=== PATIENT | female | born 1960 | race Caucasian/White ===

== ENCOUNTER → 2016-11-22 | Outpatient (CLI) | payer OTHER ==
[~2016-11-22] MED LIST: ATOR-22 PO; ATV1 PO; CHOL100027 PO; CLON0.5T3 PO; CYM/30 PO; GABA1CAP5 PO; GADAVIST IV PRN; LIOT1TAB10 PO; MAGN400T5 PO; OMEG10007 PO; SOLUMEDROL IV; VITAMIN B12 PO
--- NOTE | 2016-11-22 12:15 | DIAGNOSTIC IMAGING REPORT ---
CERVICAL SPINE COMBO HISTORY: 56 years-old Female bilateral arm and leg weakness with multiple sclerosis and radiculopathy. COMPARISON: MRI of the brain 11/29/2011 TECHNIQUE: Multiplanar multisequence MRI of the cervical spine was obtained both with and without the intravenous administration of 8.5 mL Gadavist FINDINGS: There is partial bony fusion at C2-C3 involving the posterior intervertebral disc space and the facet joints bilaterally. Again noted are cystic appearing foci measuring up to 1.9 cm in craniocaudal dimension involving the calvarium posterior inferior to the torcula, unchanged which may reflect prominent arachnoid granulations. Posterior fossa is otherwise unremarkable. There is no focal bone marrow edema, fracture or malalignment. Several T2 hyperintense lesions are present throughout the cervical spinal cord extending from C1-T2, located within both the central and peripheral cord. No associated abnormal enhancement within these lesions identified to suggest active demyelination. C2-C3: No central canal or foraminal narrowing. C3-C4: No central canal or foraminal narrowing. C4-C5: Minimal uncovertebral spurring and facet arthrosis without significant central canal or foraminal narrowing. C5-C6: 3 mm posterior listhesis of C5 on C6, likely on a degenerative basis is present with small circumferential annular disc bulge, small annular tear and uncovertebral spurring causing mild central canal stenosis. Bilateral foramen are patent. C6-C7: Small broad-based posterior disc osteophyte complex partially effaces the ventral thecal sac without significant central canal or foraminal narrowing. C7-T1: Uncovertebral spurring and mild facet arthrosis without central canal or foraminal narrowing. No central canal or foraminal stenosis identified involving the imaged upper thoracic levels. IMPRESSION: 1. Several T2 hyperintense lesions scattered throughout the cervical cord are noted, most compatible with patient's known diagnosis of multiple sclerosis. No associated enhancement identified to suggest active demyelination. 2. Mild discogenic degenerative changes of the cervical spine, most pronounced at C5-C6 and C6-C7. At C5-C6 there is resultant mild central canal stenosis. 3. 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 The above report was generated using voice recognition software. It may contain grammatical, syntax or spelling errors. Electronically signed by: Melvin Crooks M.D. 11/22/2016 12:14 PM Dictated Date/Time: 11/22/2016 9:56 AM
== END | disposition home or self-care (01) ==
LOC: C.MRI 08:55
PROVIDERS: ATTEND Psychiatry & Neurology Neurology
DX: G35 Multiple sclerosis (principal)

== ENCOUNTER 2023-03-15 10:54 | Inpatient (IN) ==
[2023-03-15] MEDS ORDERED: ONDANSETRON INJ 2 MG/ML 2 ML VIAL IV STA (11:21)
[2023-03-15] MEDS ORDERED: MoRPHine SULFATE 4 MG/ML 1 ML CARP\\VIAL IV STA (11:21)
[2023-03-15] MEDS ORDERED: SODIUM CHLORIDE 0.9% 1,000 ML IV ONE (12:50)
[2023-03-15 13:12] LABS: Basophils # (auto) 0.04 K/uL (0.00-0.20); Basophils % (auto) 0.5 %; Eosinophils # (auto) 0.05 K/uL (0.00-0.50); Eosinophils % (auto) 0.6 %; Hematocrit (blood only) 47.5 % (37.0-47.0); Hemoglobin 15.9 g/dl (12.0-16.0); Immature Granulocytes # (auto) 0.04 K/uL (0.01-0.20); Immature Granulocytes % (auto) 0.5 %; Lymphocytes # (auto) 2.41 K/uL (1.20-3.40); Mean Corpuscular Hemoglobin 28.6 pg (25.0-34.0); Mean Corpuscular Hgb Conc 33.5 g/dL (32.0-36.0); Mean Corpuscular Volume 85.6 fL (80.0-100.0); Mean Platelet Volume 9.1 fL (9.4-12.4); Monocytes # (auto) 0.49 K/uL (0.11-0.59); Monocytes % (auto) 6.1 %; Neutrophils % (auto) 62.3 %; Platelet Count 345 K/uL (130-400); RDW Coefficient of Variation 13.3 % (11.5-14.5); RDW Standard Deviation 41.9 fL (36.4-46.3); Red Blood Count 5.55 M/uL (4.20-5.40); White Blood Count 8.03 K/ul (4.8-10.8)
[2023-03-15 13:24] LABS: Albumin Globulin Ratio 1.6 (0.9-2); Albumin Level 4.4 gm/dl (3.4-5.0); BUN Creatinine Ratio 21.2 (10-20); Bilirubin,Total 1.2 mg/dl (0.2-1.0); Calcium 9.5 mg/dl (8.6-10.3); Creatinine Clr Calc Pharmacy 66.5 ml/min; Est GFR (African American) 85.1 ml/min; Est GFR (Non-African American) 73.4 ml/min; Globulin 2.7 gm/dl (2.5-4.0); Potassium 3.9 mmol/L (3.5-5.1); Total Protein 7.1 gm/dl (6.0-8.3)
--- NOTE | 2023-03-15 13:24 | XRay Report ---
XR wrist LT min 3V routine CLINICAL HISTORY: L wrist injury s/p fall from ladder TECHNIQUE: 4 views of the left wrist were obtained. Comparison: None available at the time of this dictation. FINDINGS: There is a fracture of the distal radial metadiaphysis with apex anterior angulation and mild posteri or displacement. Articular surface involvement is not definitely visualized. Joint spaces are well-pr eserved. Soft tissue swelling is seen about the wrist. IMPRESSION: Mildly displaced fracture of the distal radius with associated soft tissue swelling. ACT 112: Negative or not required by law. Electronically signed by: Delonte Valenzuela M.D. 03/15/2023 1:23 PM
--- NOTE | 2023-03-15 13:24 | XRay Report ---
XR ankle LT min 3V routine CLINICAL HISTORY: L ankle injury s/p fall from ladder COMPARISON: None FINDINGS: Note is made of an acute oblique minimally displaced fracture of the distal shaft of the l eft fibula. This extends from the level of the tibiotalar joint 3.8 cm proximally. No ankle mortise w idening is identified. No acute fracture the distal left tibia is identified. Posterior and plantar c alcaneal spurs are present. Moderate anterolateral ankle soft tissue swelling is noted. A 8 mm lucent lesion with thin sclerotic margin within the talar dome is present. This is benign and could be rela lillian to a degenerative process such as an osteochondral abnormality. IMPRESSION: 1. Acute oblique minimally displaced fracture of the distal shaft of the left fibula, as described ab milana. 2. No ankle mortise widening. 3. No acute distal left tibial fracture. 4. Anterolateral ankle soft tissue swelling. ACT 112: Negative or not required by law. Electronically signed by: Tano Brady M.D. 03/15/2023 1:23 PM
[2023-03-15 13:30] LABS: Troponin I High Sensitivity 2.7 pg/ml (0-14)
--- NOTE | 2023-03-15 13:32 | XRay Report ---
XR chest 1V portable CLINICAL HISTORY: Fall. Chest pain. COMPARISON STUDY: Chest radiograph August 13, 2015. FINDINGS: Lung volumes are normal. Lungs are clear. There is no pneumothorax or pleural effusion. Car diac size is normal. Mediastinal contours are normal. There is no evidence for pulmonary edema. IMPRESSION: No acute cardiopulmonary findings. ACT 112: Negative or not required by law. Electronically signed by: Tano Brady M.D. 03/15/2023 1:29 PM
--- NOTE | 2023-03-15 14:57 | Emergency Department Note ---
ED Provider Note History of Present Illness Chief Complaint: Fall Stated Complaint: FALL POSS FX LEFT ARM Time Seen by Provider: 03/15/23 11:07 63-year-old female who presents to the emergency department for evaluation of injuries after she fell off of a small stepstool while attempting to hang curtains in her home. The patient reports losing her balance and falling. She reports left wrist and left ankle pain. She denies head injury, neck pain, back pain, chest pain or abdominal pain. The patient rates her discomfort a 9 out of 10. The patient does have a history of multiple sclerosis. She does use a cane in her right hand for ambulatory assistance. Home Medications Medication Instructions Recorded Confirmed Type atorvastatin 40 mg tablet 40 mg PO DAILY 03/15/23 03/15/23 History cholecalciferol (vitamin D3) 25 1,000 unit PO DAILY 03/15/23 03/15/23 History mcg (1,000 unit) capsule (Vitamin D3) clonazepam 0.5 mg tablet 0.5 mg PO HS 03/15/23 03/15/23 History cyanocobalamin (vitamin B-12) 1,000 mcg PO QPM 03/15/23 03/15/23 History 1,000 mcg tablet (Vitamin B-12) docusate sodium 100 mg tablet 100 mg PO BID PRN Constipation 03/15/23 03/15/23 History duloxetine 30 mg capsule,delayed 30 mg PO DAILY 03/15/23 03/15/23 History release duloxetine 60 mg capsule,delayed 60 mg PO DAILY 03/15/23 03/15/23 History release gabapentin 400 mg capsule 400 mg PO QID 03/15/23 03/15/23 History liothyronine 5 mcg tablet 12.5 mcg PO DAILY 03/15/23 03/15/23 History magnesium oxide 400 mg PO QPM 03/15/23 03/15/23 History Allergies Allergy/AdvReac Type Severity Reaction Status Date / Time nickel Allergy Intermediate itchy ears Verified 03/15/23 15:00 with earrings WITH NICKEL -gets infected PER PT Past Med/Surg History Medical History Tobacco use Depression Hyperlipidemia Multiple sclerosis Surgical History Hx of tonsillectomy History of cholecystectomy Family History Other Breast cancer Cancer Diabetes Heart disease Social History Smoking Status: Current every day smoker Cigarettes Per Day: 0.5-1ppd; Hx Alcohol Use: No Hx Substance Use: No Preferred Language: Albanian marital status: Current Living Situation: Spouse Feels Safe at Home: Yes Physical Exam Vital Signs Vital Signs - 24 hr 03/15/23 11:01 03/15/23 12:44 03/15/23 12:46 Temperature 36.5 C Temperature Source Temporal Artery Scan Pulse Rate 69 41 L 49 L Pulse Rate from SpO2 Sensor 41 L Pulse Rhythm Regular Pulse Strength Normal Respiratory Rate 20 20 Respiratory Effort / Characteristics Non-Labored Spontaneous Respiratory Depth Normal Respiratory Pattern Regular Blood Pressure 116/63 60/34 L Blood Pressure Mean 80 42 Blood Pressure Position Sitting Pulse Oximetry 99 95 Oxygen Delivery Method Room Air Room Air Oxygen Flow Rate Sepsis Recent Fever Within 48 Hours No Sepsis New/Unexplained Change in Mental Status No Sepsis Action Taken by Nursing No Action Required 03/15/23 12:46 03/15/23 14:24 Temperature Temperature Source Pulse Rate 61 79 Pulse Rate from SpO2 Sensor 61 78 Pulse Rhythm Pulse Strength Respiratory Rate 19 19 Respiratory Effort / Characteristics Respiratory Depth Respiratory Pattern Blood Pressure 105/67 124/89 Blood Pressure Mean 79 100 Blood Pressure Position Pulse Oximetry 94 99 Oxygen Delivery Method Nasal Cannula Room Air Oxygen Flow Rate 4 Sepsis Recent Fever Within 48 Hours Sepsis New/Unexplained Change in Mental Status Sepsis Action Taken by Nursing CONSTITUTIONAL: Healthy and well nourished. Patient appears in moderate severe discomfort. HEENT: Normocephalic, atraumatic. Pupils equal, round and reactive. No facial abrasions, epistaxis, raccoon's eyes or Enamorado sign NECK: Full active range of motion without discomfort. RESPIRATORY: Clear to auscultation bilaterally with no wheezing, crackles, rhonchi or stridor. CARDIOVASCULAR: Regular rate and rhythm with no murmurs, rubs or gallops. GASTROINTESTINAL: Bowel sounds present in all quadrants. Soft and nontender to palpation MUSCULOSKELETAL: Examination shows a closed deformity of the left wrist. She has mild tenderness through the distal forearm region as well. No additional focal tenderness to palpation through the hand. Examination of the left ankle shows mild lateral edema without open wounds. She is tender over the lateral malleolus. No focal tenderness over the deltoid ligament, Achilles tendon or dorsal midfoot. Pedal pulses are intact. INTEGUMENTARY: No rash or other significant dermatologic conditions noted. HEMATOLOGIC: No ecchymosis or petechiae. PSYCHIATRIC: Positive affect. NEUROLOGIC: Left upper and lower extremities are sensory intact. Course Course Patient history and physical exam were performed. Nurses notes were reviewed. Vital signs were reviewed. IV access was established, and labs were drawn. The patient was administered IM morphine and Zofran for pain control. X-rays of the left wrist and ankle were performed, showing a comminuted intra-articular and displaced distal radius fracture, as well as an ulnar styloid fracture. X-rays of the left ankle shows a distal fibular fracture. When I went back into assess the patient's pain response, the nurse indicated that the patient's blood pressure was dropping into the 60s over 30s. Upon quick reassessment, the patient had a good O2 saturation. The patient was administered a normal saline 1 L bolus. She was placed in reverse Trendelenburg position. The patient was also complaining of central chest discomfort. An ECG was performed and was normal. Additional labs were ordered, with a normal troponin. The patient did report improvement of her pain, but still had persistent chest discomfort. It is noted that her hypotension quickly resolved. Findings were discussed with the patient. The case was also discussed with Dr. Hoover, ED attending physician. I reached out to Dr. Valera, [facility] surgeon on-call. I explained the patient's history, and with her current fractures, would have difficulty ambulating. Also explained that with the patient's chest discomfort, she would likely need further observation for cardiac monitoring. At this point, he recommended application of Ortho-Glass splints, and they can be consulted for further initial nonoperative management. A posterior Ortho-Glass splint was applied to the left ankle, and volar splint to the left wrist. The case was discussed with our Landscape And Yardwork Laborer, as well as the [facility] hospitalist group, who came to the emergency department for further evaluation. Please see the hospitalist and orthopedic dictations for further treatment and final disposition. Administered Medications Discontinued Medications Sodium Chloride (Nss) 1,000 mls @ 999 mls/hr IV .Q1H1M ONE Stop: 03/15/23 13:50 Last Infusion: 03/15/23 15:08 Dose: Infused Documented By: Admin: 03/15/23 13:24 Dose: 999 mls/hr Documented By: MATILDE Famotidine 20 mg/ Syringe 5 mls @ 2.5 mls/min IV ONE ONE Stop: 03/15/23 15:19 Last Admin: 03/15/23 16:14 Dose: 2.5 mls/min Documented By: IESHA Ketorolac Tromethamine (Ketorolac Tromethamine 15 Mg/Ml Vial) 15 mg IV NOW STA Stop: 03/15/23 15:10 Last Admin: 03/15/23 15:25 Dose: 15 mg Documented By: IESHA Morphine Sulfate (Morphine Sulfate 4 Mg/Ml 1 Ml Carp\Vial) 4 mg IV NOW STA Stop: 03/15/23 11:22 Last Admin: 03/15/23 11:35 Dose: 4 mg Documented By: SHANEL Ondansetron HCl (Ondansetron Inj 2 Mg/Ml 2 Ml Vial) 4 mg IV NOW STA Stop: 03/15/23 11:22 Last Admin: 03/15/23 11:35 Dose: 4 mg Documented By: SHANEL Medical Decision Making Medical Records Attestation: I reviewed the patient's medical records. Home Medications was personally reviewed by me Laboratory Data Attestation: I reviewed the patient's lab results. 03/15/23 11:25 03/15/23 11:25 Lab Results 03/15/23 03/15/23 Range/Units 11:25 14:29 WBC 8.03 (4.8-10.8) K/ul RBC 5.55 H (4.20-5.40) M/uL Hgb 15.9 (12.0-16.0) g/dl Hct 47.5 H (37.0-47.0) % MCV 85.6 (80.0-100.0) fL MCH 28.6 (25.0-34.0) pg MCHC 33.5 (32.0-36.0) g/dL RDW Std Deviation 41.9 (36.4-46.3) fL RDW Coeff of Todd 13.3 (11.5-14.5) % Plt Count 345 (130-400) K/uL MPV 9.1 L (9.4-12.4) fL Immature Gran % (Auto) 0.5 % Neut % (Auto) 62.3 % Lymph % (Auto) 30.0 % [place] % (Auto) 6.1 % Eos % (Auto) 0.6 % Baso % (Auto) 0.5 % Neut # (Auto) 5.00 (1.40-6.50) K/uL Lymph # (Auto) 2.41 (1.20-3.40) K/uL [place] # (Auto) 0.49 (0.11-0.59) K/uL Eos # (Auto) 0.05 (0.00-0.50) K/uL Baso # (Auto) 0.04 (0.00-0.20) K/uL Immature Gran # (Auto) 0.04 (0.01-0.20) K/uL Sodium 139 (136-145) mmol/L Potassium 3.9 (3.5-5.1) mmol/L Chloride 107 (98-107) mmol/L Carbon Dioxide 26 (21-32) mmol/L Anion Gap 6 (3-11) BUN 18 (6-23) mg/dl Creatinine 0.85 (0.6-1.2) mg/dl Est Cr Clr Drug Dosing 66.5 ml/min Est GFR ( Amer) 85.1 ml/min Est GFR (Non-Af Amer) 73.4 ml/min BUN/Creatinine Ratio 21.2 H (10-20) Glucose 105 H (70-99(Fasting)) mg/dl Calcium 9.5 (8.6-10.3) mg/dl Total Bilirubin 1.2 H (0.2-1.0) mg/dl AST 13 (13-39) U/L ALT 13 (7-52) U/L Alkaline Phosphatase 74 (34-104) U/L Troponin I High Sens 2.7 2.9 (0-14) pg/ml Total Protein 7.1 (6.0-8.3) gm/dl Albumin 4.4 (3.4-5.0) gm/dl Globulin 2.7 (2.5-4.0) gm/dl Albumin/Globulin Ratio 1.6 (0.9-2) Imaging Data Attestation: I personally reviewed and interpreted this imaging study as follows: My Impression: My interpretation of left ankle x-rays shows an oblique distal fibular fracture without ankle mortise asymmetry or dislocation. My interpretation of left wrist x-ray shows a comminuted intra-articular and distal radius fracture with mild apex anterior angulation, and dorsal displacement. My interpretation of the portable chest x-ray does not show evidence for pneumothorax, consolidations or cardiomegaly. Radiologist reports were also reviewed with concurrence. Radiologist's Impression: Ankle X-Ray 03/15/23 11:21 XR ankle LT min 3V routine CLINICAL HISTORY: L ankle injury s/p fall from ladder COMPARISON: None FINDINGS: Note is made of an acute oblique minimally displaced fracture of the distal shaft of the left fibula. This extends from the level of the tibiotalar joint 3.8 cm proximally. No ankle mortise widening is identified. No acute fracture the distal left tibia is identified. Posterior and plantar calcaneal spurs are present. Moderate anterolateral ankle soft tissue swelling is noted. A 8 mm lucent lesion with thin sclerotic margin within the talar dome is present. This is benign and could be related to a degenerative process such as an osteochondral abnormality. IMPRESSION: 1. Acute oblique minimally displaced fracture of the distal shaft of the left fibula, as described above. 2. No ankle mortise widening. 3. No acute distal left tibial fracture. 4. Anterolateral ankle soft tissue swelling. ACT 112: Negative or not required by law. Electronically signed by: Tano Brady M.D. 03/15/2023 1:23 PM Wrist X-Ray 03/15/23 11:21 XR wrist LT min 3V routine CLINICAL HISTORY: L wrist injury s/p fall from ladder TECHNIQUE: 4 views of the left wrist were obtained. Comparison: None available at the time of this dictation. FINDINGS: There is a fracture of the distal radial metadiaphysis with apex anterior angulation and mild posterior displacement. Articular surface involvement is not definitely visualized. Joint spaces are well-preserved. Soft tissue swelling is seen about the wrist. IMPRESSION: Mildly displaced fracture of the distal radius with associated soft tissue swelling. ACT 112: Negative or not required by law. Electronically signed by: Delonte Valenzuela M.D. 03/15/2023 1:23 PM Chest X-Ray 03/15/23 12:49 XR chest 1V portable CLINICAL HISTORY: Fall. Chest pain. COMPARISON STUDY: Chest radiograph August 13, 2015. FINDINGS: Lung volumes are normal. Lungs are clear. There is no pneumothorax or pleural effusion. Cardiac size is normal. Mediastinal contours are normal. There is no evidence for pulmonary edema. IMPRESSION: No acute cardiopulmonary findings. ACT 112: Negative or not required by law. Electronically signed by: Tano Brady M.D. 03/15/2023 1:29 PM MDM Narrative Definitive Fracture Care: Left distal fibula and left distal radius fractures, closed, mild to moderate displacement. Plan: immobilization, appropriate parenteral analgesics, further inpatient orthopedic management. Splint Care: After the Orthoglass splint was applied by the ED photovoltaic technician, I examined the splint and confirmed proper application/placement/position. Neurovascular status was intact both proximal and distal to the splinted area. See ED Course section for further details of today's visit. The patient presents for evaluation of injuries after she fell off of a stepstool, causing a fracture of her left distal radius and left distal fibula. While in the emergency department, the patient was administered IV morphine for pain control. She subsequently developed anterior chest pain with normal initial ECG and troponin studies. With persistent chest pain, additional serial ECGs and enzymes will need to be repeated. The case was also discussed with orthopedics, who will plan on nonoperative management for now, with further decisions on fracture care and ambulatory capabilities given the patient's history of multiple sclerosis, and typical use of a cane. At this point, I do not suspect any other significant trauma, therefore further advanced imaging was deferred. Impression Closed fracture of left distal radius, Closed fracture of distal end of left fibula, Atypical chest pain, History of multiple sclerosis Discharge Plan Visit Data Chief Complaint: Fall Stated Complaint: FALL POSS FX LEFT ARM ED Provider: Jordy Hoover ED Midlevel Provider: Zaid Rocha Discharge Problem: Closed fracture of left distal radius, Closed fracture of distal end of left fibula, Atypical chest pain, History of multiple sclerosis Patient Disposition: Admitted As Inpatient Discharge Instructions Interventions: ED Discharge Assessment Last Done: 03/15/23 16:19 Discharge Problem: Closed fracture of left distal radius Qualifiers: Encounter type: initial encounter Fracture morphology: other intra-articular Q ualified Code(s): S52.572A - Other intraarticular fracture of lower end of left radius, initial encounter for closed fracture Closed fracture of distal end of left fibula Qualifiers: Encounter type: initial encounter Fracture morphology: other fracture Qualified Code(s): S82.832A - Other fracture of upper and lower end of left fibula, initial encounter for closed fracture
[2023-03-15] MEDS ORDERED: KETOROLAC TROMETHAMINE 15 MG/ML VIAL IV STA (15:09)
--- NOTE | 2023-03-15 15:13 | History & Physical Report ---
Date of Service March 15, 2023 Assessment & Plan (1) Closed fracture of distal end of left fibula: (2) Closed fracture of left distal radius: Plan: Patient is 63 y/o female with PMH MS, depression, anxiety, HLD, tobacco use presented to ER with complaint of fall off step stool and left wrist and left ankle pain Left wrist xray: Mildly displaced fracture of the distal radius with associated soft tissue swelling. Left ankle xray: Acute oblique minimally displaced fracture of the distal shaft of the left fibula In ER splints applied to left wrist and left ankle Scheduled Tylenol. Toradol, oxycodone prn pain. Will monitor pain control response and consider adding additional agent if needed. Patient unfortunately had hypotensive episode after morphine 4mg in ER. NPO midnight Will make non-weight bearing LLE PT/OT eval when appropriate Ortho consult (3) Chest pain: Plan: In ER initial vitals were stable and initial HS troponin: 2.7. Was morphine 4 mg IV and after had BP of 60/34, pulse in the 40s with near syncopal episode. Patient was placed in Trendelenburg position and given 1L NSS with pulse in 60s- 70s and BP up to 124/89. After this hypotensive episode patient developed epigastric discomfort described as "burning" sensation that radiated across lower chest. Patient states symptoms improved during ER course and then had recurrent episode of discomfort At time of my evaluation CP symptoms resolved and vitals stable. EKG: sinus bradycardia, rate 59, no ST elevation per my interpretation CXR: no acute cardiopulmonary findings Repeat HS troponin 2.9 Episode likely secondary to hypotensive episode. R/O ACS. R Repeat EKG in am Will trend troponin If troponins uptrending or recurrent CP consider echo and cardiology consult (4) Multiple sclerosis: Plan: Continue gabapentin, Cymbalta for her neuropathic pain Follows with [facility], Dr Roa (5) Hyperlipidemia: Plan: Continue atorvastatin (6) Depression: Plan: Depression, Anxiety Continue Cymbalta, clonazepam, Cytomel Follows with psychiatry DVT Prophylaxis SCDs Full Code as per discussion with pt Follows with Dr Love for routine care Pt was seen and care coordinated with Dr Rico. See addendum History of Present Illness Chief Complaint: Fall Primary Care Provider: Key Love MD Patient is 63 y/o female with PMH MS, depression, anxiety, HLD, tobacco use presented to ER with complaint of fall. History obtained from patient, patient's spouse as well as outpatient chart review. Patient states at baseline intermittently will use a cane using her right hand however typically ambulates without assistive devices. States today she was on a 2 foot high stepstool hanging curtains when she struggled with curtain leighton causing her to lose balance and fall onto floor. Patient states she knows she had her left hand/wrist on a wooden chest. She does not think she hit her head. Denies LOC. Patient states was eventually able to get get her self up and into a chair. Complains of pain to left wrist as well as left lower leg and ankle. Denies fever/chills, diaphoresis, N/V/D/C, GROVER, dizziness, syncope, vision changes, neck pain, CP, SOB, orthopnea, palpitations, cough, sore throat, choking, otalgia, rhinorrhea, abdominal pain, paresthesias, weakness, extremity weakness, extremity edema, rashes, urinary symptoms. In ER initial vitals were stable and initial HS troponin was negative. She was found to have distal fibular fracture and distal radius fracture. She was given morphine 4 mg IV and after had BP of 60/34, pulse in the 40s with near syncopal episode. Patient was placed in Trendelenburg position and given 1L NSS with pulse in 60s-70s and BP up to 124/89. After this hypotensive episode patient developed epigastric discomfort described as "burning" sensation that radiated across lower chest. Patient states symptoms improved during ER course and then had recurrent episode of discomfort to epigastric and lower chest that she describes as a "hurt" but not severe pain. At time of my evaluation CP symptoms resolved and vitals stable. Allergies Allergy/AdvReac Type Severity Reaction Status Date / Time nickel Allergy Intermediate itchy ears Verified 03/15/23 15:00 with earrings WITH NICKEL -gets infected PER PT Home Medications Medication Instructions Recorded Confirmed Type atorvastatin 40 mg tablet 40 mg PO DAILY 03/15/23 03/15/23 History cholecalciferol (vitamin D3) 25 1,000 unit PO DAILY 03/15/23 03/15/23 History mcg (1,000 unit) capsule (Vitamin D3) clonazepam 0.5 mg tablet 0.5 mg PO HS 03/15/23 03/15/23 History cyanocobalamin (vitamin B-12) 1,000 mcg PO QPM 03/15/23 03/15/23 History 1,000 mcg tablet (Vitamin B-12) docusate sodium 100 mg tablet 100 mg PO BID PRN Constipation 03/15/23 03/15/23 History duloxetine 30 mg capsule,delayed 30 mg PO DAILY 03/15/23 03/15/23 History release duloxetine 60 mg capsule,delayed 60 mg PO DAILY 03/15/23 03/15/23 History release gabapentin 400 mg capsule 400 mg PO QID 03/15/23 03/15/23 History liothyronine 5 mcg tablet 12.5 mcg PO DAILY 03/15/23 03/15/23 History magnesium oxide 400 mg PO QPM 03/15/23 03/15/23 History Past Med/Surg History Medical History Tobacco use Depression Hyperlipidemia Multiple sclerosis Surgical History Hx of tonsillectomy History of cholecystectomy Family History Other Breast cancer Cancer Diabetes Heart disease Social History Smoking Status: Current every day smoker Tobacco Type: Cigarettes Cigarettes Per Day: 0.5-1ppd; Second Hand Exposure: Yes; Do You Dip or Chew Tobacco: No; Tobacco Cessation Education Requested by Patient: No Hx Alcohol Use: Yes Alcohol type: beer, wine and hard liquor Hx Substance Use: No Preferred Language: Nepali Communication Ability: Effective Manager Of Training And Development Required: No Beliefs That Will Affect Care: None marital status: Current Living Situation: Spouse Other Information That Helps Us Care for You: No Feels Safe at Home: Yes Safety Concerns: Feels Safe At This Time Assistive Devices: Cane Review of Systems Review of Systems: All systems reviewed & are unremarkable except as noted in HPI & below Physical Exam Physical Exam: General: no acute distress, WDWN Head: normocephalic, atraumatic Eyes: PERRL, EOM's intact, conjunctiva non-injected, anicteric ENT: normal inspection external ears, nose, mucous membranes moist Neck: supple, trachea midline, non-tender, ROM intact Lungs: clear, no respiratory distress, no wheezing/rhonchi/rales CV: RRR, no murmur, no pretibial edema Abd: normal BS, soft, non-tender Ext: no cyanosis, no calf tenderness; LUE: shoulder and elbow normal appearance and non-tender, left wrist with +edema worse over distal radial aspect with tenderness to palpation, sensation to light touch intact, distal pulses intact. LLE: hip, thigh, knee and foot with no tenderness to palpation. +edema left a nkle with tenderness to palpation lateral aspect, distal pulses intact, sensation to light touch intact. RUE normal appearance, non-tender and ROM intact. RLE: normal appearance, non- tender and ROM intact. Neuro: A&O x 3, no focal deficits noted, normal affect Skin: warm, dry Results & Data Results & Data Vital Signs (Past 12 Hours) Vital Signs Temp Pulse Resp BP Pulse Ox O2 Del Method O2 Flow Rate 03/15/23 14:24 79 19 124/89 99 Room Air 03/15/23 12:46 61 19 105/67 94 Nasal Cannula 4 03/15/23 12:46 49 L 03/15/23 12:44 41 L 20 60/34 L 95 Room Air 03/15/23 11:01 36.5 C 69 20 116/63 99 Room Air Laboratory Results Short CBC 03/15/23 Range/Units 11:25 WBC 8.03 (4.8-10.8) K/ul Hgb 15.9 (12.0-16.0) g/dl Hct 47.5 H (37.0-47.0) % Plt Count 345 (130-400) K/uL BMP 03/15/23 11:25 Sodium 139 Potassium 3.9 Chloride 107 Carbon Dioxide 26 BUN 18 Creatinine 0.85 Glucose 105 H Calcium 9.5 Liver Function 03/15/23 Range/Units 11:25 Total Bilirubin 1.2 H (0.2-1.0) mg/dl AST 13 (13-39) U/L ALT 13 (7-52) U/L Alkaline Phosphatase 74 (34-104) U/L Albumin 4.4 (3.4-5.0) gm/dl Diagnostic Findings Ankle X-Ray 03/15/23 11:21 XR ankle LT min 3V routine CLINICAL HISTORY: L ankle injury s/p fall from ladder COMPARISON: None FINDINGS: Note is made of an acute oblique minimally displaced fracture of the distal shaft of the left fibula. This extends from the level of the tibiotalar joint 3.8 cm proximally. No ankle mortise widening is identified. No acute fracture the distal left tibia is identified. Posterior and plantar calcaneal spurs are present. Moderate anterolateral ankle soft tissue swelling is noted. A 8 mm lucent lesion with thin sclerotic margin within the talar dome is present. This is benign and could be related to a degenerative process such as an osteochondral abnormality. IMPRESSION: 1. Acute oblique minimally displaced fracture of the distal shaft of the left fibula, as described above. 2. No ankle mortise widening. 3. No acute distal left tibial fracture. 4. Anterolateral ankle soft tissue swelling. ACT 112: Negative or not required by law. Electronically signed by: Tano Brady M.D. 03/15/2023 1:23 PM Wrist X-Ray 03/15/23 11:21 XR wrist LT min 3V routine CLINICAL HISTORY: L wrist injury s/p fall from ladder TECHNIQUE: 4 views of the left wrist were obtained. Comparison: None available at the time of this dictation. FINDINGS: There is a fracture of the distal radial metadiaphysis with apex anterior angulation and mild posterior displacement. Articular surface involvement is not definitely visualized. Joint spaces are well-preserved. Soft tissue swelling is seen about the wrist. IMPRESSION: Mildly displaced fracture of the distal radius with associated soft tissue swelling. ACT 112: Negative or not required by law. Electronically signed by: Delonte Valenzuela M.D. 03/15/2023 1:23 PM Chest X-Ray 03/15/23 12:49 XR chest 1V portable CLINICAL HISTORY: Fall. Chest pain. COMPARISON STUDY: Chest radiograph August 13, 2015. FINDINGS: Lung volumes are normal. Lungs are clear. There is no pneumothorax or pleural effusion. Cardiac size is normal. Mediastinal contours are normal. There is no evidence for pulmonary edema. IMPRESSION: No acute cardiopulmonary findings. ACT 112: Negative or not required by law. Electronically signed by: Tano Brady M.D. 03/15/2023 1:29 PM Supervising Physician Co-Signing Physician Notes I have seen and discussed the case with the collaborating PAKeyla. I agree with the above H&P. I have reviewed and confirmed the patients medical history, the findings on physical examination, and the patients diagnosis and treatment plan with Dave VILLANUEVA and agree with the information documented. In short, Ms. Wade is a 63 year old woman with MS who sustained a fall while balancing on step stool. Imaging revealed left radial fracture and left fibular fracture. Patient initially set to discharge home, but sustained profound hypotensive response to morphine administered in ED with subsequent chest pain. Exam revealed a fairly anxious woman eager for discharge, denying any pain on exam. MSK exam revealed soft tissue swelling of left wrist and left ankle, but otherwise unremarkable exam. Plan for Ortho consult, pain management. GIven acute chest pain episode, will monitor on tele and trend trop, however,likely secondary to hypotensive episode from morphine. CTM. Rest of plan as above. (1) Closed fracture of distal end of left fibula Encounter type: initial encounter Fracture morphology: other fracture Qualified Code(s): S82.832A - Other fracture of upper and lower end of left fibula, initial encounter for closed fracture (2) Closed fracture of left distal radius Encounter type: initial encounter Fracture morphology: other intra-articular Qualified Code(s): S52.572A - Other intraarticular fracture of lower end of left radius, initial encounter for closed fracture
[2023-03-15] MEDS ORDERED: FAMOTIDINE 20 MG in SYRINGE 3 ML IV ONE (15:18)
--- OUTSIDE RECORDS SUMMARY | 2023-03-15 16:23 | External Medical Summary | Summary of Care ---
Author Name Unknown Organization [facility] Address [address] [facility] [facility] [address] Phone [phone] Care Team Providers Care Fiscal Specialist Name Role Phone Key Love MD Primary Care Provider [phone] Reason for Visit * Reason Comments Knee Pain left Joint Pain Right hip Encounter Details Date Type Department Care Team (Latest Contact Info) Description 02/27/2023 11:15 AM EST Office Visit Orthopaedics [facility] [address] [facility] [address] Michael Melgoza, DO [address] [facility] [address] Primary osteoarthritis of left knee*; Greater trochanteric pain syndrome of both lower extremities Allergies No known active allergiesdocumented as of this encounter (statuses as of 02/27/2023) Medications Medication Sig Dispensed Refills Start Date End Date Status VITAMIN D 1000 UNIT PO CAPSIndications:Mul tiple sclerosis (HCC) one po daily 30 6 09/10/2007 Active CYMBALTA 60 MG PO CPEP Take by mouth daily. 0 Active CYMBALTA 30 MG PO CPEP Take by mouth daily. 0 Active Cyanocobalamin 1000 MCG Oral Tablet Take 1 Tablet by mouth every afternoon. 30 Tab 0 06/16/2016 Active liothyronine (CYTOMEL) 5 MCG TabletIndications:O ther depression 2.5 tabs daily per 30 Tab 5 04/20/2017 Active clonazePAM 0.5 MG Oral Tablet Take 1 Tablet by mouth every night at bedtime. 0 Active Vitamin E 100 UNIT Oral Tablet Take 1 Tablet by mouth in the morning. 0 Active Fish Oil 1000 MG Oral Capsule Take 1 Capsule by mouth in the morning. 0 Active Gabapentin 400 MG Oral Capsule (Neurontin) TAKE 1 CAPSULE BY MOUTH FOUR TIMES DAILY 360 Capsule 3 12/01/2022 Active Benefiber Oral PowderIndications:C hronic idiopathic constipation Take 1 Tbsf in a glass of water daily 0 01/03/2023 Active Docusate Sodium 100 MG Oral Capsule (Colace)Indications :Chronic idiopathic constipation Take 1 Capsule by mouth 2 times a day as needed for Constipation. 60 Capsule 11 01/03/2023 Active Atorvastatin Calcium 40 MG Oral Tablet (Lipitor)Indication s:Hyperlipidemia with target LDL less than 100 Take 1 Tablet by mouth in the morning. 90 Tablet 3 01/12/2023 Active methylPREDNISolone 4 MG Oral Tablet Therapy Pack (Medrol Dosepack) follow package directions 21 Tablet 0 02/06/2023 Active Hospital, Clinic, or Other Facility Administered Medication Ordered Dose Route Frequency Start Date End Date Status lidocaine 1% 1 mL - triamcinolone acetonide 40 mg/mL 1 mL inj 2 mLIndications:Greater trochanteric pain syndrome of both lower extremities 2 mL IJ ONCE 02/27/2023 02/27/2023 Ended lidocaine 1% 1 mL - triamcinolone acetonide 40 mg/mL 1 mL inj 2 mLIndications:Greater trochanteric pain syndrome of both lower extremities 2 mL IJ ONCE 02/27/2023 02/27/2023 Ended lidocaine 1% 1 mL - triamcinolone acetonide 40 mg/mL 1 mL inj 2 mLIndications:Primary osteoarthritis of left knee 2 mL IJ ONCE 02/27/2023 02/28/20 Ended documented as of this encounter (statuses as of 02/27/2023) Active Problems Problem Noted Date Diagnosed Date BMI 28.0-28.9,adult 06/29/2022 Constipation 01/15/2020 Tobacco abuse 01/15/2020 Hyperlipidemia with target LDL less than 100 12/2018 Multiple sclerosis 08/03/2007 Current moderate episode of major depressive disorder without prior episode 01/17/2007 documented as of this encounter (statuses as of 02/27/2023) Resolved Problems Problem Noted Date Diagnosed Date Resolved Date Obesity, Class I, BMI 30.0-3 4.9 (see actual BMI) 04/05/2018 06/29/2022 Corticosteroid dependence 06/16/2016 Family history of osteoporosis in mother 04/13/2015 06/16/2017 FH: breast cancer in first degree relative 04/13/2015 06/16/2017 Overview: Sister Obesity, Class II, BMI 35-39 .9, isolated (see actual BMI) 09/07/2009 04/05/2018 Overview: Per Obesity Protocol, #19 ADVANCE DIRECTIVE INFORMATION 10/17/2005 04/05/2018 Overview: Pt accepted brochure. documented as of this encounter (statuses as of 02/27/2023) Immunizations Name Administration Dates Next Due COVID-19 mRNA, LNP-s, No Pre serve, 2-Dose Series (Moderna) 06/29/2020,06/01/2020 Hepatitis B, 20+ yrs 05/28/2002,12/25/2001,11/23 Pneumococcal Polysaccharide PPV23 (Pneumovax) 06/16/2017 SEASONAL INFLUENZA, PF, 6 M & Above, IM , (FLULAVAL or FLUZONE) 01/15/2020 Season Influenza, Cell Culte r, 18+ Yrs, With Preserv (Flucelvax) 04/08/2013 Seasonal Influenza, Quadriva lent, No Preserve, IM 04/13/2015 Seasonal Influenza, Split, I IV3, With Preserve, Inj 01/08/2014 TD - Tetanus/Diptheria (ADULT) 11/23/2001 TDAP (age 10 and older)(Boostrix) 04/08/2013 documented as of this encounter Social History Tobacco Use Types Packs/Day Years Used Date Smoking Tobacco: Every Day Cigarettes 0.5 Smokeless Tobacco: Never Comments:10 cigarettes Alcohol Use Standard Drinks/Week Comments Yes 0 (1 standard drink = 0.6 oz pur e alcohol) 2/month AUDIT-C Answer Date Recorded Frequency of Alcohol Consumption Monthly or less 04/05/2018 Average Number of Drinks 1 or 2 019 Frequency of Binge Drinking Not on file 03/27 PHQ-2 Answer Date Recorded PHQ Adult Total Score 0 06/28/2022 Hunger Vital Sign Answer Date Recorded Within the past 12 months, y ou worried that your food would run out before you got the money to buy more. Never true 06/29/19 23 Within the past 12 months, t he food you bought just didn't last and you didn't have money to get more. Never true 06/28/2022 Sex and Gender Information Value Date Recorded Sex Assigned at Female 07/15/2020 9:05 AM EDT Gender Identity Female 04/20/2020 12:27 PM EST Sexual Orientation Straight 04/20/2020 12 :27 PM EST Job Start Date Occupation Industry Not on file Not on file Not on file documented as of this encounter Progress Notes * Michael Melgoza, DO - 02/27/2023 11:15 AM EST Christa Wade [id number] Christa Wade is a 61 year old female who presents for f/u for right and left troch and left kneeto [facility] Christa Wade is here unaccompanied History: knee last injected 02/07/22 and troch 03/01/22 TODAY:Feels all 3 need injected. This would be the 1st time for the left. Review of Systems: no fevers or chills, no unexplained weight loss, no rashes or all other pertinent systems negative. Patient Active Problem List Diagnosis Code Current moderate episode of major depressive disorder without prior episode (HCC) F32.1 Multiple sclerosis (HCC) G35 Hyperlipidemia with target LDL less than 100 E78.5 Constipation K59.00 Tobacco abuse Z72.0 BMI 28.0-28.9,adult Z68.28 Current Outpatient Medications Medication Sig Dispense Refill VITAMIN D 1000 UNIT PO CAPS one po daily 30 6 CYMBALTA 60 MG PO CPEP Take by mouth daily. CYMBALTA 30 MG PO CPEP Take by mouth daily. Cyanocobalamin 1000 MCG Oral Tablet Take 1 Tablet by mouth every afternoon. 30 Tab 0 liothyronine (CYTOMEL) 5 MCG Tablet 2.5 tabs daily per 30 Tab 5 clonazePAM 0.5 MG Oral Tablet Take 1 Tablet by mouth every night at bedtime. Vitamin E 100 UNIT Oral Tablet Take 1 Tablet by mouth in the morning. Fish Oil 1000 MG Oral Capsule Take 1 Capsule by mouth in the morning. Gabapentin 400 MG Oral Capsule (Neurontin) TAKE 1 CAPSULE BY MOUTH FOUR TIMES DAILY 360 Capsule 3 Benefiber Oral Powder Take 1 Tbsf in a glass of water daily Docusate Sodium 100 MG Oral Capsule (Colace) Take 1 Capsule by mouth 2 times a day as needed for Constipation. 60 Capsule 11 Atorvastatin Calcium 40 MG Oral Tablet (Lipitor) Take 1 Tablet by mouth in the morning. 90 Tablet 3 methylPREDNISolone 4 MG Oral Tablet Therapy Pack (Medrol Dosepack) follow package directions 21 Tablet 0 No current facility-administered medications for this visit. Physical Exam General: in no acute distress Mood and Affect: normal Gait and Station: mildly antalgic ROM: normal and symmetric in actively flexion, extension, internal and external rotation in Bilateral Palpation: Significiant tenderness to palpation over greater trochanter on the bilateral Strength: Abduction: R - 5/5 L - 5/5 Internal Rotation: R - 5/5 L - 5/5 Quads: R - 5/5 L - 5/5 Hams: R - 5/5 L - 5/5 Adduction: R - 5/5 L - 5/5 Hip/pelvis tests: Modified farhana negative Right Passive internal and external rotation of femoral head negative Bilateral Radiology: not indicated Left knee has full range of motion 0-120. No effusion. Assessment and Plan: See procedure note follow up 3 months. Primary osteoarthritis of left knee (Primary) - lidocaine 1% 1 mL - triamcinolone acetonide 40 mg/mL 1 mL inj 2 mL - INJECT MAJOR JX/BURSA W/O US GUIDE Greater trochanteric pain syndrome of both lower extremities - lidocaine 1% 1 mL - triamcinolone acetonide 40 mg/mL 1 mL inj 2 mL - lidocaine 1% 1 mL - triamcinolone acetonide 40 mg/mL 1 mL inj 2 mL - POINT OF CARE US MAJOR JOINT INJECTION, ORTHO Follow-up: Return in about 3 months (around 05/29/2023). | Check-out note: 30 min f/u b/l troch and left knee Michael Melgoza, DO Primary Care Sports Medicine Orthopaedics [address] [place] [address] Procedure note (trochanteric bursa), B/l Time out: Prior to injection, a time out was called to confirm the administration of appropriate medicine, patient name, procedure and confirm to the best of our ability and knowledge the presence of any necessary risks and benefits. Patient verbalizes understanding. Ultrasound utilized to guide injection Ultrasound required due to patient size (obese), high risk for complications without ultrasound guideance (risk for neurovascular damage) and location of joint being too deep to accurately inject without ultrasound guidance. Sterile techinique applied. Skin sterilized with alcohol swab. Lateral aproach to inject trochanteric bursa using 3.5 inch, 22 gauge needle. Injected with lidocaine 1% 1 mL - triamcinolone acetonide 40 mg/mL 1 mL inj 2 mL . Patient tolerated procedure with no significant bleeding or adverse reaction. Patient instructed to call or return to clinic for fever or warmth and redness at injection site for potential infection. Patient also advised as to potential for steroid flare reaction including increased pain and redness at injection site which should be treated with ice and resolve within 24 hours. Michael Melgoza DO Procedure note (knee injection), left : Time out: Prior to injection, a time out was called to confirm the administration of appropriate medicine, patient name, procedure and confirm to the best of our ability and knowledge the presence of any necessary risks and benefits. Patient verbalizes understanding. Ultrasound utilized to guide injection Ultrasound required due to: patient size (obese) and location of joint being too deep to accuratelyinject without ultrasound guidance Sterile techinique applied. Skin sterilized with alcohol swab. Knee injected using 1.5 inch, 22 gauge needle. Injected with- lidocaine 1% 1 mL - triamcinolone acetonide 40 mg/mL 1 mL inj 2 mL . Patient tolerated procedure with no significant bleeding or adverse reaction. Patient instructed to call or return to clinic for fever or warmth and redness at injection site for potential infection. Patient also advised as to potential for steroid flare reaction including increased pain and redness at injection site which should be treated with ice and resolve within 24 hours. Michael Melgoza DO documented in this encounter Nursing Notes * Rena Caputo LPN - 02/27/2023 11:10 AM EST Left knee and right hip documented in this encounter Plan of Treatment Upcoming Encounters Date Type Department Care Team (Latest Contact Info) Description 03/24/2023 11:15 AM EST Imaging Radiology [address], [place] [address] [place] [address] 03/24/2023 12:30 PM EST Imaging Radiology [address], [place] [address] [place] [address] 03/24/2023 1:15 PM EST Imaging Radiology [address], [place] [address] [place] [address] 05/04/2023 1:00 PM EST Hospital Encounter ENDO OSSC, Endoscopy Room [facility] [address] [place] [id number] Tory He, DO [address] [place] [address] 05/04/2023 1:00 PM EST - 05/04/2023 1:30 PM EST Surgery ENDO OSSC, Endoscopy Room [facility] [address] [place] [id number] Tory He, DO [address] [place] [address] COLONOSCOPY FLEXIBLE PROXIMAL DIAGNOSTIC 06/05/2023 10:15 AM EDT Office Visit Orthopaedics [facility] [address] [place] [address] Michael Melgoza, DO [address] [place] [address] 07/11/2023 2:00 PM EDT Office Visit General Internal Medicine [facility] [place] [address] [place] [address] Key Love MD [address] [facility] [place] [address] 02/05/2024 10:00 AM EST Office Visit Neurology [address] [place] [address] [place] [address] Gayathri Roa MD [address] [facility] [place] [address] Scheduled Orders Name Type Priority Associated Diagnoses Orde r Schedule POINT OF CARE US MAJOR JOINT INJECTION, ORTHO Medical Imaging Routine Greater trochanteric pain syndrome of both lower extremities Ordered: 02/27/2023 INJECT MAJOR JX/BURSA W/O US GUIDE Procedures Routine Primary osteoarthritis of left knee Ordered: 02/27/2023 Scheduled Procedures Name Priority Associated Diagnoses Date/Ti me COLONOSCOPY FLEXIBLE PROXIMAL DIAGNOSTIC Recall Adenomatous polyp of colon, unspecified part of colon 05/04/2023 1:00 PM EST COLONOSCOPY FLEXIBLE PROXIMAL DIAGNOSTIC Recall History of colon polyps Health Maintenance Due Date Last Done Comments HIV Screening 1976 HPV/Co-Test 1991 Zoster Vaccines (1 of 2) 2011 Pneumococcal Vaccine: Pediatrics (0 to 5 Years) and At-Risk Patients (6 to 64 Years) (2 - PCV) 06/16/2018 06/16/2017 COVID-19 Vaccine (3 - 2022- season) 2022 06/29/2020, 06/01/2020 Influenza Vaccine (FLU shot) (#1) 2022 01/15/2020, 04/13/2015, 01/08/2014, Additional history exists COLONOSCOPY-EVERY 3 YRS AGES 18-100 01/06/2023 01/07/2020, 01/07/2020, 06/25/2014, Additional history exists Cervical Cancer Screening 01/14/2023 Pap Smear 01/14/2023 01/15/2020, 07/27, 08/23/2016, Additional history exists DTaP,Tdap,and Td Vaccines (2 - Td or Tdap) 04/08/2023 04/08/2013, 11/23/2001 Depression Screening 06/29/2023 06/28/2022 Mammogram 01/25/2024 01/24/2023, 07/25, 08/10/2021, Additional history exists Diabetes Screening 01/03/2026 01/03/2023, 0 06/28/2022, 12/24/2021, Additional history exists Lipid Panel 01/04/2028 01/03/2023, 06/2022, 12/24/2021, Additional history exists Hepatitis B Completed 05/28/2002, 03/2001, 11/23/2001 COLONOSCOPY-EVERY 5 YRS AGES 18-100 Discontinued 01/07/2020, 01/07/2020, 06/25/2014, Additional history exists GARDASIL-HPV IMMUNIZATION SERIES Aged Out No longer eligible based on patient's age to complete this topic MENINGOCOCCAL (MENACTRA/MENVEO) Aged Out No longer eligible based on patient's age to complete this topic documented as of this encounter Medical Devices Not on filedocumented as of this encounter Visit Diagnoses Diagnosis Primary osteoarthritis of left knee- Primary Primary localized osteoarthrosis, lower leg Greater trochanteric pain syndrome of both lower extremities Adenomatous polyp of colon, unspecified part of colon documented in this encounter Administered Medications Inactive Administered Medications - up to 3 most recent administrations Medication Order MAR Action Action Date Dose Rate Site lidocaine 1% 1 mL - triamcinolone acetonide 40 mg/mL 1 mL inj 2 mL 2 mL, Injection, ONCE, On Mon02/27/23 at 1215, For 1 dose, Lidocaine 1% 1mL Triamcinolone Acetonide 40 mg/mL 1 mL (Final concentration = 20 mg/mL) REFRIGERATE and SHAKE WELL Given 02/27/2023 11:41 AM EST 2 mL Hip Right lidocaine 1% 1 mL - triamcinolone acetonide 40 mg/mL 1 mL inj 2 mL 2 mL, Injection, ONCE, On Mon02/27/23 at 1215, For 1 dose, Lidocaine 1% 1mL Triamcinolone Acetonide 40 mg/mL 1 mL (Final concentration = 20 mg/mL) REFRIGERATE and SHAKE WELL Given 02/27/2023 11:41 AM EST 2 mL Hip Left lidocaine 1% 1 mL - triamcinolone acetonide 40 mg/mL 1 mL inj 2 mL 2 mL, Injection, ONCE, On 02/27/23 at 1215, For 1 dose, Lidocaine 1% 1mL Triamcinolone Acetonide 40 mg/mL 1 mL (Final concentration = 20 mg/mL) REFRIGERATE and SHAKE WELL Given 02/27/2023 11:40 AM EST 2 mL Knee Left documented in this encounter Advance Directives Latest Code Status on File Code Status Date Activated Date Inactivated Comments Full Code 06/30/2020 9:06 AM 06/30/2020 2:17 PM This or gabi reflects the patients wishes and were consensually agreed upon. Care Teams Fiscal Specialist Relationship Specialty Start Date End Date Key Love MD [address] [facility] [place] [address] PCP - General Internal Medicine 11/19/19 documented as of this encounter"
--- OUTSIDE RECORDS SUMMARY | 2023-03-15 16:23 | External Medical Summary | Summary of Care ---
Author Name Unknown Organization [facility] Address [address] [facility] [address] Phone [phone] Care Team Providers Care Probation Officer Name Role Phone Key Love MD Primary Care Provider [phone] Reason for Visit * Reason Comments Knee Pain left Joint Pain Right hip Encounter Details Date Type Department Care Team (Latest Contact Info) Description 02/27/2023 11:15 AM EST Office Visit Orthopaedics [facility] [address] [facility] [address] Michael Melgoza, DO [address] [facility] [address] Primary osteoarthritis of left knee*; Greater trochanteric [...] - 02/27/2023 11:15 AM EST Christa Wade [id number] Christa Wade is a 61 year old female who presents for f/u for right and left troch and left kneeto [facility] Medicine Christa Wade is here unaccompanied [...] Melgoza, DO Primary Care Sports Medicine Orthopaedics [address] [place] [address] Procedure note (trochanteric bursa), B/l Time out: [...] Care Team (Latest Contact Info) Description 02/27/2023 11:45 AM EST Imaging Radiology [place] [address] [facility] [place] [address] Arrived 03/24/2023 11:15 AM EST Imaging Radiology [facility] [address] [facility] [place] [address] [place] [address] 03/24/2023 12:30 PM EST Imaging Radiology [address], [place] [address] [place] [address] 03/24/2023 1:15 PM EST Imaging Radiology [address], [place] [address] [place] [address] 05/04/2023 1:00 PM EST Hospital Encounter ENDO OSSC, Endoscopy Room [facility] [address] [place] [phone] Tory He, DO [address] [place] [address] 05/04/2023 1:00 PM EST - 05/04/2023 1:30 PM EST Surgery ENDO OSSC, Endoscopy Room [facility] [address] [place] [address] Tory He, DO [address] [place] [address] COLONOSCOPY FLEXIBLE PROXIMAL DIAGNOSTIC 06/05/2023 10:15 AM EDT Office Visit Orthopaedics [facility] [address] [place] [address] Michael Melgoza, DO [address] [place] [address] 07/11/2023 2:00 PM EDT Office [facility] [address] [place] [address] Key Love MD [address] [place] [address] 02/05/2024 10:00 AM EST Office Visit Neurology [facility] [place] [address] [facility] [place] [address] Gayathri Roa MD [address] [place] [address] Scheduled Orders Name Type Priority Associated Diagnoses [...] and were consensually agreed upon. Care Teams Probation Officer Relationship Specialty Start Date End Date Key Love MD [address] [facility] [place] [address] PCP - General Internal Medicine 11/19/19 documented as of this encounter"
--- OUTSIDE RECORDS SUMMARY | 2023-03-15 16:23 | External Medical Summary | Summary of Care ---
Author Name Unknown Organization [facility] Address [address] [place] [address] Phone [phone] Care Team Providers Care Electronic Equipment Repairer Name Role Phone Key Love MD Primary Care Provider [phone] Reason for Referral * Precert (Within 10 days (routine)) - Authorized Specialty Diagnoses / Procedures Referred By Contac t Referred To Contact Radiology Diagnoses MS (multiple sclerosis) (HCC) Procedures MRI T SPINE W WO CONTRAST Gayathri Roa MD [address] [place] [address] Referral ID Status Reason Start Date Expiration Date V isits Requested Visits Authorized [id number] Authorized 02/20/2023 999 999 * Precert (Within 10 days (routine)) - Authorized Specialty Diagnoses / Procedures Referred By Contac t Referred To Contact Radiology Diagnoses MS (multiple sclerosis) (HCC) Procedures MRI C SPINE W WO CONTRAST Gayathri Roa MD [address] [place] [address] Referral ID Status Reason Start Date Expiration Date V isits Requested Visits Authorized [id number] Authorized 02/20/2023 999 999 * Precert (Within 10 days (routine)) - Authorized Specialty Diagnoses / Procedures Referred By Contac t Referred To Contact Radiology Diagnoses MS (multiple sclerosis) (HCC) Procedures MRI BRAIN W WO CONTRAST Gayathri Roa MD [address] [place] [address] Referral ID Status Reason Start Date Expiration Date V isits Requested Visits Authorized [id number] Authorized 02/20/2023 999 999 Reason for Visit * Reason Onset Date Comments Advice 02/20/2023 Encounter Details Date Type Department Care Team ([facility] Contact Info) Description 02/20/2023 Telephone Neurology, [place] [address] [place] [address] Specified, Zz No Resource [address] [place] [address] Advice Allergies No known active allergiesdocumented as of this encounter (statuses as of 02/20/2023) Medications Medication Sig Dispensed Refills Start Date [...] package directions 21 Tablet 0 02/06/2023 Active documented as of this encounter (statuses as of 02/20/2023) Active Problems Problem Noted Date Diagnosed Date BMI 28.0-28.9,adult 06/29/2022 Constipation 01/15/2020 Tobacco abuse 01/15/2020 Hyperlipidemia with target LDL less than 100 12/2018 Multiple sclerosis 08/03/2007 Current moderate episode of major depressive disorder without prior episode 01/17/2007 documented as of this encounter (statuses as of 02/20/2023) Resolved Problems Problem Noted Date Diagnosed Date [...] as of this encounter (statuses as of 02/20/2023) Immunizations Name Administration Dates Next Due COVID-19 [...] on file documented as of this encounter Miscellaneous Notes * Telephone Encounter - Gayathri Winston LPN - 02/20/2023 2:24 PM EST Spoke with Dr. Roa via TT. MRI Brain, C spine and T spine ordered. Will wait for results to determine tx. Phone call to Ysabel, patients daughter. Patient is currently visiting her daughter in [place] for a few more days. Ysabel did state that patient has had a cold for a few weeks now. Advised that could be the cause of her symptoms but we wouldn't know for sure until we had the MRI results. Advised to not stop the medrol dose jenifer as it is not advised to stop suddenly. Expressed understanding and will get patient her MRI's when she returns to [place]. * Addendum Note - Gayathri Roa MD - 02/20/2023 2:21 PM ESTAddended by: GAYATHRI ROA on: 02/20/2023 02:21 PM Modules accepted: Orders * Telephone Encounter - More Elizabeth OSA - 02/20/2023 2:14 PM EST Patient verified identity by spelling of last name and date. Christa and her daughter Ysabel called in stating that Christa is having an MS flair up. she is experiencing numbness in hands and feet, she can't think straight, she can't keep her balance or walk well. Christa stated that the prednisone pack is completed. Daughter Ysabel stated that her mother is in p retty bad shape right now and would like to know if there is something she can do. I messaged Gayathri Wniston and she was on the phone at the time but said she would call patient back vic few minutes. I relayed the message to Christa and Ysabel. They understood and thanked me. Please call patient back at [phone] documented in this encounter Plan of Treatment Upcoming Encounters Date Type Department Care Team (Latest Contact Info) Description 02/27/2023 11:15 AM EST Office Visit Orthopaedics [facility] [address] [place] [address] Michael Melgoza DO [address] [place] [address] 05/04/2023 1:00 PM EST Hospital Encounter ENDO [facility], Endoscopy Room [facility] [address] [place] [address] Tory He, DO [address] [place] [address] 05/04/2023 1:00 PM EST - 05/04/2023 1:30 PM EST Surgery ENDO [facility], Endoscopy Room [facility] [address] [place] [address] Tory He, DO [address] [place] [address] COLONOSCOPY FLEXIBLE PROXIMAL DIAGNOSTIC 07/11/2023 2:00 PM EDT Office Visit General Internal Medicine [facility] [place] [address] [place] [address] Key Love MD [address] [facility] [place] [address] 02/05/2024 10:00 AM EST Office Visit Neurology [facility] [address] [place] [address] Gayathri Roa MD [address] [place] [address] Scheduled Orders Name Type Priority Associated Diagnoses Orde r Schedule MRI BRAIN W WO CONTRAST Medical Imaging Routine MS (multiple sclerosis) (HCC) Expected: 02/20/2023, Expires: 03/22/2024 MRI C SPINE W WO CONTRAST Medical Imaging Routine MS (multiple sclerosis) (HCC) Expected: 02/20/2023, Expires: 03/22/2024 MRI T SPINE W WO CONTRAST Medical Imaging Routine MS (multiple sclerosis) (HCC) Ordered: 02/20/2023 Scheduled Procedures Name Priority Associated Diagnoses Date/Ti [...] PCV) 06/16/2018 06/16/2017 COVID-19 Vaccine (3 - season) 2022 06/29/2020, 06/01/2020 Influenza Vaccine (FLU [...] as of this encounter Visit Diagnoses Diagnosis MS (multiple sclerosis) (HCC)- Primary Multiple sclerosis Adenomatous polyp of colon, unspecified part of colon documented in this encounter Advance Directives Latest Code Status on File Code Status Date Activated Date Inactivated Comments Full Code 06/30/2020 9:06 AM 06/30/2020 2:17 PM This or gabi reflects the patients wishes and were consensually agreed upon. Care Teams Electronic Equipment Repairer Relationship Specialty Start Date End Date Key Love MD [address] [place] [address] PCP - General Internal Medicine 11/19/19 documented as of this encounter
--- OUTSIDE RECORDS SUMMARY | 2023-03-15 16:24 | External Medical Summary | Summary of Care ---
Author Name Unknown Organization [facility] Address [address] [place] [address] Phone [phone] Care Team Providers Care Director Treasurer Name Role Phone Key Love MD Primary Care Provider [phone] Reason for Referral * Precert (Within 10 days (routine)) - Authorized Specialty Diagnoses / Procedures Referred By Contac t Referred To Contact Radiology Diagnoses MS (multiple sclerosis) (HCC) Procedures MRI T SPINE W WO CONTRAST Gayathri Roa MD [address] [place] [address] Referral ID Status Reason Start Date Expiration Date V isits Requested Visits Authorized [id number] Authorized 02/20/2023 999 999 * Precert (Within 10 days (routine)) - Authorized Specialty Diagnoses / Procedures Referred By Contac t Referred To Contact Radiology Diagnoses MS (multiple sclerosis) (HCC) Procedures MRI C SPINE W WO CONTRAST Gayathri Roa MD [address] [place] [address] Referral ID Status Reason Start Date Expiration Date V isits Requested Visits Authorized [id number] Authorized 02/20/2023 999 999 * Precert (Within 10 days (routine)) - Authorized Specialty Diagnoses / Procedures Referred By Contac t Referred To Contact Radiology Diagnoses MS (multiple sclerosis) (HCC) Procedures MRI BRAIN W WO CONTRAST Gayathri Roa MD [address] [place] [address] Referral ID Status Reason Start Date Expiration Date V isits Requested Visits Authorized [id number] Authorized 02/20/2023 999 999 Reason for Visit * Reason Onset Date Comments Advice 02/20/2023 Encounter Details Date Type Department Care Team ([facility] Contact Info) Description 02/20/2023 Telephone Neurology, [place] [address] [place] [address] Specified, Zz No Resource [address] [place] [address] Advice Allergies No known active [...] as of this encounter Miscellaneous Notes * Addendum Note - Gayathri Roa MD [...] something she can do. I messaged Gayathri Winston and she was on the phone at the time but said she would call patient back vic few minutes. I relayed the message to Christa and Ysabel. They understood and thanked me. Please call patient back at [phone] documented in this encounter Plan of Treatment Upcoming Encounters Date Type Department Care Team (Latest Contact Info) Description 02/27/2023 11:15 AM EST Office Visit Orthopaedics [facility] [address] [place] [address] Michael Melgoza, DO [address] [place] [address] 05/04/2023 1:00 PM EST Hospital Encounter ENDO [facility], Endoscopy Room [facility] [address] [place] [phone] Tory He, [address] [place] [address] 05/04/2023 1:00 PM EST - 05/04/2023 1:30 PM EST Surgery ENDO [facility], Endoscopy Room [facility] [address] [place] [phone] Tory He, [address] [place] [address] COLONOSCOPY FLEXIBLE PROXIMAL DIAGNOSTIC 07/11/2023 2:00 PM EDT Office Visit General Internal Medicine [address] [place] [address] [place] [address] Key Love MD [address] [place] [address] 02/05/2024 10:00 AM EST Office Visit Neurology [facility] [place] [address] [facility] [place] [address] Gayathri Roa MD [address] [place] [address] Scheduled Orders Name Type Priority Associated Diagnoses [...] - PCV) 06/16/2018 06/16/2017 COVID-19 Vaccine (3 season) 2022 06/29/2020, 06/01/2020 Influenza Vaccine (FLU [...] Additional history exists Lipid Panel 01/04/2028 01/03/2023, 040 06/2022, 12/24/2021, Additional history exists Hepatitis B [...] and were consensually agreed upon. Care Teams Director Treasurer Relationship Specialty Start Date End Date Key Love MD [address] [facility] [place] [place] [address] PCP - General Internal Medicine 11/19/19 documented as of this encounter
--- OUTSIDE RECORDS SUMMARY | 2023-03-15 16:24 | External Medical Summary | Summary of Care ---
Author Name Unknown Organization [facility] Address [address] [place] [address] Phone [phone] Care Team Providers Care Pillow Cleaner Name Role Phone Key Love MD Primary Care Provider [phone] Reason for Visit * Reason Onset Date Comments Appointment 01/04/2023 colonoscopy Encounter Details Date Type Department Care Team Description 01/04/2023 Telephone General Internal Medicine [facility] [address] [place] [address] Key Love MD [address] [place] [address] Appointment (colonoscopy) Allergies No known active allergiesdocumented as of this encounter (statuses as of 01/06/2023) Medications Medication Sig Dispensed Refills Start Date [...] by mouth in the morning. 0 Active Atorvastatin Calcium 20 MG Oral Tablet (Lipitor)Indication s:Dyslipidemia, goal LDL below 130 TAKE ONE TABLET BY MOUTH IN THE EVENING for cholesterol 90 Tablet 3 03/24/2022 Active Gabapentin 400 MG Oral Capsule (Neurontin) [...] for Constipation. 60 Capsule 11 01/03/2023 Active documented as of this encounter (statuses as of 01/06/2023) Active Problems Problem Noted Date BMI 28.0-28.9,adult 06/29/2022 Constipation 01/15/2020 Tobacco abuse 01/15/2020 Hyperlipidemia with target LDL less than 100 04/05/2018 Multiple sclerosis 08/03/2007 Current moderate episode of major depressive disorder without prior episode 01/17/2007 documented as of this encounter (statuses as of 01/06/2023) Resolved Problems Problem Noted Date Resolved Date Obesity, Class I, BMI 30.0-34.9 (see actual BMI) 04/05/2018 06/29/2022 Corticosteroid dependence 06/16/20162018 Family history of osteoporosis in mother 016 06/16/2017 FH: breast cancer in first degree relative 04/1306/16/2017 Overview: Sister Obesity, Class II, BMI 35-39.9, isolated (see ac tual BMI) 09/07/2009 04/05/2018 Overview: Per Obesity Protocol, #19 ADVANCE DIRECTIVE INFORMATION 10/17/2005 Overview: Pt accepted brochure. documented as of this encounter (statuses as of 01/06/2023) Immunizations Name Administration Dates Next Due COVID-19 [...] = 0.6 oz pur e alcohol) 2/month Alcohol Habits Answer Date Recorded How often do you have a drink containing alcohol ? Monthly or less 04/05/2018 How many drinks containing a lcohol do you have on a typical day when you are drinking? 1 or 2 04/05/2018 How often do you have six or more drinks on one occasion? Not asked Food Insecurity Answer Date Recorded Within the past 12 months, y ou worried that your food would run out before you got money to buy more. Never true 06/28/2022 Within the past 12 months, t he food you bought just didn't last and you didn't have money to get more. Never true 06/28/2022 Sex Assigned at Date Recorded Female 07/15/2020 9:05 AM E DT Job Start Date Occupation Industry Not on file Not on file Not on file documented as of this encounter Miscellaneous Notes * Telephone Encounter - LOLA Hayes - 01/06/2023 9:48 AM EDT Pt has colonoscopy scheduled on 05/04 01/06 JAT * Telephone Encounter - LOLA Hayes - 01/04/2023 4:08 PM EDT LMOM re: colo ref 01/04 JAT * Telephone Encounter - LOLA Vail - 01/04/2023 9:54 AM EDT Order placed 01/03, please advise on scheduling. * Telephone Encounter - LOLA Vail - 01/04/2023 9:54 AM EDT OUTPATIENT REFERRAL REQUEST COLONOSCOPY, GI REFERRAL OP Name: Christa Wade Birthdate: 1960 Patient's Address: [address] [place] [phone] Home: Work: Patient Preference: Referral ID: [id number] Referred To: COLONOSCOPY, GI REFERRAL OP Dietary Aide Teacher: Provider Specialty: Gastroenterology Priority: Within 30 days (routine) Visit Coverage: MEDICARE A AND B Primary Payor: MEDICARE Appointment Info: Date: Time: Referral Type: Ancillary Services [] Expiration Date: Number of Visits Requested: 999 Associated Diagnosis: Adenomatous polyp of colon, unspecified part of colon (D12.6) Problem/Desired Service from Dietary Aide Teacher: ALERT: Do not order for pediatric patients (18 years or younger). Cancel off screen and order PEDS GASTROENTEROLOGY CONSULT (Type: 1 visit only-Evaluate and Treat) The following Pt. Instructions are available: - Gastro Colonoscopy Prep Instructions [85061] - Gastro Colonoscopy Prep Instructions (Bangladeshi Version) [[id number]] Go to the Pt. Instructions section within the Visit Navigator to access. Colonoscopy ASGE Guidelines: Postadenoma resection: 3-10 adenomas or adenoma with villous features, greater than or equal 1 cm, or with high-grade dysplasia (3 yr intervals) ADDITIONAL INFORMATION 1. Is the patient on Coumadin? No 2. Is the patient on Pradaxa? No Order Specific Questions: Referral Priority: Within 30 days (routine) Where should this appointment be scheduled? [facility] documented in this encounter Plan of Treatment Upcoming Encounters Date Type Specialty Care Team Description 01/24/2023 Imaging Radiology 02/06/2023 Office Visit Neurology Esc, Gayathri Marshall MD [address] [place] [address] 05/04/2023 Hospital Encounter Endoscopy Tory He, DO [address] [place] [address] 05/04/2023 Surgery Endoscopy Tory He, DO [address] [place] [address] COLONOSCOPY FLEXIBLE PROXIMAL DIAGNOSTIC 07/11/2023 Office Visit Internal Medicine Key Love MD [address] [place] [address] Scheduled Procedures Name Priority Associated Diagnoses Date/Ti me COLONOSCOPY FLEXIBLE PROXIMAL DIAGNOSTIC Recall Adenomatous polyp of colon, unspecified part of colon 05/04/2023 12:45 PM EST COLONOSCOPY FLEXIBLE PROXIMAL DIAGNOSTIC Recall History of colon polyps Health Maintenance Due Date Last Done Comments HIV Screening 1976 HPV/Co-Test 1991 Zoster Vaccines (1 of 2) 2011 Pneumococcal Vaccine: Pediatrics (0 to 5 Years) and At-Risk Patients (6 to 64 Years) (2 - PCV) 06/16/2018 06/16/2017 Mammogram 08/10/2022 08/10/2021, 03/0 10/2020, 07/03/2018, Additional history exists COVID-19 Vaccine (3 - 2022- season) 2022 06/29/2020, 06/01/2020 Influenza Vaccine (FLU shot) (#1) 2022 01/15/2020, 04/13/2015, 01/08/2014, Additional history exists COLONOSCOPY-EVERY 3 YRS AGES 18-100 01/06/2023 01/07/2020, 01/07/2020, 06/25/2014, Additional history exists Cervical Cancer Screening 01/14/2023 Pap Smear 01/14/2023 01/15/2020, 07/27, 08/23/2016, Additional history exists DTaP,Tdap,and Td Vaccines (2 - Td or Tdap) 04/08/2023 04/08/2013, 11/23/2001 Depression Screening 06/29/2023 06/28/2022 Diabetes Screening 01/03/2026 01/03/2023, 0 06/28/2022, 12/24/2021, Additional history exists Lipid Panel 01/04/2028 01/03/2023, 04/0 06/2022, 12/24/2021, Additional history exists Hepatitis B [...] Not on filedocumented as of this encounter Advance Directives Latest Code Status on File Code Status Date Activated Date Inactivated Comments Full Code 06/30/2020 9:06 AM 06/30/2020 2:17 PM This or gabi reflects the patients wishes and were consensually agreed upon. Care Teams Pillow Cleaner Relationship Specialty Start Date End Date Key Love MD [address] [facility] [place] [address] PCP - General Internal Medicine 11/19/19 documented as of this encounter
--- OUTSIDE RECORDS SUMMARY | 2023-03-15 16:24 | External Medical Summary | Summary of Care ---
Author Name Unknown Organization [facility] Address [address] [place] [address] Phone [phone] Care Team Providers Care Nuclear Equipment Test Engineer Name Role Phone Key Love MD Primary Care Provider [phone] Reason for Referral * Precert (Within 10 days (routine)) - Authorized Specialty Diagnoses / Procedures Referred By Contac t Referred To Contact Radiology Diagnoses MS (multiple sclerosis) (HCC) Procedures MRI T SPINE W WO CONTRAST Gayathri Roa MD [address] [place] [address] Referral ID Status Reason Start Date Expiration Date V isits Requested Visits Authorized [id number] Authorized 02/20/2023 999 999 * Precert (Within 10 days (routine)) - Authorized Specialty Diagnoses / Procedures Referred By Contac t Referred To Contact Radiology Diagnoses MS (multiple sclerosis) (HCC) Procedures MRI C SPINE W WO CONTRAST Gayathri Roa MD [address] [place] [address] Referral ID Status Reason Start Date Expiration Date V isits Requested Visits Authorized [id number] Authorized 02/20/2023 999 999 * Precert (Within 10 days (routine)) - Authorized Specialty Diagnoses / Procedures Referred By Contac t Referred To Contact Radiology Diagnoses MS (multiple sclerosis) (HCC) Procedures MRI BRAIN W WO CONTRAST Gayathri Roa MD [address] [place] [address] Referral ID Status Reason Start Date Expiration Date V isits Requested Visits Authorized [id number] Authorized 02/20/2023 999 999 Reason for Visit * Reason Onset Date Comments Advice 02/20/2023 Encounter Details Date Type Department Care Team ([facility] Contact Info) Description 02/20/2023 Telephone Neurology, [place] [address] [place] [address] Specified, Zz No Resource [address] [place] [address] Advice Allergies No known active [...] Patient is currently visiting her daughter in [place] for a few more days. Ysabel did [...] patient her MRI's when she returns to [place]. * Addendum Note - Gayathri Roa MD [...] thanked me. Please call patient back at [phone] documented in this encounter Plan of Treatment Upcoming Encounters Date Type Department Care Team (Latest Contact Info) Description 02/27/2023 11:15 AM EST Office Visit Orthopaedics [facility] [address] [place] [address] Michael Melgoza DO [address] [place] [address] 05/04/2023 1:00 PM EST Hospital Encounter ENDO [facility]SS[facility], Endoscopy Room OSS [address] [place] [phone] Tory He, DO [address] [place] [address] 05/04/2023 1:00 PM EST - 05/04/2023 1:30 PM EST Surgery ENDO [facility], Endoscopy Room [facility] [address] [place] [address] Tory He, DO [address] [place] [address] COLONOSCOPY FLEXIBLE PROXIMAL DIAGNOSTIC 07/11/2023 2:00 PM EDT Office Visit General Internal Medicine [facility] [place] [address] [place] [address] Key Love MD [address] [facility] [place] [address] 02/05/2024 10:00 AM EST Office Visit Neurology [facility] [address] [place] [address] Gayathri Roa MD [address] [place] [address] Scheduled Orders Name Type Priority [...] and were consensually agreed upon. Care Teams Nuclear Equipment Test Engineer Relationship Specialty Start Date End Date Key Love MD [address] [place] [address] PCP - General Internal Medicine 11/19/19 documented as of this encounter
--- OUTSIDE RECORDS SUMMARY | 2023-03-15 16:24 | External Medical Summary | Summary of Care ---
Author Name Unknown Organization [facility] Address [address] [place] [address] Phone [phone] Care Team Providers Care Cardboard Cutter Name Role Phone Key Love MD Primary Care Provider [phone] Encounter Details Date Type Department Care Team ([facility] st Contact Info) Description 02/14/2023 Patient Reported Data Patient Survey Ortho OBERD Allergies No known active allergiesdocumented as of this encounter (statuses as of 02/14/2023) Medications Medication Sig Dispensed Refills Start Date [...] as of this encounter (statuses as of 02/14/2023) Active Problems Problem Noted Date Diagnosed Date BMI 28.0-28.9,adult 06/29/2022 Constipation 01/15/2020 Tobacco abuse 01/15/2020 Hyperlipidemia with target LDL less than 100 12/2018 Multiple sclerosis 08/03/2007 Current moderate episode of major depressive disorder without prior episode 01/17/2007 documented as of this encounter (statuses as of 02/14/2023) Resolved Problems Problem Noted Date Diagnosed Date [...] as of this encounter (statuses as of 02/14/2023) Immunizations Name Administration Dates Next Due COVID-19 mRNA, LNP-s, No Pre serve, 2-Dose Series (Moderna) 06/29/2020,06/01/2020 Pneumococcal Polysaccharide PPV23 (Pneumovax) SEASONAL INFLUENZA, PF, 6 M & Above, IM , (FLULAVAL or FLUZONE) 01/15/2020 Season Influenza, Cell Culte r, 18+ Yrs, With Preserv (Flucelvax) 04/08/2013 Seasonal Influenza, Quadrivalent, No Preserve, I M 04/13/2015 Seasonal Influenza, Split, IIV3, With Preserve, Inj 01/08/2014 TDAP (age 10 and older)(Boostrix) 04/08/2013 documented [...] on file documented as of this encounter Plan of Treatment Upcoming Encounters Date Type Department Care Team (Latest Contact Info) Description 02/27/2023 11:15 AM EST Office Visit Orthopaedics [facility] [address] [place] [address] Michael Melgoza, DO [address] [place] [address] 05/04/2023 1:00 PM EST Hospital Encounter ENDO [facility], Endoscopy Room [facility] [address] [place] [phone] Tory He, DO [address] [place] [address] 05/04/2023 1:00 PM EST - 05/04/2023 1:30 PM EST Surgery ENDO [facility], Endoscopy Room [facility] [address] [place] [address] Tory He DO [address] [place] [address] COLONOSCOPY FLEXIBLE PROXIMAL DIAGNOSTIC 07/11/2023 2:00 PM EDT Office Visit General Internal Medicine [facility] [address] [facility] [place] [address] Key Love MD [address] [place] [address] 02/05/2024 10:00 AM EST Office Visit Neurology [facility] [place] [address] [facility] [place] [address] Gayathri Roa MD [address] [place] [address] Scheduled Procedures Name Priority Associated Diagnoses Date/Ti [...] PCV) 06/16/2018 06/16/2017 COVID-19 Vaccine (3 - 2022-24 season) 2022 06/29/2020, 06/01/2020 Influenza Vaccine (FLU [...] Additional history exists Lipid Panel 01/04/2028 01/03/2023, 0406/2022, 12/24/2021, Additional history exists Hepatitis B Completed [...] and were consensually agreed upon. Care Teams Cardboard Cutter Relationship Specialty Start Date End Date Key Love MD [address] [facility] [place] [address] PCP - General Internal Medicine 11/19/19 documented as of this encounter
--- OUTSIDE RECORDS SUMMARY | 2023-03-15 16:24 | External Medical Summary | Summary of Care ---
Author Name Unknown Organization [facility] Address [address] [place] [address] Phone [phone] Care Team Providers Care District Sales Representative Name Role Phone Key Love MD Primary Care Provider [phone] Reason for Visit * Reason Comments Outpatient Testing Encounter Details Date Type Department Care Team Description 01/03/[address] [facility] [address] [place] [id number] [facility] [address] [place] [address] Encounter for long-term (current) use of other medications*; Major depressive disorder, recurrent episode, in full remission (HCC); Hyperlipidemia with target LDL less than 100; Current moderate episode of major depressive disorder without prior episode (HCC) Allergies No known active allergiesdocumented as of this encounter (statuses as of 01/03/2023) Medications Medication Sig Dispensed Refills Start Date [...] as of this encounter (statuses as of 01/03/2023) Active Problems Problem Noted Date BMI 28.0-28.9,adult 06/29/2022 Constipation 01/15/2020 Tobacco abuse 01/15/2020 Hyperlipidemia with target LDL less than 100 04/05/2018 Multiple sclerosis 08/03/2007 Current moderate episode of major depressive disorder without prior episode 01/17/2007 documented as of this encounter (statuses as of 01/03/2023) Resolved Problems Problem Noted Date Resolved Date [...] as of this encounter (statuses as of 01/03/2023) Immunizations Name Administration Dates Next Due COVID-19 [...] 01/24/2023 Imaging Radiology 02/06[facility]23 [facility] [address] [facility] [address] 07/11/2023 Office Visit Internal Medicine Key Love MD [address] [place] [address] Pending Results Name Type Priority Associated Diagnoses Date /Time T4, TOTAL Lab Routine Major depressive disorder, recurrent episode, in full remission (HCC) 01/03/2023 3:02 PM EDT T3 UPTAKE Lab Routine Major depressive disorder, recurrent episode, in full remission (HCC) 01/03/2023 3:02 PM EDT COMPREHENSIVE METABOLIC PANEL Lab Routine Hyperlipidemia with target LDL less than 100 01/03/2023 3:02 PM EDT LIPID PANEL WITH DIRECT LDL IF TG IS HIGH Lab Routine Hyperlipidemia with target LDL less than 100 01/03/2023 3:02 PM EDT TSH Lab Routine Current moderate episode of major depressive disorder without prior episode (HCC) 01/03/2023 3:02 PM EDT T3, FREE Lab Routine Current moderate episode of major depressive disorder without prior episode (HCC) 01/03/2023 3:02 PM EDT Scheduled Orders Name Type Priority Associated Diagnoses Orde r Schedule T4, TOTAL Lab Routine Major depressive disorder, recurrent episode, in full remission (HCC) Expected: 01/03/2023, Expires: 01/04/2024 T3 UPTAKE Lab Routine Major depressive disorder, recurrent episode, in full remission (HCC) Expected: 01/03/2023, Expires: 01/04/2024 Scheduled Procedures Name Priority Associated Diagnoses Date/Ti me COLONOSCOPY FLEXIBLE PROXIMAL DIAGNOSTIC Recall History of colon polyps Health Maintenance Due Date Last Done Comments HIV Screening 1976 Zoster Vaccines (1 of 2) 1980 HPV/Co-Test 1991 Pneumococcal Vaccine: Pediatrics (0 to 5 Years) and At-Risk Patients (6 to 64 Years) (2 - PCV) 06/16/2018 06/16/2017 COVID-19 Vaccine (3 - Moderna risk series) 07/27/2020 06/29/2020, 06/01/2020 Mammogram 08/10/2022 08/10/2021, 03/0 10/2020, 07/03/2018, Additional history exists Influenza Vaccine (FLU shot) (#1) 2022 01/15/2020, 04/13/2015, 01/08/2014, Additional history exists COLONOSCOPY-EVERY 3 YRS AGES 18-100 01/06/2023 01/07/2020, 01/07/2020, 06/25/2014, Additional history exists Cervical Cancer Screening 01/14/2023 Pap Smear 01/14/2023 01/15/2020, 07/27, 08/23/2016, Additional history exists DTaP,Tdap,and Td Vaccines (2 - Td or Tdap) 04/08/2023 04/08/2013, 11/23/2001 Depression Screening 06/29/2023 06/28/2022 Diabetes Screening 06/28/2025 06/28/2022, 0 12/24/2021, 10/14/2020, Additional history exists Lipid Panel 06/29/2027 06/28/2022, 11/27, 10/14/2020, Additional history exists Hepatitis B Completed 05/28/2002, [...] as of this encounter Visit Diagnoses Diagnosis Encounter for long-term (current) use of other medications- Primary Major depressive disorder, recurrent episode, in full remission (HCC) Major depressive disorder, recurrent episode, in full remission Hyperlipidemia with target LDL less than 100 Other and unspecified hyperlipidemia Current moderate episode of major depressive disorder without prior episode (HCC) documented in this encounter Advance Directives Latest Code Status on File Code Status Date Activated Date Inactivated Comments Full Code 06/30/2020 9:06 AM 06/30/2020 2:17 PM This or gabi reflects the patients wishes and were consensually agreed upon. Care Teams District Sales Representative Relationship Specialty Start Date End Date Key Love MD [address] [facility] [facility] [address] [facility] [place] [address] PCP - General Internal Medicine 11/19/19 documented as of this encounter
--- OUTSIDE RECORDS SUMMARY | 2023-03-15 16:24 | External Medical Summary | Summary of Care ---
Author Name Unknown Organization [facility] Address [address] [place] [address] Phone [phone] Care Team Providers Care Residential Director Name Role Phone Key Love MD Primary Care Provider [phone] Encounter Details Date Type Department Care Team ([facility] st Contact Info) Description 02/14/2023 Patient [...] 02/27/2023 11:15 AM EST Office Visit Orthopaedics [facility] [address] [place] [address] Michael Melgoza, DO [address] [place] [address] 05/04/2023 1:00 PM EST Hospital Encounter ENDO [facility], Endoscopy Room [facility] [address] [place] [id number] Tory He, DO [address] [place] [address] 05/04/2023 1:00 PM EST - 05/04/2023 1:30 PM EST Surgery ENDO [facility], Endoscopy Room [facility] [address] [place] [address] Tory He DO [address] [place] [address] COLONOSCOPY FLEXIBLE PROXIMAL DIAGNOSTIC 07/11/2023 2:00 PM EDT Office Visit General Internal Medicine [facility] [address] [facility] [place] [address] Key Love MD [address] [place] [address] 02/05/2024 10:00 AM EST Office Visit Neurology [facility] [place] [address] [facility] [place] [address] Gayathri Roa MD [address] [place] [address] Scheduled Procedures Name Priority Associated [...] and were consensually agreed upon. Care Teams Residential Director Relationship Specialty Start Date End Date Key Love MD [address] [place] [address] PCP - General Internal Medicine 11/19/19 documented as of this encounter
--- OUTSIDE RECORDS SUMMARY | 2023-03-15 16:24 | External Medical Summary | Summary of Care ---
Author Name Unknown Organization [facility] Address [address] [place] [address] Phone [phone] Care Team Providers Care Scada Engineer Name Role Phone Key Love MD Primary Care Provider [phone] Reason for Visit * Reason Onset Date Comments Appointment 01/04/2023 colonoscopy Encounter Details Date Type Department Care Team Description 01/04/2023 Telephone General Internal Medicine [facility] [address] [place] [address] Key Love MD [address] [place] [address] Appointment (colonoscopy) Allergies No known active allergiesdocumented as of this encounter (statuses as of 01/04/2023) Medications Medication Sig Dispensed Refills Start Date [...] as of this encounter (statuses as of 01/04/2023) Active Problems Problem Noted Date BMI 28.0-28.9,adult 06/29/2022 Constipation 01/15/2020 Tobacco abuse 01/15/2020 Hyperlipidemia with target LDL less than 100 04/05/2018 Multiple sclerosis 08/03/2007 Current moderate episode of major depressive disorder without prior episode 01/17/2007 documented as of this encounter (statuses as of 01/04/2023) Resolved Problems Problem Noted Date Resolved Date [...] as of this encounter (statuses as of 01/04/2023) Immunizations Name Administration Dates Next Due COVID-19 [...] Name: Christa Wade Birthdate: 1960 Patient's Address: [address] [place] [id number] Home: Work: Patient Preference: Referral ID: [id number] Referred To: COLONOSCOPY, GI REFERRAL OP Janitorial Cleaner: Provider Specialty: Gastroenterology Priority: Within 30 days (routine) Visit Coverage: MEDICARE A AND B Primary Payor: MEDICARE Appointment Info: Date: Time: Referral Type: Ancillary Services [] Expiration Date: Number of Visits Requested: 999 Associated Diagnosis: Adenomatous polyp of colon, unspecified part of colon (D12.6) Problem/Desired Service from Janitorial Cleaner: ALERT: Do not order for pediatric patients (18 years or younger). Cancel off screen and order PEDS GASTROENTEROLOGY CONSULT (Type: 1 visit only-Evaluate and Treat) The following Pt. Instructions are available: - Gastro Colonoscopy Prep Instructions [49827] - Gastro Colonoscopy Prep Instructions (Yi Version) [36825] Go to the Pt. Instructions section within [...] (routine) Where should this appointment be scheduled? [facility] documented in this encounter Plan of Treatment Upcoming Encounters Date Type Specialty Care Team Description 01/24/2023 Imaging Radiology 02/06/2023 Office Visit Neurology [facility], Gayathri Marshall MD [address] [facility] [place] [address] 05/04/2023 Hospital Encounter Endoscopy Tory He DO [address] [place] [address] 05/04/2023 Surgery Endoscopy Tory He, DO [address] [place] [address] COLONOSCOPY FLEXIBLE PROXIMAL DIAGNOSTIC 07/11/2023 Office Visit Internal Medicine Key Love MD [address] [place] [facility] [address] Scheduled Procedures Name Priority Associated Diagnoses Date/Ti [...] - PCV) 06/16/2018 06/16/2017 Mammogram 08/10/2022 08/10/2021, 03/10/2020, 07/03/2018, Additional history exists COVID-19 Vaccine (3 [...] and were consensually agreed upon. Care Teams Scada Engineer Relationship Specialty Start Date End Date Key Love MD [address] [place] [address] PCP - General Internal Medicine 11/19/19 documented as of this encounter
--- OUTSIDE RECORDS SUMMARY | 2023-03-15 16:24 | External Medical Summary | Summary of Care ---
Author Name Unknown Organization [facility] Address [address] [place] [address] Phone [phone] Care Team Providers Care Lute Packer Or Applier Name Role Phone Key Love MD Primary Care Provider [phone] Reason for Visit * Reason Comments Follow Up Encounter Details Date Type Department Care Team ([facility] st Contact Info) Description 02/06/2023 2:20 PM EST Office Visit Neurology [facility] [address], [place] [id number] Gayathri Roa MD [address] [place] [address] MS (multiple sclerosis) ([facility])*; Cubital tunnel syndrome on right; Neuropathic pain Allergies No known active allergiesdocumented as of this encounter (statuses as of 02/06/2023) Medications Medication Sig Dispensed Refills Start Date [...] as of this encounter (statuses as of 02/06/2023) Active Problems Problem Noted Date Diagnosed Date BMI 28.0-28.9,adult 06/29/2022 Constipation 01/15/2020 Tobacco abuse 01/15/2020 Hyperlipidemia with target LDL less than 100 12/2018 Multiple sclerosis 08/03/2007 Current moderate episode of major depressive disorder without prior episode 01/17/2007 documented as of this encounter (statuses as of 02/06/2023) Resolved Problems Problem Noted Date Diagnosed Date [...] as of this encounter (statuses as of 02/06/2023) Immunizations Name Administration Dates Next Due COVID-19 [...] on file documented as of this encounter Last Filed Vital Signs Vital Sign Reading Time Taken Comments Blood Pressure 120/74 02/06/2023 2:21 PM EST Pulse 78 02/06/2023 2:21 PM EST Temperature 36.8 C (98.3 F) 02/06/2023 2:21 PM ES T Respiratory Rate 16 02/06/2023 2:21 PM EST Oxygen Saturation 98% 02/06/2023 2:21 PM EST Inhaled Oxygen Concentration - - Weight 76.3 kg (168 lb 4.8 oz) 02/06/2023 2:21 P M EST Height - - Body Mass Index 29.81 01/03/2023 2:09 PM EDT documented in this encounter Progress Notes * Gayathri Roa MD - 02/06/2023 2:50 PM EST NEUR[facility]Y [facility] Ref: KAYODE DALTON[[id number]] [address] [place] [address] (office) [phone] (fax) PCP: PILAR COSTA [address] [place] [address] [place] [address] [phone] History Obtained From: Patient Chief Complaint Patient presents with Follow Up History of Present Illness: Christa Wade is a 62 year old right handed female with a history of multiple sclerosis, osteoporosis, depression, hyperlipidemia, following up for her diagnosis of multiple sclerosis, mild secondary progressive. Last Office/Telemedicine Visit: 11/04/2019 (in office), 01/25/2021 (telemedicine) At that time we reviewed her diagnosis of MS and the treatments she had received in the past, including Copaxone, Tysabri, Avonex, and IVSM monthly x6 years. We reviewed at that time that the monthlyIVSM was unlikely to be doing anything to prevent her MS from progressing, and that I would be concerned for her risk of osteoporosis, diabetes, infections if she continues this. She discontinued it a fter that visit. From an MS perspective, since discontinuing the steroids, she feels 100% better just monitoring her lifestyle changes. Staying active - working 2-3 days a week, 5 hours a day. No heat flares in the summer! From an MS perspective, since discontinuing the steroids, she feels 100% better just monitoring herweight. She had a flu about 2 weeks ago, and has been having a flare in symptoms in the right C8 distribution, but also in right lateral leg, similar to prior MS flares. Does not feel she is fully recovered from flu symptoms, and grandson who lives at home with her is also still sick. No NEW symptoms. She still takes the gabapentin and cymbalta for neuropathic pain. Still taking her Cytomel for the thyroid. She does take klonopin occasionally at night to help sleep. The patient denies any new or worsening neurological dysfunction lasting >24 hours that would constitute a relapse, including no vision changes, weakness, sensory changes, gait abnormalities, bowel or bladder incontinence or retention, dizziness or imbalance. MS History: Initial Symptoms Onset (year and quality): 2004: ocular migraines, non-specific MRI 2005: limb (hand/feet) paresthesias with bladder concerns - MRIs spinal cord + lesions, MRIs brain new lesions, started Copaxone 2008: over the 3 years she had various worsening of hemisensory and motor deficits, with significant depression. Was unclear if these were clinical relapses but she did develop new lesions on MRI. Transitioned to Tysabri 01/2009: JCV positive. Tysabri discontinued 11/2011: left optic neuritis clinically and on MRI; also gait disturbance. Started Avonex in late 2011, stopped after 6mos 2013-10/2019: monthly IVSM, overall clinically stable. Stopped Monthly IVSM after visit in 10/2019 Initial Diagnosis (year):2005 MRI Brain: 03/2020: stable, no new lesions 04/2019: since 2011, a new left frontal, non-enhancing periventricular lesion has developed 11/2011: left optic nerve enhancement, otherwise stable 05/2011: stable MRI C-Spine: 03/2020: stable, no new lesions 04/2019: stable dens, C2-3, C4-5 lesions, c/w demyelinating disease, nothing new since 03/2018: stable 03/2013: stable 05/2011: stable MRI T-spine: 2008: T7-8 CSF results: NA ARSENIO Virus: 04/2011: positive; no titer ("low level reactivity") NMO: Serum Mimics: Sjogren's: Lupus: RA: HIV: Lyme: Prior DMT: Copaxone [id number] with monthly solumedrol for about 12 months, Tysabri 1308-0045, Avonex [id number] (6 mos), monthly solumedrol 04/20131434-7927. Developed cataracts and osteoporosis. Current DMT: None An extensive overview of current MS symptoms was completed. Vision is left optic neuritis in past; received IVSM. There is no color desaturation, no diplopia, no blurred or obscured vision; can feel some difference between eyes. She does need an eye visit - ?cataracts Motor features: more on right side, but subtle, occasional foot drop right Spasticity: some on right Pain: neuropathic, some myalgias on right Sensory features: parasthesias right arm - gabapentin helps Ambulation/Gait: normal, sways to the right Falls: denies in the past six months. Estimates can walk >500m with no assistance. Coordination features: yes, balance issues Speech/Language/Swallow: no concerns Bowel and bladder functioning: bowels - constipation seems to be really bad - going to try flax seeds; some hesitancy; OAB Cognition: good Mood: good Fatigue: mild at end of day Sleep: intermittent, pain r/t neuropathic pain Uhthoffs: yes Lhermitte's: denies MS Jayleng: denies Rheumatologic symptoms review: Patient denies: skin rashes or lesions, hair thinning, weight gain, dry eyes/mouth/genitals (Sicca syndrome), difficulties with breathing/wheezing, heart palpitations or chest pain, painful or swollen joints, muscle aches, GI upset, diarrhea, constipation, insensitivity to food. 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 Multiple Sclerosis: Denies +B12 deficiency, hypothyroid, IDDM REVIEW OF SYSTEMS: All other 14 systems have been reviewed and were negative except as per the HPI. Current Outpatient Medications: Current Outpatient Medications Medication Sig Dispense Refill [...] mouth in the morning. 90 Tablet 3 No current facility-administered medications for this visit. Allergies: Review of patient's allergies indicates: No Known Allergies Medical History: Past Medical History: Diagnosis Date Corticosteroid dependence (HCC) 06/16/2016 Depression 01/17/2007 Family history of osteoporosis in mother 04/13/2015 Hyperlipidemia Multiple sclerosis (HCC) since age 41 Surgical History: Past Surgical History: Procedure Laterality Date COLONOSCOPY, DIAGNOSTIC (RECTUM) 05/09/2013 COLONOSCOPY FLEXIBLE PROXIMAL DIAGNOSTIC performed by Tory He DO at ENDOSCOPY [facility] COLONOSCOPY, DIAGNOSTIC (RECTUM) 06/25/2014 Moderate diverticulosis, 5 yr repeat/COLONOSCOPY FLEXIBLE PROXIMAL DIAGNOSTIC performed by Tory Kay DO at ENDOSCOPY [facility] COLONOSCOPY, DIAGNOSTIC (RECTUM) 01/07/2020 adenomatous & serrated adenomatous polyp, diverticulosis, repeat 3 yrs / COLONOSCOPY FLEXIBLE PROXIMAL DIAGNOSTIC performed by Tory He DO at ENDOSCOPY [facility] EGD, FLEXIBLE, DIAGNOSTIC 05/13/2020 inflammatory changes on bx / ESOPHAGOGASTRODUODENOSCOPY (EGD), FLEXIBLE, TRANSORAL, DIAGNOSTIC performed by Tory He DO at ENDOSCOPY [facility] EGD, W/ENDOSCOPIC US 05/13/2020 GB polyps & sludge / ESOPHAGOGASTRODUODENOSCOPY (EGD), FLEXIBLE, TRANSORAL, ENDOSCOPIC ULTRASOUND performed by Tory He DO at ENDOSCOPY [facility] HYSTEROSCOPY;ENDOMETRIAL ABLAT 06/27/2013 HYSTEROSCOPY ENDOMETRIAL ABLATION performed by Holly Verde DO at [facility] HYSTEROSCOPY;ENDOMETRIAL ABLAT 09/05/2013 HYSTEROSCOPY ENDOMETRIAL ABLATION performed by Holly Verde DO at [facility] IMPACT TOOTH REMOV PART BONY age 23 wisdom teeth LAPAROSCOPY; CHOLECYSTECTOMY N/A 06/30/2020 LAPAROSCOPIC CHOLECYSTECTOMY performed by Anish Black MD at [facility] LUMBAR SPINE FUSION W/BONE GRAFT 08/2015 L4-5 fusion- Dr. Wang REMOVAL OF TONSILS, AGE 12+ age 13 TYMPANOSTOMY TUBES Bilateral 2017 Social History: Social History Socioeconomic History Marital status: Spouse name: Rolando Number of children: 2 Years of education: Not on file Highest education level: Not on file Occupational History Not on file Tobacco Use Smoking status: Every Day Packs/day: .5 Types: Cigarettes Smokeless tobacco: Never Tobacco comments: 10 cigarettes Vaping Use Vaping Use: Former Substance and Sexual Activity Alcohol use: Yes Comment: 2/month Drug use: No Sexual activity: Not Currently Partners: Male Other Topics Concern Not on file Social History Narrative ; 2 healthy children; designs thony Social Determinants of Health Financial Resource Strain: Not on file Food Insecurity: No Food Insecurity (06/28/2022) Hunger Vital Sign Worried About Running Out of Food in the Last Year: Never true Ran Out of Food in the Last Year: Never true Transportation Needs: Not on file Physical Activity: Not on file Stress: Not on file Social Connections: Not on file Intimate Partner Violence: Not on file Housing Stability: Not on file Family History: Family History Problem Relation Age of Onset Renal Hx Father renal insufficiency- on dialysis Cancer Father Renal cancer Heart Disorder Father 46 [place] trhen Afib - implantable defibrillator Blood Disorder Mother age 70- Pernicious anemia Diabetes Mother Type 1 Musculo-skeletal Disorder Mother osteoporosis in her 80's No Past Hx Brother No Past Hx Sister No Past Hx Sister No Past Hx Sister Ovarian cancer Grandmother (Paternal) 60 Breast Cancer Grandmother (Paternal) Breast Cancer Sister 60 PHYSICAL EXAMINATION BP 120/74 | Pulse 78 | Temp 36.8 C (98.3 F) (Tympanic) | Resp 16 | Wt 76.3 kg (168 lb 4.8 oz) |LMP 09/24/2013 | SpO2 98% | BMI 29.81 kg/m | BSA 1.84 m Exam: Constitutional: Appears normally developed, well nourished, non-obese, no deformities and well groomed Head and face: normocephalic and atraumatic Eyes: normal lids, normal sclera, normal conjunctiva. Neck: supple, symmetrical and thyroid normal Respiratory: normal effort Cardiovascular: RRR, no edema or swelling Abdomen: no masses noted, soft and no pain upon palpation Skin: No rashes, lesions, or ulcers Psychiatric: normal judgement and insight, normal mood and normal affect NEUROLOGIC EXAMINATION: Appearance: No Acute Distress Orientation: Awake, Alert, and Oriented x 3 Mental status: Memory: Recent and Remote memory intact. Attention: Normal Knowledge: Normal fund for age and education Language: No aphasia - naming and repetition intact Speech: No dysarthria Funduscopic exam: No evidence of disk pallor bilaterally - crisp margins; no hemorrhage or exudates. Venous pulsations normal. Cranial Nerves: 2 No Visual Defect on Confrontation; Pupils round, equal, reactive to light 3,4,6 Extraocular Movements Intact; no nystagmus 5 Facial Sensation Intact 7 No facial asymmetry 8 Intact hearing 9,10 Palate symmetric, normal gag 11 Good shoulder shrug 12 Tongue Midline Coordination: No ataxia with finger to nose testing, normal FFM, mild reduced FNF ataxia Sensory: Intact, Symmetric to Light Touch, Vibration mildly reduced right; PP normal POSITIVE TINEL'S OVER RIGHT CUBITAL TUNNEL Muscle exam Muscle Tone: Normal. No atrophy. Arm Right Left Leg Right Left Deltoid 5/5 5/5 Iliopsoas 4+/5 5/5 Biceps 5/5 5/5 Quads 5/5 5/5 Triceps 5/5 5/5 Hamstrings 4+/5 5/5 Wrist Extension 5/5 5/5 Ankle Dorsi Flexion 5-/5 5/5 Wrist Flexion 5/5 5/5 Ankle Plantar Flexion 5/5 5/5 Interossei 5/5 5/5 Abductor Pollicis Brevis 5/5 5/5 Reflexes Brachioradialis Jerk Biceps Jerk Triceps Jerk Knee Jerk Ankle Jerk Plantars Michaels's Right 2+ 2+ 2+ 2++ 2+ mute Not present Left 2+ 2+ 2+ 2++ 2+ mute Not present Gait: Stable, No ataxia,Casual gait is with mild right circumductive gait but mostly normal. Heel and toe walk are performed with difficulty on the right. Tandem is with difficulty. Romberg is negative Review of prior Labs: Results for orders placed or performed in visit on 01/03/23 COMPREHENSIVE METABOLIC PANEL Result Value Ref Range BUN 12 6 - 20 mg/dL Creatinine 0.8 0.5 - 1.0 mg/dL Estimated Glomerular Filtration Rate 85 >=60 mL/min Sodium 140 135 - 146 mmol/L Potassium 4.5 3.5 - 5.1 mmol/L Chloride 104 98 - 107 mmol/L CO2 26 22 - 32 mmol/L Anion Gap 10 7 - 15 mmol/L Glucose 75 70 - 120 mg/dL Albumin 4.5 3.8 - 5.0 g/dL AST 16 10 - 35 U/L Alkaline Phosphatase 87 35 - 130 U/L Bilirubin, Total 0.7 <=1.2 mg/dL Calcium 10.1 8.4 - 10.2 mg/dL Protein 6.8 6.0 - 8.3 g/dL ALT 10 10 - 35 U/L LIPID PANEL WITH DIRECT LDL IF TG IS HIGH Result Value Ref Range Triglycerides 174 <=174 mg/dL Cholesterol 243 (H) <200 mg/dL HDL Cholesterol 57 >49 mg/dL Non-HDL Cholesterol 186 (H) <=159 mg/dL LDL Cholesterol 151 (H) <=129 mg/dL TSH Result Value Ref Range TSH 1.25 0.27 - 4.20 uIU/mL T3, FREE Result Value Ref Range T3, Free 2.5 2.5 - 4.3 pg/mL T4, TOTAL Result Value Ref Range T4, Total 7.1 4.6 - 12.0 ug/dL T3 UPTAKE Result Value Ref Range T3 Uptake 28 22 - 35 % I have reviewed the following Radiology Studies and noted significant findings as follows: Reports from imaging in "imaging tabs" reviewed; my interpretations are followed. MRI Brain and Cervical Spine 03/2020: BRAIN: 1. Overall, stable burden of cerebral white matter demyelinating plaques. 2. No new lesions or abnormal enhancement suspicious for active demyelination. CERVICAL SPINE: 1. Stable foci of intramedullary T2 hyperintensity in the cervical cord compatible with chronic demyelinating plaques. 2. No new spinal cord lesions or abnormal enhancement suspicious for active demyelination. 3. Additional chronic findings as above. I personally reviewed the following images. My findings and interpretations are as follows: MRI Brain: 03/2020: stable 04/2019: since 2011, a new left frontal, non-enhancing periventricular lesion has developed 11/2011: left optic nerve enhancement, otherwise stable 05/2011: stable MRI C-Spine: 03/2020: stable 04/2019: stable dens, C2-3, C4-5 lesions, c/w demyelinating disease, nothing new since 2019 03/2018: stable 03/2013: stable 05/2011: stable MRI T-spine: 2008: T7-8 Impression: Christa Wade is a 62 year old female with history of RRMS with stable inflammatory features, nowlikely transitioned to MS in remission or mild secondarily progressive MS. She has been on a numberof DMTs in the past with clinical relapses and pseudoflares, but has really had no evidence of ongoing inflammatory activity in nearly a decade. There was a single new non-enhancing lesion on the MRIbrain in 04/2019 compared to imaging from 04/2011, but within that time she was transitioning off Tysabri and did have an optic neuritis event in 11/2011. We discussed that clinically she is overall very well, and stays active, still working, and still taking care of a household that consists of her , aging mother, son and his family (8 in total at home); she really enjoys this, and we discussed that remaining active is likely contributing to her low level of disability. She does have some mild right-sided spastic changes on exam, but these are subtle, and come out only with maneuvers andin the heat. She had been maintained from [id number] on monthly IVSM, and we discontinued this in 10/2019 after our discussion that the monthly IVSM was not really doing anything to prevent her MS from progressing,and that I was concerned for her risk of osteoporosis, diabetes, infections if she continues this. She has done remarkably well since discontinuing steroid therapy, and has lost a significant amount of weight in the last year. She is maintaining a healthy lifestyle, and prefers to stay off meds at this time. She had been feeling very well until she experienced a flu about 2 weeks ago, from which she still does not feel completely recovered. Since that time, some right-sided symptoms have gotten a bit worse (significant pain in the right lateral forearm, C8 distribution, with a positive Tinel's). I suspect there is a mix of cubital tunnel syndrome, as well as old MS symptoms exacerbated in the settingof illness. I'm not concerned by the exam, which is stable since her last in-person visit in 2019. I do not think she needs imaging or high-dose steroids. [facility] [place] I will Rx a medrol dose jenifer in case the symptoms flare while she's in [facility]. She can update me when she returns. Recommendations: DMT: No DMT for now Imaging: None needed at this time Ancillary studies: consider EMG/NCV if symptoms do not improve Exercise daily 30 mins/day, lifestyle (healthy eating) discussed - she's doing great Vitamin D supplementation Manage medical comorbidities Medrol Dose Pack for cubital tunnel syndrome Meds: continue Gabapentin, cymbalta She may follow up with me in 12 month(s) or sooner if needed. ICD-10-CM 1. MS (multiple sclerosis) (HCC) G35 2. Cubital tunnel syndrome on right G56.21 3. Neuropathic pain M79.2 Gayathri Roa MD Staff Physician Neuroimmunology and Neuroinfectious Diseases Total time spent face to face in this visit was 25 minutes of which more than 50% was spent discussing and counseling the patient/caregiver(s) regarding disease pathophysiology, test results, medication management, and management of symptoms. Total time spent on this date of service including non-face to face was 40 minutes in preparation, delivery, and documentation of care provided to Christa Tasha Wade, excluding time spent in performance of separately billable services. Details outlined above in impression and plan. documented in this encounter Nursing Notes * Manuela Nixon MED ASSIST - 02/06/2023 2:20 PM EST Chief Complaint Patient presents with Follow Up documented in this encounter Plan of Treatment Upcoming Encounters Date Type Department Care Team (Latest Contact Info) Description 02/27/2023 11:15 AM EST Office Visit Orthopaedics [facility] [address] [place] [address] Michael Melgoza, DO [address] [place] [address] 05/04/2023 12:45 PM EST Hospital Encounter ENDO [facility], Endoscopy Room [facility] [address] [place] [address] Tory He, DO [address] [place] [address] 05/04/2023 12:45 PM EST - 05/04/2023 1:15 PM EST Surgery ENDO [facility], Endoscopy Room [facility] [address] [place], [place] [address] Tory He, DO [address] [place] [address] COLONOSCOPY FLEXIBLE PROXIMAL DIAGNOSTIC 07/11/2023 2:00 PM EDT Office Visit General Internal Medicine [facility] [address] [place] [address] Key Love MD [address] [place] [address] 02/05/2024 10:00 AM EST Office Visit Neurology [facility] [address] [place] [address] Gayathri Roa MD [address], [place] [id number] Scheduled Procedures Name Priority Associated Diagnoses Date/Ti [...] Screening 06/29/2023 06/28/2022 Mammogram 01/25/2024 01/24/2023, 07/25, 06/01/2020, Additional history exists Diabetes Screening 01/03/2026 01/03/2023, [...] MS (multiple sclerosis) (HCC)- Primary Multiple sclerosis Cubital tunnel syndrome on right Lesion of ulnar nerve Neuropathic pain Neuralgia, neuritis, and radiculitis, unspecified Adenomatous polyp of colon, unspecified part of colon documented in this encounter Advance Directives Latest Code Status on File Code Status Date Activated Date Inactivated Comments Full Code 06/30/2020 9:06 AM 06/30/2020 2:17 PM This or gabi reflects the patients wishes and were consensually agreed upon. Care Teams Lute Packer Or Applier Relationship Specialty Start Date End Date Key Love MD [address] [place], [place] [address] PCP - General Internal Medicine 11/19/19 documented as of this encounter
--- OUTSIDE RECORDS SUMMARY | 2023-03-15 16:24 | External Medical Summary | Summary of Care ---
Author Name Unknown Organization [facility] Address [address] [place] [address] Phone [phone] Care Team Providers Care Fountain Roller Assembler Name Role Phone Key Love MD Primary Care Provider [phone] Encounter Details Date Type Department Care Team ([facility] st Contact Info) Description 02/14/2023 Patient Reported [...] 02/27/2023 11:15 AM EST Office Visit Orthopaedics [facility] [address] [place] [address] Michael Melgoza, DO [address] [place] [address] 05/04/2023 1:00 PM EST Hospital Encounter ENDO [facility], Endoscopy Room [facility] [address] [place] [phone] Tory He, DO [address] [place] [address] 05/04/2023 1:00 PM EST - 05/04/2023 1:30 PM EST Surgery ENDO [facility], Endoscopy Room [facility] [address] [place] [address] Tory He DO [address] [place] [address] COLONOSCOPY FLEXIBLE PROXIMAL DIAGNOSTIC 07/11/2023 2:00 PM EDT Office Visit General Internal Medicine [facility] [address] [facility] [place] [address] Key Love MD [address] [place] [address] 02/05/2024 10:00 AM EST Office Visit Neurology [facility] [place] [address] [facility] [place] [address] Gayathri Roa MD [address] [place] [address] Scheduled Procedures Name Priority Associated [...] and were consensually agreed upon. Care Teams Fountain Roller Assembler Relationship Specialty Start Date End Date Key Love MD [address] [place] [address] PCP - General Internal Medicine 11/19/19 documented as of this encounter
--- OUTSIDE RECORDS SUMMARY | 2023-03-15 16:24 | External Medical Summary | Summary of Care ---
Author Name Unknown Organization [facility] Address [address] [place] [address] Phone [phone] Care Team Providers Care Insulation Board Coater Operator Name Role Phone Key Love MD Primary Care Provider [phone] Reason for Visit * Reason Onset Date Comments Health Maintenance 01/10/2023 Encounter Details Date Type Department Care Team Description 01/10/2023 Telephone General Internal Medicine [facility] [address] [place] [address] Key Love MD [address] [place] [address] Health Maintenance Allergies No known active allergiesdocumented as of this encounter (statuses as of 01/10/2023) Medications Medication Sig Dispensed Refills Start Date [...] as of this encounter (statuses as of 01/10/2023) Active Problems Problem Noted Date BMI 28.0-28.9,adult 06/29/2022 Constipation 01/15/2020 Tobacco abuse 01/15/2020 Hyperlipidemia with target LDL less than 100 04/05/2018 Multiple sclerosis 08/03/2007 Current moderate episode of major depressive disorder without prior episode 01/17/2007 documented as of this encounter (statuses as of 01/10/2023) Resolved Problems Problem Noted Date Resolved Date [...] as of this encounter (statuses as of 01/10/2023) Immunizations Name Administration Dates Next Due COVID-19 [...] encounter Miscellaneous Notes * Telephone Encounter - Irasema Hu LPN - 01/10/2023 9:47 AM EDT Care Gaps Comprehensive Care Outreach Last Office/Telemedicine Visit: 01/03/2023 (in office), 04/01/2020 (telemedicine) Next Office Visit: 07/11/2023 Hemoglobin AIC Results: No results found for: HEMOGLOBIN A1C Reviewed Health Maintenance below: Health Maintenance Topic Date Due HIV Screening Never done Zoster Vaccines (1 of 2) Never done Pneumococcal Vaccine: Pediatrics (0 to 5 Years) and At-Risk Patients (6 to 64 Years) (2 - PCV) 06/16/2018 Mammogram 08/10/2022 Influenza Vaccine (FLU shot) (1) 11/25/2022 COVID-19 Vaccine ( - season) 2022 COLONOSCOPY-EVERY 3 YRS AGES 18-100 01/06/2023 Cervical Cancer Screening 01/14/2023 Mamm already scheduled Colon already scheduled Pap my g Care Gap Outreach Action Taken: Myportal message sent documented in this encounter Plan of Treatment Upcoming Encounters Date Type Specialty Care Team Description 01/24/2023 Imaging Radiology 02/06/2023 Office Visit Neurology [facility], Gayathri Marshall MD [address] [place] [address] 05/04/2023 Hospital Encounter Endoscopy Tory He, DO [address] [place] [address] 05/04/2023 Surgery Endoscopy Tory He, DO [address] [place] [address] COLONOSCOPY FLEXIBLE PROXIMAL DIAGNOSTIC 07/11/2023 Office Visit Internal Medicine Key Love MD [address] [place] [address] Scheduled Procedures Name Priority Associated Diagnoses Date/Ti [...] 10/2020, 07/03/2018, Additional history exists COVID-19 Vaccine ( - season) 2022 06/29/2020, 06/01/2020 Influenza Vaccine [...] and were consensually agreed upon. Care Teams Insulation Board Coater Operator Relationship Specialty Start Date End Date Key Love MD 200 [facility] [place] [address] PCP - General Internal Medicine 11/19/19 documented as of this encounter
--- OUTSIDE RECORDS SUMMARY | 2023-03-15 16:24 | External Medical Summary | Summary of Care ---
Author Name Unknown Organization [facility] Address [address] [place] [address] Phone [phone] Care Team Providers Care Chucking Lathe Operator Name Role Phone Key Love MD Primary Care Provider [phone] Reason for Visit * Reason Onset Date Comments Test Results 01/12/2023 Encounter Details Date Type Department Care Team Description 01/12/2023 Telephone General Internal Medicine [facility] [address] [place] [address] Key Love MD 200 [facility] [place] [address] Test Results Allergies No known active allergiesdocumented as of this encounter (statuses as of 01/12/2023) Medications Medication Sig Dispensed Refills Start Date End Date Status VITAMIN D 1000 UNIT PO CAPSIndications:M ultiple sclerosis (HCC) one po daily 30 6 09/10/2007 Active CYMBALTA 60 MG PO CPEP Take by mouth daily. 0 Active CYMBALTA 30 MG PO CPEP Take by mouth daily. 0 Active Cyanocobalamin 1000 MCG Oral Tablet Take 1 Tablet by mouth every afternoon. 30 Tab 0 06/16/2016 Active liothyronine (CYTOMEL) 5 MCG TabletIndications :Other depression 2.5 tabs daily per 30 Tab [...] 360 Capsule 3 12/01/2022 Active Benefiber Oral PowderIndications :Chronic idiopathic constipation Take 1 Tbsf in a glass of water daily 0 01/03/2023 Active Docusate Sodium 100 MG Oral Capsule (Colace)Indicatio ns:Chronic idiopathic constipation Take 1 Capsule by mouth 2 times a day as needed for Constipation. 60 Capsule 11 01/03/2023 Active Atorvastatin Calcium 40 MG Oral Tablet (Lipitor)Indicati ons:Hyperlipidemi a with target LDL less than 100 Take 1 Tablet by mouth in the morning. 90 Tablet 3 01/12/2023 Active Atorvastatin Calcium 20 MG Oral Tablet (Lipitor)Indicati ons:Dyslipidemia, goal LDL below 130 TAKE ONE TABLET BY MOUTH IN THE EVENING for cholesterol 90 Tablet 3 03/24/2022 3 Discontinue d(Medicatio n/Dose Changed) documented as of this encounter (statuses as of 01/12/2023) Active Problems Problem Noted Date BMI 28.0-28.9,adult 06/29/2022 Constipation 01/15/2020 Tobacco abuse 01/15/2020 Hyperlipidemia with target LDL less than 100 04/05/2018 Multiple sclerosis 08/03/2007 Current moderate episode of major depressive disorder without prior episode 01/17/2007 documented as of this encounter (statuses as of 01/12/2023) Resolved Problems Problem Noted Date Resolved Date [...] as of this encounter (statuses as of 01/12/2023) Immunizations Name Administration Dates Next Due COVID-19 [...] encounter Miscellaneous Notes * Telephone Encounter - Key Love MD - 01/12/2023 2:31 PM EDT Sent * Telephone Encounter - Stacey Jimenes LPN - 01/12/2023 1:42 PM EDT Patient aware and verbalized understanding Has been taking lipitor Would like rx sent for increased dose - pharmacy verified * Telephone Encounter - Stacey Jimenes LPN - 01/12/2023 1:39 PM EDT ----- Message from Key Love MD sent at 01/09/2023 3:37 PM EDT ----- Cholesterol better3 but still high, check if she is taking lipitor regularly. If no needs to take it daily and if yes increase to 40 mg hs and repeat lipid and alt in 3 months Rest okay documented in this encounter Plan of Treatment Upcoming Encounters Date Type Specialty Care Team Description 01/24/2023 Imaging Radiology 02/06/2023 Office Visit Neurology [facility], Gayathri Marshall MD [address] [place] [address] 05/04/2023 Hospital Encounter Endoscopy Tory He, DO [address] [place] [address] 05/04/2023 Surgery Endoscopy Tory He, DO [address] [place] [address] COLONOSCOPY FLEXIBLE PROXIMAL DIAGNOSTIC 07/11/2023 Office Visit Internal Medicine Key Love MD 200 [place] [address] Scheduled Orders Name Type Priority Associated Diagnoses Orde r Schedule LIPID PANEL WITH DIRECT LDL IF TG IS HIGH Lab Routine Hyperlipidemia with target LDL less than 100 Expected: 04/14/2023, Expires: 01/13/2024 HEPATIC FUNCTION PANEL Lab Routine Hyperlipidemia with target LDL less than 100 Expected: 04/14/2023, Expires: 01/12/2024 Scheduled Procedures Name Priority Associated Diagnoses Date/Ti [...] - PCV) 06/16/2018 06/16/2017 Mammogram 08/10/2022 08/10/2021, 10/2020, 07/03/2018, Additional history exists COVID-19 Vaccine ( season) 2022 06/29/2020, 06/01/2020 Influenza Vaccine (FLU [...] as of this encounter Visit Diagnoses Diagnosis Hyperlipidemia with target LDL less than 100- Primary Other and unspecified hyperlipidemia Adenomatous polyp of colon, unspecified part of colon documented in this encounter Advance Directives Latest Code Status on File Code Status Date Activated Date Inactivated Comments Full Code 06/30/2020 9:06 AM 06/30/2020 2:17 PM This or gabi reflects the patients wishes and were consensually agreed upon. Care Teams Chucking Lathe Operator Relationship Specialty Start Date End Date Key Love MD [address] [place] [address] PCP - General Internal Medicine 11/19/19 documented as of this encounter
--- OUTSIDE RECORDS SUMMARY | 2023-03-15 16:24 | External Medical Summary | Summary of Care ---
Author Name Unknown Organization [facility] Address [address] [place] [address] Phone [phone] Care Team Providers Care Powdered Sugar Supervisor Name Role Phone Key Love MD Primary Care Provider [phone] Encounter Details Date Type Department Care Team ([facility] st Contact Info) Description 02/14/2023 Patient [...] 02/27/2023 11:15 AM EST Office Visit Orthopaedics [facility] [address] [place] [address] Michael Melgoza, DO [address] [place] [address] 05/04/2023 1:00 PM EST Hospital Encounter ENDO [facility], Endoscopy Room [facility] [address] [place] [phone] Tory He, DO [address] [place] [address] 05/04/2023 1:00 PM EST - 05/04/2023 1:30 PM EST Surgery ENDO [facility], Endoscopy Room [facility] [address] [place] [phone] Tory He DO [address] [place] [address] COLONOSCOPY FLEXIBLE PROXIMAL DIAGNOSTIC 07/11/2023 2:00 PM EDT Office Visit General Internal Medicine [facility] 200 [facility] [place] [address] Key Love MD [address] [place] [address] 02/05/2024 10:00 AM EST Office Visit Neurology [facility] 200 [facility] [place] [address] Gayathri Roa MD [address] [place] [address] Scheduled Procedures Name Priority Associated [...] and were consensually agreed upon. Care Teams Powdered Sugar Supervisor Relationship Specialty Start Date End Date Key Love MD 200 [facility] [place] [address] PCP - General Internal Medicine 11/19/19 documented as of this encounter
--- OUTSIDE RECORDS SUMMARY | 2023-03-15 16:24 | External Medical Summary | Summary of Care ---
Author Name Unknown Organization [facility] Address [address] [place] [address] Phone [phone] Care Team Providers Care Education Spec Name Role Phone Key Love MD Primary Care Provider [phone] Reason for Referral * Ancillary Services (Within 30 days (routine)) - Authorized Specialty Diagnoses / Procedures Referred By Contac t Referred To Contact Gastroenterology Diagnoses Adenomatous polyp of colon, unspecified part of colon Key Love MD [address] [place] [address] Referral ID Status Reason Start Date Expiration Date Visits Requested Visits Authorized [id number] Authorized Ancillary Services Required 3 [phone] Question Answer Referral Priority Within 30 days (routine) Where should this appointment be scheduled? [facility] Comments ALERT: Do not order for pediatric patients (18 years or younger). Cancel off screen and order PEDS GASTROENTEROLOGY CONSULT (Type: 1 visit only-Evaluate and Treat) The following Pt. Instructions are available: - Gastro Colonoscopy Prep Instructions [[id number]] - Gastro Colonoscopy Prep Instructions (Japanese Version) [[id number]] Go to the Pt. Instructions section within the Visit Navigator to access. Colonoscopy ASGE Guidelines: Postadenoma resection: 3-10 adenomas or adenoma with villous features, greater than or equal 1 cm, or with high-grade dysplasia (3 yr intervals) ADDITIONAL INFORMATION 1. Is the patient on Coumadin? No 2. Is the patient on Pradaxa? No Reason for Visit * Reason Comments Follow Up 6mo return Encounter Details Date Type Department Care Team Description 01/03/2023 Office Visit General Internal Medicine [facility] [place] 200 [facility] [place], [place] [address] Key Love MD 200 [facility] [place] [address] Hyperlipidemia with target LDL less than 100*; Current moderate episode of major depressive disorder without prior episode (HCC); Chronic idiopathic constipation; BMI 28.0-28.9,adult; Encounter for screening mammogram for malignant neoplasm of breast; Multiple sclerosis (HCC); Tobacco abuse; Adenomatous polyp of colon, unspecified part of colon Allergies No known active allergiesdocumented as of this encounter (statuses as of 01/03/2023) Medications Medication Sig Dispensed Refills Start Date End Date Status VITAMIN D 1000 UNIT PO CAPSIndications:M ultiple sclerosis (HCC) one po daily 30 6 8 Active CYMBALTA 60 MG PO CPEP Take by mouth daily. 0 Active CYMBALTA 30 MG PO CPEP Take by mouth daily. 0 Active Cyanocobalamin 1000 MCG Oral Tablet Take 1 Tablet by mouth every afternoon. 30 Tab 0 7 Active liothyronine (CYTOMEL) 5 MCG TabletIndications :Other depression 2.5 tabs daily per 30 Tab 5 8 Active clonazePAM 0.5 MG Oral Tablet Take [...] THE EVENING for cholesterol 90 Tablet 3 2 Active Gabapentin 400 MG Oral Capsule (Neurontin) TAKE 1 CAPSULE BY MOUTH FOUR TIMES DAILY 360 Capsule 3 3 Active Benefiber Oral PowderIndications :Chronic idiopathic constipation Take 1 Tbsf in a glass of water daily 0 3 Active Docusate Sodium 100 MG Oral Capsule (Colace)Indicatio ns:Chronic idiopathic constipation Take 1 Capsule by mouth 2 times a day as needed for Constipation. 60 Capsule 11 3 Active MAGNESIUM OXIDE 400 MG PO CAPSIndications:P alpitations 1 po daily 30 11 8 01/04/20 23 Discontinued documented as of this encounter (statuses as [...] Sign Reading Time Taken Comments Blood Pressure 122/80 01/03/2023 2:09 PM EDT Pulse 71 01/03/2023 2:09 PM EDT Temperature 36.9 C (98.4 F) 01/03/2023 2:09 PM ED T Respiratory Rate - - Oxygen Saturation 99% 01/03/2023 2:09 PM EDT Inhaled Oxygen Concentration - - Weight 76.6 kg (168 lb 14.4 oz) 01/03/2023 2:09 PM EDT Height 160 cm (5' 3") 01/03/2023 2:09 PM EDT Body Mass Index 29.92 01/03/2023 2:09 PM EDT documented in this encounter Progress Notes * Key Love MD - 01/03/2023 2:22 PM EDT Images from the original note were not included. History of Present Illness Christa Wade is a 62 year old female that presents for Follow Up (6mo return) 62 year old femlae with PMH significant for MS, hyperlipidemia, obesity, Depression presents here for recheck. Acute concern :- -mom recently and busy and stressful sorting things away and dealing with family -smoking less and planning on quitting along with her Interimmedical history : as above Watching diet and exercise : can work on exercise and less desert Routine labs : due Routine HM : declines all vaccines Chronic medical problem: reviewed and stable Physical Exam Vitals: 01/03/23 1409 Temp: 36.9 C (98.4 F) Pulse: 71 SpO2: 99% BP: 122/80 BMI: 29.93 Physical Exam Vitals and nursing note reviewed. Constitutional: General: She is not in acute distress. Appearance: She is normal weight. HENT: Head: Normocephalic. Cardiovascular: Rate and Rhythm: Normal rate and regular rhythm. Pulmonary: Effort: Pulmonary effort is normal. No respiratory distress. Breath sounds: No wheezing. Abdominal: General: Bowel sounds are normal. There is no distension. Palpations: Abdomen is soft. There is no mass. Musculoskeletal: General: No swelling, tenderness or signs of injury. Cervical back: Neck supple. No rigidity. Skin: General: Skin is warm. Findings: No erythema, lesion or rash. Neurological: General: No focal deficit present. Mental Status: She is alert. I have reviewed the following results: Assessment and Plan Hyperlipidemia with target LDL less than 100 Stable Continue current treatment as directed - COMPREHENSIVE METABOLIC PANEL; Future - LIPID PANEL WITH DIRECT LDL IF TG IS HIGH; Future Current moderate episode of major depressive disorder without prior episode (HCC) Stable Continue current treatment as directed - TSH; Future - T3, FREE; Future Chronic idiopathic constipation Benifiber daily - Docusate Sodium 100 MG Oral Capsule (Colace); Take 1 Capsule by mouth 2 times a day as needed forConstipation. BMI 28.0-28.9,adult Encounter for screening mammogram for malignant neoplasm of breast - MAMMOGRAM SCREENING LISA BILATERAL; Future Multiple sclerosis (HCC) Tobacco abuse Adenomatous polyp of colon, unspecified part of colon - COLONOSCOPY, GI REFERRAL OP Wrap-Up Time: I spent a total of 30-39 minutes (exact time 38 mins) on the date of service in preparation, delivery, and documentation of the care provided to Christa Tasha Blair excluding any time spent in the performance of separately billed services. documented in this encounter Nursing Notes * Rosemarie Michaels LPN - 01/03/2023 2:08 PM EDT Chief Complaint Patient presents with Follow Up 6mo return documented in this encounter Plan of Treatment Upcoming Encounters Date Type Specialty Care Team Description 01/24/2023 Imaging Radiology 02/06/2023 Office Visit Neurology [place] MD [address] [place] [address] 07/11/2023 Office Visit Internal Medicine Key Love MD [address] [place] [address] Pending Results Name Type Priority Associated Diagnoses Date /Time LIPID PANEL WITH DIRECT LDL IF TG [...] Type Priority Associated Diagnoses Orde r Schedule MAMMOGRAM SCREENING LISA BILATERAL Medical Imaging Routine Encounter for screening mammogram for malignant neoplasm of breast Expected: 01/03/2023, Expires: 02/04/2024 LIPID PANEL WITH DIRECT LDL IF TG IS HIGH Lab Routine Hyperlipidemia with target LDL less than 100 Expected: 01/03/2023 (Approximate), Expires: 01/04/2024 TSH Lab Routine Current moderate episode of major depressive disorder without prior episode (HCC) Expected: 01/03/2023 (Approximate), Expires: 01/03/2024 T3, FREE Lab Routine Current moderate episode of major depressive disorder without prior episode (HCC) Expected: 01/03/2023 (Approximate), Expires: 01/03/2024 Scheduled Procedures Name Priority Associated Diagnoses Date/Ti me COLONOSCOPY FLEXIBLE PROXIMAL DIAGNOSTIC Recall History of colon polyps Scheduled Referrals Name Type Priority Associated Diagnoses Orde r Schedule COLONOSCOPY, GI REFERRAL OP Referral Within 30 days (routine) Adenomatous polyp of colon, unspecified part of colon Ordered: 01/03/2023 Health Maintenance Due Date Last Done Comments [...] 06/28/2022, 12/24/2021, Additional history exists Lipid Panel 06/29/2027 06/28/2022, [...] Not on filedocumented as of this encounter Results * COMPREHENSIVE METABOLIC PANEL (01/03/2023 3:02 PM EDT) [facility] BUN 12 6 - 20 mg/dL 01/03/2023 4:04 PM EDT [facility] 56 Creatinine 0.8 0.5 - 1.0 mg/dL 01/03/2023 4:04 PM EDT [facility] 56 Estimated Glomerular Filtration Rate 85 >=60 mL/min 01/03/2023 4:04 PM EDT [facility] 56 Comment:eGFR is calculated b ased on the CKD-EPI 2020 equation Sodium 140 135 - 146 mmol/L 01/03/2023 4:04 PM EDT [facility] 56 Potassium 4.5 3.5 - 5.1 mmol/L 01/03/2023 4:04 PM EDT [facility] 56 Chloride 104 98 - 107 mmol/L 01/03/2023 4:04 PM EDT [facility] 56 CO2 26 22 - 32 mmol/L 01/03/2023 4:04 PM EDT [facility] 56 Anion Gap 10 7 - 15 mmol/L 01/03/2023 4:04 PM EDT [facility] 56 Glucose 75 70 - 120 mg/dL 01/03/2023 4:04 PM EDT [facility] 56 Albumin 4.5 3.8 - 5.0 g/dL 01/03/2023 4:04 PM EDT [facility] 56 AST 16 10 - 35 U/L 01/03/2023 4:04 PM EDT [facility] 56 Alkaline Phosphatase 87 35 - 130 U/L 01/03/2023 4:04 PM EDT [facility] 56 Bilirubin, Total 0.7 <=1.2 mg/dL 01/03/2023 4:04 PM EDT [facility] 56 Calcium 10.1 8.4 - 10.2 mg/dL 01/03/2023 4:04 PM EDT [facility] 56 Protein 6.8 6.0 - 8.3 g/dL 01/03/2023 4:04 PM EDT [facility] 56- ALT 10 10 - 35 U/L 01/03/2023 4:04 PM EDT [facility] 56 Blood Venous blood specimen / Unknown Venipuncture / Unknown 01/03/2023 3:02 PM EDT 01/03/2023 3:02 PM EDT Key Love MD LAB BLOOD ORDERABLES [facility] 56-02 [facility] [address] documented in this encounter Visit Diagnoses Diagnosis Hyperlipidemia with target LDL less than 100- Primary Other and unspecified hyperlipidemia Current moderate episode of major depressive disorder without prior episode (HCC) Chronic idiopathic constipation Unspecified constipation BMI 28.0-28.9,adult Body Mass Index 28.0-28.9, adult Encounter for screening mammogram for malignant neoplasm of breast Other screening mammogram Multiple sclerosis (HCC) Multiple sclerosis Tobacco abuse Tobacco use disorder Adenomatous polyp of colon, unspecified part of colon documented in this encounter Advance Directives Latest Code Status on File Code Status Date Activated Date Inactivated Comments Full Code 06/30/2020 9:06 AM 06/30/2020 2:17 PM This or gabi reflects the patients wishes and were consensually agreed upon. Care Teams Education Spec Relationship Specialty Start Date End Date Key Love MD [address] [facility] [address] PCP - General Internal Medicine 11/19/19 documented as of this encounter
--- OUTSIDE RECORDS SUMMARY | 2023-03-15 16:25 | External Medical Summary | Summary of Care ---
Author Name Unknown Organization [facility] Address [address] [place] [address] Phone [phone] Care Team Providers Care Staff Developer Name Role Phone Key Love MD Primary Care Provider [phone] Reason for Visit * Reason Comments eRx-Medication Refill Encounter Details Date Type Department Care Team Description 11/03/2022 Refill Neurology [facility] [address] [place] [address] Anthony Dupree MD [address] [place] [id number] Allergies No known active allergiesdocumented as of this encounter (statuses as of 11/03/2022) Medications Medication Sig Dispensed Refills Start Date End Date Status MAGNESIUM OXIDE 400 MG PO CAPSIndications :Palpitations 1 po daily 30 11 04/13/2007 Active VITAMIN D 1000 UNIT PO CAPSIndications :Multiple sclerosis (HCC) one po daily 30 6 09/10/2007 Active CYMBALTA 60 MG PO CPEP Take by mouth daily. 0 Active CYMBALTA 30 MG PO CPEP Take by mouth daily. 0 Active Cyanocobalamin 1000 MCG Oral Tablet Take 1 Tablet by mouth every afternoon. 30 Tab 0 06/16/2016 Active liothyronine (CYTOMEL) 5 MCG TabletIndicatio ns:Other depression 2.5 tabs daily per 30 Tab [...] Active Atorvastatin Calcium 20 MG Oral Tablet (Lipitor)Indica tions:Dyslipide jesica, goal LDL below 130 TAKE ONE TABLET BY MOUTH IN THE EVENING for cholesterol 90 Tablet 3 03/24/2022 Active Gabapentin 400 MG Oral Capsule (Neurontin) TAKE 1 CAPSULE BY MOUTH FOUR TIMES DAILY 120 Capsule 0 11/03/2022 Active Gabapentin 400 MG Oral Capsule (Neurontin) TAKE 1 CAPSULE BY MOUTH FOUR TIMES DAILY 120 Capsule 0 08/12/2022 3 Discontinued documented as of this encounter (statuses as of 11/03/2022) Active Problems Problem Noted Date BMI 28.0-28.9,adult 06/29/2022 Constipation 01/15/2020 Tobacco abuse 01/15/2020 longterm (current) use of systemic ster oids 04/05/2018 Hyperlipidemia with target LDL less than 100 04/05/2018 Multiple sclerosis 08/03/2007 Current moderate episode of major depressive disorder without prior episode 01/17/2007 documented as of this encounter (statuses as of 11/03/2022) Resolved Problems Problem Noted Date Resolved Date [...] as of this encounter (statuses as of 11/03/2022) Immunizations Name Administration Dates Next Due COVID-19 mRNA, LNP-s, No Pre serve, 2-Dose Series (Moderna) 06/29/2020,06/01/2020 Pneumococcal Polysaccharide PPV23 (Pneumovax) Seasonal Influenza, Cell Culture, 18 Yrs & Older 04/08/2013 Seasonal Influenza, Quadriva lent, No Preserve, 6 Mons & Above, IM 01/15/2020 Seasonal Influenza, Quadrivalent, No Preserve, I M [...] Miscellaneous Notes * Telephone Encounter - Gayathri Roa MD - 11/03/2022 2:58 PM EDTSigned Prescriptions: Disp Refills Gabapentin 400 MG Oral Capsule (Neurontin) 120 Ca*0 Sig: TAKE 1 CAPSULE BY MOUTH FOUR TIMES DAILY Authorizing Provider: GAYATHRI ROA * Telephone Encounter - Gayathri Winston LPN - 11/03/2022 11:19 AM EDTPending Prescriptions: Disp Refills Gabapentin 400 MG Oral Capsule [Pharmacy M*120 Ca*0 Sig: TAKE 1 CAPSULE BY MOUTH FOUR TIMES DAILY * Telephone Encounter - Melba Angeles CPhT - 11/03/2022 10:48 AM EDTPending Prescriptions: Disp Refills Gabapentin 400 MG Oral Capsule [Pharmacy M*120 Ca*0 Sig: TAKE 1 CAPSULE BY MOUTH FOUR TIMES DAILY * Telephone Encounter - Melba Agneles CPhT - 11/03/2022 10:47 AM EDT Did you pend patient's preferred pharmacy and medication before forwarding?yes Pharmacy: [id number] Pending Prescriptions: Disp Refills Gabapentin 400 MG Oral Capsule (Neurontin*120 Ca*0 Sig: TAKE 1 CAPSULE BY MOUTH FOUR TIMES DAILY Last Visit: 11/04/2019 (in office), 01/25/2021 (telemedicine) Next Visit: 02/06/2023 If no future appointments scheduled, and last appointment is greater than a year ago, please schedule patient for a follow-up appointment Last date the medication was ordered: 08.12.22 Is this request for a controlled substance?No Urine Drug Screen:No results found for this or any previous visit. Patient Phone Numbers Labs: Lab Results Component Value Date/Time CREAT 0.8 06/28/2022 03:07 PM CREAT 1.0 04/17/2020 10:58 AM POTASSIUM 4.5 06/28/2022 03:07 PM POTASSIUM 4.6 04/17/2020 10:58 AM TSH 1.32 06/28/2022 03:07 PM TSH 1.17 04/20/2020 01:00 PM LDLCALC 188 (H) 06/28/2022 03:07 PM LDLCALC 113 04/17/2020 10:58 AM LDLDIRECT NOT APPLICABLE 04/17/2020 10:58 AM ALT 12 06/28/2022 03:07 PM ALT 62 (H) 04/20/2020 01:00 PM documented in this encounter Plan of Treatment Upcoming Encounters Date Type Specialty Care Team Description 01/03/2023 Office Visit Internal Medicine Key Love MD [address] [place] [address] 02/06/2023 [facility] [address] [place] [address] Scheduled Procedures Name Priority Associated Diagnoses Date/Ti [...] Td or Tdap) 04/08/2023 04/08/2013, 11/23/2001 Depression Screening, Annual for Pts 12 and Over 06/29/2023 06/28/2022 Diabetes Screening 06/28/2025 06/28/2022, 0 [...] and were consensually agreed upon. Care Teams Staff Developer Relationship Specialty Start Date End Date Key Love MD [address] [place] [address] PCP - General Internal Medicine 11/19/19 documented as of this encounter
--- OUTSIDE RECORDS SUMMARY | 2023-03-15 16:25 | External Medical Summary | Summary of Care ---
Author Name Unknown Organization [facility] Address [address] [place] [address] Phone [phone] Care Team Providers Care Spa Attendant Name Role Phone Key Love MD Primary Care Provider [phone] Reason for Visit * Reason Comments eRx-Medication Refill Encounter Details Date Type Department Care Team Description 11/29/2022 Refill Neurology [facility] [address] [place] [address] Gayathri Roa MD [address] [place] [address] Allergies No known active allergiesdocumented as of this encounter (statuses as of 12/01/2022) Medications Medication Sig Dispensed Refills Start Date [...] TIMES DAILY 360 Capsule 3 12/01/2022 Active Gabapentin 400 MG Oral Capsule (Neurontin) TAKE 1 CAPSULE BY MOUTH FOUR TIMES DAILY 120 Capsule 0 11/03/2022 3 Discontinued documented as of this encounter (statuses as of 12/01/2022) Active Problems Problem Noted Date BMI 28.0-28.9,adult 06/29/2022 Constipation 01/15/2020 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 04/05/2018 Hyperlipidemia with target LDL less than 100 04/05/2018 Multiple sclerosis 08/03/2007 Current moderate episode of major depressive disorder without prior episode 01/17/2007 documented as of this encounter (statuses as of 12/01/2022) Resolved Problems Problem Noted Date Resolved Date [...] as of this encounter (statuses as of 12/01/2022) Immunizations Name Administration Dates Next Due COVID-19 mRNA, LNP-s, No Pre serve, 2-Dose Series (Moderna) 06/29/2020,06/01/2020 Pneumococcal Polysaccharide PPV23 (Pneumovax) Season Influenza, Cell Culte r, 18+ Yrs, With Preserv (Flucelvax) 04/08/2013 Seasonal Influenza, PF, 6 mo ns & Above, IM , (Flulaval) 01/15/2020 Seasonal Influenza, Quadrivalent, No Preserve, I [...] encounter Miscellaneous Notes * Telephone Encounter - Quentin Matson MD - 12/01/2022 8:51 AM EDTSigned Prescriptions: Disp Refills Gabapentin 400 MG Oral Capsule (Neurontin) 360 Ca*3 Sig: TAKE 1 CAPSULE BY MOUTH FOUR TIMES DAILY Authorizing Provider: QUENTIN MATSON * Telephone Encounter - Gayathri Winston LPN - 11/30/2022 12:32 PM EDTPending Prescriptions: Disp Refills Gabapentin 400 MG Oral Capsule (Neurontin) 360 Ca*3 Sig: TAKE 1 CAPSULE BY MOUTH FOUR TIMES DAILY * Telephone Encounter - Misty Silverman [facility] - 11/30/2022 12:28 PM EDTPending Prescriptions: Disp Refills Gabapentin 400 MG Oral Capsule [Pharmacy M*120 Ca*0 Sig: TAKE 1 CAPSULE BY MOUTH FOUR TIMES DAILY * Telephone Encounter - Misty Silverman [facility] - 11/30/2022 12:28 PM EDT [facility] is currently not authorized to approve refills for the pended medication(s) per refill protocol. Please approve if appropriate. Thanks, Misty Silverman, PharmD Clinical Pharmacist [facility] ([facility]) (formerly [email or web address]) [phone] 11/30/2022 12:28 PM * Telephone Encounter - Misty Silverman [facility] - 11/30/2022 12:27 PM EDT Pending Prescriptions: Disp Refills Gabapentin 400 MG Oral Capsule (Neurontin*120 Ca*0 Sig: TAKE 1 CAPSULE BY MOUTH FOUR TIMES DAILY Last Visit: 11/04/2019 (in office), 01/25/2021 (telemedicine) Next Visit: 02/06/2023 If no future appointments scheduled, and last appointment is greater than a year ago, please schedule patient for a follow-up appointment Last date the medication was ordered: 11/03/22 Pharmacy: [facility] [id number] Is this request for a controlled substance? No Urine Drug Screen:No results found for this [...] Visit Internal Medicine Key Love MD [address] [place] [address] 02/06/2023 [facility] [address] [place] [address] Scheduled Procedures Name Priority Associated [...] and were consensually agreed upon. Care Teams Spa Attendant Relationship Specialty Start Date End Date Key Love MD [address] [facility] [place] [address] PCP - General Internal Medicine 11/19/19 documented as of this encounter
--- OUTSIDE RECORDS SUMMARY | 2023-03-15 16:25 | External Medical Summary ---
Author Name Unknown Address Unknown Organization K01:[facility] [address] [place] [address] Laboratory Report Ordering Provider Test Date Status HAILEY DUMONT 01/03/2023 15:02:56 Final Observation Date Value Abnormality Reference (Units ) Status T4, Total 01/03/2023 15:02:56 7.1 4.6-12.0 ( ug/dL) Final Performing Location [facility] - [address] [place] [address]
--- OUTSIDE RECORDS SUMMARY | 2023-03-15 16:25 | External Medical Summary ---
Author Name Unknown Address Unknown Organization K01:[facility] - [address] [place] [address] Laboratory Report Ordering Provider Test Date Status NINOSKA PALMER 01/03/2023 15:02:56 Final Observation Date Value Abnormality Reference (Units ) Status T3, Free 01/03/2023 15:02:56 2.5 2.5-4.3 (p g/mL) Final Performing Location [facility] - [address] [place] [address]
--- OUTSIDE RECORDS SUMMARY | 2023-03-15 16:25 | External Medical Summary ---
Author Name Unknown Address Unknown Organization K09:[id number] [place] [address] Laboratory Report Ordering Provider Test Date Status NINOSKA PALMER 01/03/2023 15:02:56 Final Observation Date Value Abnormality Reference (Units ) Status BUN 01/03/2023 15:02:56 12 6-20 (mg/dL) Final Creatinine 01/03/2023 15:02:56 0.8 0.5-1.0 (mg/dL) Final Glomerular filtration rate/1.73 sq M.predicted [Volume Rate/Area] in Serum, Plasma or Blood by Creatinine-based formula (CKD-EPI) 01/03/2023 15:02:56 85 >=60 (mL/min) Final eGFR is calculated based on the CKD-EPI 2020 equation SODIUM 01/03/2023 15:02:56 140 135-146 (m mol/L) Final Potassium 01/03/2023 15:02:56 4.5 3.5-5.1 (m mol/L) Final Cl 01/03/2023 15:02:56 104 98-107 (mm ol/L) Final CO2 01/03/2023 15:02:56 26 22-32 (mmo l/L) Final Anion gap 01/03/2023 15:02:56 10 7-15 (mmol /L) Final Glucose 01/03/2023 15:02:56 75 70-120 (mg /dL) Final Albumin 01/03/2023 15:02:56 4.5 3.8-5.0 (g /dL) Final AST (Aspartate aminotransferase) 01/03/2023 15:02:56 16 10-35 (U/L) Final Alk Phos 01/03/2023 15:02:56 87 35-130 (U/ L) Final Bilirubin, Total 01/03/2023 15:02:56 0.7 <=1 .2 (mg/dL) Final Calcium 01/03/2023 15:02:56 10.1 8.4-10.2 ( mg/dL) Final Protein 01/03/2023 15:02:56 6.8 6.0-8.3 (g /dL) Final ALT (Alanine aminotransferase) 01/03/2023 15:02:56 10 10-35 (U/L) Final Performing Location [facility] [address] [place] [address]
--- OUTSIDE RECORDS SUMMARY | 2023-03-15 16:25 | External Medical Summary ---
Author Name Unknown Address Unknown Organization : Laboratory Report Ordering Provider Test Date Status HAILEY DUMONT 01/03/2023 15:02:56 Final Observation Date Value Abnormality Reference (Units ) Status T3 uptake 01/03/2023 15:02:56 28 22-35 (%) Final
Test Performed at:
[facility]
[id number] [facility] [address]
[place] [address]
Manuel Knowles M.D., Ph.D.,Director of Laboratories Performing Location
--- OUTSIDE RECORDS SUMMARY | 2023-03-15 16:25 | External Medical Summary ---
Author Name Unknown Address Unknown Organization K01:[facility]AT[facility] - [address] [facility] [place] [id number] Laboratory Report Ordering Provider Test Date Status SP PALMERALI 01/03/2023 15:02:56 Final Observation Date Value Abnormality Reference (Units ) Status Triglyceride 01/03/2023 15:02:56 174 <=174 ( mg/dL) Final Triglyceride Reference Range s (mg/dL):
<150 Acceptable
150-174 Borderline high
175-499 High
>=500 Very high Cholesterol 01/03/2023 15:02:56 243 Above high normal <200 (mg/dL) Final Total Cholesterol Reference Ranges (mg/dL):
<200 Desirable
200-239 Borderline high
>=240 High HDL 01/03/2023 15:02:56 57 >49 (mg/dL ) Final HDL Cholesterol Reference Ra nges (mg/dL):
>=60 High (Desirable)
<50 Low (Undesirable) For Females
<40 Low (Undesirable) For Males NON-HDL CHOLESTEROL 01/03/2023 15:02:56 186 Above high normal <=159 (mg/dL) Final Non-HDL Cholesterol Referenc e Range (mg/dL):
<100 Target level for high risk ASCVD patient
<130 Optimal for general population
130-159 Near optimal for general population
160-189 Borderline High
190-219 High
>=220 Very High LDL, (calculated) 01/03/2023 15:02:56 151 Above high n ormal <=129 (mg/dL) Final LDL Cholesterol Reference Ra nges (mg/dL):
<70 Target level for high risk ASCVD patient
<100 Optimal for general population
100-129 Near optimal for general population
130-159 Borderline high
160-189 High
>=190 Very high Performing Location LABORATORY [facility] - [address] [facility] [address]
--- OUTSIDE RECORDS SUMMARY | 2023-03-15 16:25 | External Medical Summary ---
Author Name Unknown Address Unknown Organization K01:[facility] - [address] [place] [address] Laboratory Report Ordering Provider Test Date Status NINOSKA PALMER 01/03/2023 15:02:56 Final Observation Date Value Abnormality Reference (Units ) Status TSH 01/03/2023 15:02:56 1.25 0.27-4.20 (uIU/mL) Final Performing Location [facility] - [address] [place] [address]
[2023-03-15] MEDS ORDERED: oxyCODONE HCL IR 5 MG TAB (IMMEDIATE RELEASE) PO PRN (16:54)
[2023-03-15] MEDS ORDERED: POLYETHYLENE (MIRALAX) 17 GM PACK PO PRN (16:54)
[2023-03-15] MEDS ORDERED: ONDANSETRON INJ 2 MG/ML 2 ML VIAL IV PRN (16:54)
[2023-03-15] MEDS ORDERED: DOCUSATE SODIUM 100 MG CAP PO PRN (16:59)
[2023-03-15] MEDS: GABAPENTIN 400 MG CAP PO SCH ×2 (17:41→20:30)
[2023-03-15] MEDS: NICOTINE 21 MG/24 HR TDSY TD SCH (17:41)
[2023-03-15] MEDS: KETOROLAC TROMETHAMINE 15 MG/ML VIAL IV PRN (20:15)
[2023-03-15] MEDS: clonazePAM 0.5 MG TAB PO SCH (20:29)
[2023-03-15] MEDS: CYANOCOBALAMIN (B-12) 500 MCG TABLET PO SCH (20:30)
[2023-03-15] MEDS: ACETAMINOPHEN 500 MG TAB PO SCH (20:30)
[2023-03-16] MEDS: KETOROLAC TROMETHAMINE 15 MG/ML VIAL IV PRN ×3 (02:45→19:43)
[2023-03-16] MEDS: ACETAMINOPHEN 500 MG TAB PO SCH ×3 (05:54→21:48)
[2023-03-16 06:04] LABS: Hematocrit (blood only) 41.1 % (37.0-47.0); Hemoglobin 13.5 g/dl (12.0-16.0); Mean Corpuscular Hemoglobin 28.3 pg (25.0-34.0); Mean Corpuscular Hgb Conc 32.8 g/dL (32.0-36.0); Mean Corpuscular Volume 86.2 fL (80.0-100.0); Mean Platelet Volume 8.4 fL (9.4-12.4); Platelet Count 279 K/uL (130-400); RDW Coefficient of Variation 13.1 % (11.5-14.5); RDW Standard Deviation 41.4 fL (36.4-46.3); Red Blood Count 4.77 M/uL (4.20-5.40); White Blood Count 10.31 K/ul (4.8-10.8)
[2023-03-16 06:19] LABS: BUN Creatinine Ratio 19.5 (10-20); Calcium 8.7 mg/dl (8.6-10.3); Creatinine Clr Calc Pharmacy 69.1 ml/min; Est GFR (African American) 88.9 ml/min; Est GFR (Non-African American) 76.7 ml/min; Potassium 4.3 mmol/L (3.5-5.1)
--- NOTE | 2023-03-16 09:49 | Orthopedic Consultation ---
Date of Consultation March 16, 2023 Assessment & Plan (1) Closed fracture of distal end of left fibula: She has a left ankle distal fibula fracture without obvious injury to the medial deltoid ligament or medial malleolus. She was able to bear weight on this ankle after the injury. This is therefore a stable ankle injury and does not require surgical fixation. We can plan to treat this nonoperatively in a walking boot. She may weight-bear on this ankle with the boot in place. She does often use ambulatory aids at baseline due to her multiple sclerosis. She will need a platform walker since she will not be able to bear weight through her left wrist; she will need to bear weight through her left elbow. (2) Closed fracture of left distal radius: She has a significantly displaced extra-articular left distal radius fracture. I would recommend surgical fixation of this injury. She is in agreement. Risks, benefits, and alternatives of surgery were explained in detail. The surgical procedure, as well as postoperative recovery and rehabilitation, was also explained in detail. Risks include bleeding; infection; damage to surrounding structures such as nerves, blood vessels, and tendons that run in the area; persistent pain or stiffness; nonunion; malunion; hardware failure; painful prominent hardware requiring removal; or need for further surgery. The patient understands all of this and wishes to proceed with surgery. Informed consent was obtained. History of Present Illness Reason for Consultation: Left wrist and left ankle fractures Attending Physician: Ana Ruiz MD History of Present Illness Ms. Wade is a 63-year-old female who injured her left ankle and left wrist during a fall yesterday. She was up on a stepstool trying to adjust her curtains when she lost her balance and fell. She thinks she injured her left wrist when she impacted it on a cabinet during the fall. She is unsure of how she injured her ankle. She was able to bear weight on her left ankle after the fall, albeit with some pain. She has a history of multiple sclerosis, and often uses a cane for ambulatory support. She also occasionally uses a rollator walker. Allergies Allergy/AdvReac Type Severity Reaction Status Date / Time nickel Allergy Intermediate itchy ears Verified 03/15/23 15:00 with earrings WITH NICKEL -gets infected PER PT Home Medications Medication Instructions Recorded Confirmed Type atorvastatin 40 mg tablet 40 mg PO DAILY 03/15/23 03/15/23 History cholecalciferol (vitamin D3) 25 1,000 unit PO DAILY 03/15/23 03/15/23 History mcg (1,000 unit) capsule (Vitamin D3) clonazepam 0.5 mg tablet 0.5 mg PO HS 03/15/23 03/15/23 History cyanocobalamin (vitamin B-12) 1,000 mcg PO QPM 03/15/23 03/15/23 History 1,000 mcg tablet (Vitamin B-12) docusate sodium 100 mg tablet 100 mg PO BID PRN Constipation 03/15/23 03/15/23 History duloxetine 30 mg capsule,delayed 30 mg PO DAILY 03/15/23 03/15/23 History release duloxetine 60 mg capsule,delayed 60 mg PO DAILY 03/15/23 03/15/23 History release gabapentin 400 mg capsule 400 mg PO QID 03/15/23 03/15/23 History liothyronine 5 mcg tablet 12.5 mcg PO DAILY 03/15/23 03/15/23 History magnesium oxide 400 mg PO QPM 03/15/23 03/15/23 History Patient History Medical History Tobacco use Depression Hyperlipidemia Multiple sclerosis Surgical History Hx of tonsillectomy History of cholecystectomy Family History Other Breast cancer Cancer Diabetes Heart disease Social History Smoking Status: Current every day smoker Tobacco Type: Cigarettes Cigarettes Per Day: 0.5-1ppd; Second Hand Exposure: Yes; Do You Dip or Chew Tobacco: No; Tobacco Cessation Education Requested by Patient: No Hx Alcohol Use: Yes Alcohol type: beer, wine and hard liquor Hx Substance Use: No Preferred Language: Norwegian Communication Ability: Effective Electrical Sign Wirer Required: No Beliefs That Will Affect Care: None marital status: Current Living Situation: Spouse Other Information That Helps Us Care for You: No Feels Safe at Home: Yes Safety Concerns: Feels Safe At This Time Assistive Devices: Cane Physical Exam Physical Exam: Examination of the left wrist reveals a short arm splint in place. Compartments are soft and compressible. Motor and sensory function is intact in the median, ulnar, and radial nerve distributions. Examination of the left ankle reveals a short leg splint in place. Solomon wrap and splint were removed. She denies any significant tenderness to palpation along the medial malleolus or medial deltoid ligament. The vast majority of her pain is on the lateral aspect of her ankle around the distal fibula. Motor and sensory functions intact distally in the superficial peroneal, deep peroneal, and tibial nerve distributions. Compartments are soft and compressible. Results & Data Vital Signs (Past 12 Hours) Vital Signs Temp Pulse Pulse Resp BP Pulse Ox O2 Del Method 03/16/23 08:03 36.6 C 70 16 132/84 91 Room Air 03/16/23 07:55 73 03/16/23 04:17 36.6 C 74 16 112/62 93 Room Air 03/15/23 23:41 36.9 C 84 18 117/76 90 Room Air 03/15/23 22:00 71 Diagnostic Findings X-rays of the left ankle obtained in the emergency room yesterday were independently interpreted by me. They show a minimally displaced oblique fracture of the distal fibula. No medial clear space widening or lateral talar shift. No obvious soft tissue swelling on the medial side of the ankle. X-rays of the left wrist obtained emergency room yesterday were independently interpreted by me. They show a mildly comminuted and moderately displaced distal radius fracture. Fracture looks largely extra-articular, with no obvious fracture lines extending into the joint surface. There is about 30 degrees of dorsal angulation of the distal articular surface with associated loss of radial height. (1) Closed fracture of distal end of left fibula Encounter type: initial encounter Fracture morphology: other fracture Qualified Code(s): S82.832A - Other fracture of upper and lower end of left fibula, initial encounter for closed fracture (2) Closed fracture of left distal radius Encounter type: initial encounter Fracture morphology: other intra-articular Qualified Code(s): S52.572A - Other intraarticular fracture of lower end of left radius, initial encounter for closed fracture
[2023-03-16] MEDS: GABAPENTIN 400 MG CAP PO SCH ×4 (09:54→21:52)
[2023-03-16] MEDS: DULoxetine HCL 60 MG CAP PO SCH (09:54)
[2023-03-16] MEDS: DULoxetine HCL 30 MG CAP PO SCH (09:55)
[2023-03-16] MEDS: LIOTHYRONINE SODIUM 5 MCG TAB PO SCH (09:55)
[2023-03-16] MEDS: CHOLECALCIFEROL 1,000 UNITS 25 MCG TAB PO SCH (09:58)
[2023-03-16] MEDS: ATORVASTATIN 40 MG TAB PO SCH (09:58)
[2023-03-16] MEDS: NICOTINE 21 MG/24 HR TDSY TD SCH (10:05)
[2023-03-16] MEDS: LORATADINE 10 MG TAB PO SCH (11:47)
--- NOTE | 2023-03-16 12:26 | Hospitalist Progress Note ---
Date of Service March 16, 2023 Assessment & Plan (1) Closed fracture of distal end of left fibula: Plan: Left ankle xray: Acute oblique minimally displaced fracture of the distal shaft of the left fibula Nondisplaced fracture of the left fibula Can be around weight Appreciate Ortho input and does not require any surgery (2) Closed fracture of left distal radius: Plan: Patient is 63 y/o female with PMH MS, depression, anxiety, HLD, tobacco use presented to ER with complaint of fall off step stool and left wrist and left ankle pain Left wrist xray: Mildly displaced fracture of the distal radius with associated soft tissue swelling. In ER splints applied to left wrist and left ankle Scheduled Tylenol. Toradol, oxycodone prn pain. Will monitor pain control response and consider adding additional agent if needed. Patient unfortunately had hypotensive episode after morphine 4mg in ER. NPO midnight Appreciate Ortho input and recommendation for surgery-left distal radius open reduction internal fixation this afternoon Patient remains minimally painful (3) Chest pain: Plan: In ER initial vitals were stable and initial HS troponin: 2.7. Was morphine 4 mg IV and after had BP of 60/34, pulse in the 40s with near syncopal episode. Patient was placed in Trendelenburg position and given 1L NSS with pulse in 60s-70s and BP up to 124/89. After this hypotensive episode patient developed epigastric discomfort described as "burning" sensation that radiated across lower chest. Patient states symptoms improved during ER course and then had recurrent episode of discomfort At time of my evaluation CP symptoms resolved and vitals stable. EKG: sinus bradycardia, rate 59, no ST elevation per my interpretation CXR: no acute cardiopulmonary findings Repeat HS troponin 2.9 and serial troponins were negative for any ACS Episode likely secondary to hypotensive episode. R/O ACS. R Echo of the heart showed-mild concentric LVH without any wall motion abnormalities, EF 55 to 60%, RV is normal in size and function, right atrial size is normal, there is mild tricuspid regurgitation, there is single tricuspid regurgitation envelop obtained that suggests severe pulmonary hypertension with estimated pulmonary artery systolic pressure of [address] of the chest to rule out any pulmonary embolism/fat embolism given very high pulmonary pressures Patient remains free from any chest pain, palpitation or shortness of breath (4) Multiple sclerosis: Plan: Continue gabapentin, Cymbalta for her neuropathic pain Follows with [facility], Dr Roa No acute flare of multiple sclerosis (5) Hyperlipidemia: Plan: Continue atorvastatin (6) Depression: Plan: Depression, Anxiety Continue Cymbalta, clonazepam, Cytomel Follows with psychiatry DVT Prophylaxis SCDs Full Code as per discussion with pt Follows with Dr Love for routine care Admission and Anticipated Discharge Date Admission Date: March 16, 2023 Subjective 03/16/2023 The patient was seen and examined in medical telemetry unit She has been complaining of pain in the left wrist and also and left foot Denies any chest pain, shortness of breath or palpitation No nausea no vomiting Review of Systems Review of Systems: All systems reviewed and are unremarkable except as noted below Musculoskeletal: Pain in the left wrist and also left lower leg Physical Exam Physical Exam: Lying in bed comfortably Constitutional: well developed, well nourished and average body habitus; not ill appearing Eyes: PERRL, conjunctivae normal, anicteric sclerae ENMT: external ear and nose normal, oropharynx normal Neck: trachea midline, no thyromegaly Respiratory: no respiratory distress Auscultation: lungs clear to auscultation bilaterally Cardiovascular: Rate/Rhythm: regular rate and regular rhythm; not tachycardic Heart Sounds: normal S1 and normal S2; no murmur Extremities: no edema Gastrointestinal (Abdomen): Inspection/Auscultation: normal bowel sounds; abdomen not distended Percussion/Palpation: abdomen soft; abdomen nontender Musculoskeletal: Left wrist is painful with movement and left foot is bandaged with a nondispl aced fracture of the fibula Neurologic: normal touch/pain/proprioception and moves all extremities; no focal motor deficits Lymphatic: no cervical or axillary lymphadenopathy Results & Data Results & Data Vital Signs (Past 12 Hours) Vital Signs Temp Pulse Pulse Resp BP Pulse Ox O2 Del Method 03/16/23 08:03 36.6 C 70 16 132/84 91 Room Air 03/16/23 07:55 73 03/16/23 04:17 36.6 C 74 16 112/62 93 Room Air Laboratory Results Short CBC 03/15/23 03/16/23 Range/Units 11:25 05:46 WBC 8.03 10.31 (4.8-10.8) K/ul Hgb 15.9 13.5 (12.0-16.0) g/dl Hct 47.5 H 41.1 (37.0-47.0) % Plt Count 345 279 (130-400) K/uL BMP 03/15/23 03/16/23 11:25 05:46 Sodium 139 139 Potassium 3.9 4.3 Chloride 107 110 H Carbon Dioxide 26 24 BUN 18 16 Creatinine 0.85 0.82 Glucose 105 H 80 Calcium 9.5 8.7 Liver Function 03/15/23 Range/Units 11:25 Total Bilirubin 1.2 H (0.2-1.0) mg/dl AST 13 (13-39) U/L ALT 13 (7-52) U/L Alkaline Phosphatase 74 (34-104) U/L Albumin 4.4 (3.4-5.0) gm/dl Medications Administered Current Inpatient Medications Acetaminophen (Acetaminophen 500 Mg Tab) 1,000 mg PO Q8 BEN Stop: 04/14/23 21:59 Last Admin: 03/16/23 05:54 Dose: 1,000 mg Atorvastatin Calcium (Atorvastatin 40 Mg Tab) 40 mg PO DAILY BEN Stop: 04/15/23 08:59 Last Admin: 03/16/23 09:58 Dose: 40 mg Clonazepam (Clonazepam 0.5 Mg Tab) 0.5 mg PO HS BEN Stop: 04/14/23 20:59 Last Admin: 03/15/23 20:29 Dose: 0.5 mg Cyanocobalamin (Cyanocobalamin (B-12) 500 Mcg Tablet) 1,000 mcg PO QPM BEN Stop: 04/14/23 20:59 Last Admin: 03/15/23 20:30 Dose: 1,000 mcg Docusate Sodium (Docusate Sodium 100 Mg Cap) 100 mg PO BID PRN PRN Reason: Constipation Stop: 04/14/23 16:58 Duloxetine HCl (Duloxetine Hcl 30 Mg Cap) 30 mg PO DAILY BEN Stop: 04/15/23 08:59 Last Admin: 03/16/23 09:55 Dose: 30 mg Duloxetine HCl (Duloxetine Hcl 60 Mg Cap) 60 mg PO DAILY BEN Stop: 04/15/23 08:59 Last Admin: 03/16/23 09:54 Dose: 60 mg Gabapentin (Gabapentin 400 Mg Cap) 400 mg PO QID BEN Stop: 04/14/23 16:59 Last Admin: 03/16/23 09:54 Dose: 400 mg Ketorolac Tromethamine (Ketorolac Tromethamine 15 Mg/Ml Vial) 15 mg IV Q6H PRN PRN Reason: Moderate Pain (Scale 4, 5, 6) Stop: 03/20/23 16:53 Last Admin: 03/16/23 10:14 Dose: 15 mg Liothyronine Sodium (Liothyronine Sodium 5 Mcg Tab) 12.5 mcg PO DAILY [facility] Stop: 04/15/23 08:59 Last Admin: 03/16/23 09:55 Dose: 12.5 mcg Loratadine (Loratadine 10 Mg Tab) 10 mg PO QAM [facility] Stop: 04/15/23 10:44 Last Admin: 03/16/23 11:47 Dose: 10 mg Miscellaneous (Remove Nicoderm Patch) 1 each N/A DAILY@0859 [facility] Stop: 04/15/23 08:58 Last Admin: 03/16/23 10:05 Dose: 1 each Nicotine (Nicotine 21 Mg/24 Hr Tdsy) 21 mg TD QAM [facility] Stop: 04/14/23 16:53 Last Admin: 03/16/23 10:05 Dose: Not Given Ondansetron HCl (Ondansetron Inj 2 Mg/Ml 2 Ml Vial) 4 mg IV Q6H PRN PRN Reason: Nausea Stop: 04/14/23 16:53 Oxycodone HCl (Oxycodone Hcl Ir 5 Mg Tab (Immediate Release)) 5 mg PO Q6H PRN PRN Reason: Severe Pain (Scale 7, 8, 9,10) Stop: 03/29/23 16:53 Polyethylene Glycol (Polyethylene (Miralax) 17 Gm Pack) 17 gm PO DAILY PRN PRN Reason: Constipation Stop: 04/14/23 16:53 Vitamin D (Cholecalciferol 1,000 Units 25 Mcg Tab) 1,000 units PO DAILY [facility] Stop: 04/15/23 08:59 Last Admin: 03/16/23 09:58 Dose: 1,000 units (1) Closed fracture of distal end of left fibula Encounter type: initial encounter Fracture morphology: other fracture Qualified Code(s): S82.832A - Other fracture of upper and lower end of left fibula, initial encounter for closed fracture (2) Closed fracture of left distal radius Encounter type: initial encounter Fracture morphology: other intra-articular Qualified Code(s): S52.572A - Other intraarticular fracture of lower end of left radius, initial encounter for closed fracture
[2023-03-16] MEDS ORDERED: ceFAZolin 2000MG 2,000 MG/15 ML SYR IV ONE (14:01)
[2023-03-16] MEDS ORDERED: ceFAZolin 2,000 MG/15 ML IV PUSH IV ONE (14:03)
[2023-03-16] MEDS ORDERED: ROPIVACAINE 0.5% 5 MG/ML 30 ML VIAL ONE (14:04)
--- NOTE | 2023-03-16 14:05 | Anesthesiology Consultation ---
Date of Service March 16, 2023 Assessment & Plan (1) Encounter for pre-operative examination: Chart Review Chart Review: Acceptable Risk for Surgery History Surgery Operation Date: 03/16/23 08:20 Proposed Procedures p Left Distal Radius Open Reduction Internal Fixation - Rm Dallas M.D. Height/Weight Height: 5 ft 3 in Weight: 75.2 kg Allergies Allergy/AdvReac Type Severity Reaction Status Date / Time nickel Allergy Intermediate itchy ears Verified 03/15/23 15:00 with earrings WITH NICKEL -gets infected PER PT Medications Home Medications Medication Instructions Recorded Confirmed Last Taken atorvastatin 40 mg tablet 40 mg PO DAILY 03/15/23 03/15/23 03/14/23 cholecalciferol (vitamin D3) 25 1,000 unit PO DAILY 03/15/23 03/15/23 03/14/23 mcg (1,000 unit) capsule (Vitamin D3) clonazepam 0.5 mg tablet 0.5 mg PO HS 03/15/23 03/15/23 03/14/23 cyanocobalamin (vitamin B-12) 1,000 mcg PO QPM 03/15/23 03/15/23 03/14/23 1,000 mcg tablet (Vitamin B-12) docusate sodium 100 mg tablet 100 mg PO BID PRN Constipation 03/15/23 03/15/23 Unknown duloxetine 30 mg capsule,delayed 30 mg PO DAILY 03/15/23 03/15/23 03/14/23 release duloxetine 60 mg capsule,delayed 60 mg PO DAILY 03/15/23 03/15/23 03/14/23 release gabapentin 400 mg capsule 400 mg PO QID 03/15/23 03/15/23 03/14/23 liothyronine 5 mcg tablet 12.5 mcg PO DAILY 03/15/23 03/15/23 03/14/23 magnesium oxide 400 mg PO QPM 03/15/23 03/15/23 03/14/23 Active Medications Generic Name Dose Route Start Last Admin Trade Name Freq PRN Reason Stop Dose Admin Acetaminophen 1,000 mg 03/15/23 22:00 03/16/23 05:54 Acetaminophen 500 Mg Tab PO 04/14/23 21:59 1,000 mg Q8 BEN Administration Atorvastatin Calcium 40 mg 03/16/23 09:00 03/16/23 09:58 Atorvastatin 40 Mg Tab PO 04/15/23 08:59 40 mg DAILY BEN Administration Clonazepam 0.5 mg 03/15/23 21:00 03/15/23 20:29 Clonazepam 0.5 Mg Tab PO 04/14/23 20:59 0.5 mg HS BEN Administration Cyanocobalamin 1,000 mcg 03/15/23 21:00 03/15/23 20:30 Cyanocobalamin (B-12) 500 Mcg Tablet PO 04/14/23 20:59 1,000 mcg QPM BEN Administration Duloxetine HCl 30 mg 03/16/23 09:00 03/16/23 09:55 Duloxetine Hcl 30 Mg Cap PO 04/15/23 08:59 30 mg DAILY BEN Administration Duloxetine HCl 60 mg 03/16/23 09:00 03/16/23 09:54 Duloxetine Hcl 60 Mg Cap PO 04/15/23 08:59 60 mg DAILY BEN Administration Gabapentin 400 mg 03/15/23 17:00 03/16/23 09:54 Gabapentin 400 Mg Cap PO 04/14/23 16:59 400 mg QID BEN Administration Ketorolac Tromethamine 15 mg 03/15/23 16:54 03/16/23 10:14 Ketorolac Tromethamine 15 Mg/Ml Vial IV 03/20/23 16:53 15 mg Q6H PRN Administration Moderate Pain (Scale 4, 5, 6) Liothyronine Sodium 12.5 mcg 03/16/23 09:00 03/16/23 09:55 Liothyronine Sodium 5 Mcg Tab PO 04/15/23 08:59 12.5 mcg DAILY BEN Administration Loratadine 10 mg 03/16/23 10:45 03/16/23 11:47 Loratadine 10 Mg Tab PO 04/15/23 10:44 10 mg QAM BEN Administration Miscellaneous 1 each 03/16/23 08:59 03/16/23 10:05 Remove Nicoderm Patch N/A 04/15/23 08:58 1 each DAILY@0859 BEN Administration Nicotine 21 mg 03/15/23 16:54 03/16/23 10:05 Nicotine 21 Mg/24 Hr Tdsy TD 04/14/23 16:53 Not Given QAM BEN Vitamin D 1,000 units 03/16/23 09:00 03/16/23 09:58 Cholecalciferol 1,000 Units 25 Mcg Tab PO 04/15/23 08:59 1,000 units DAILY BEN Administration NPO Date Last Intake of Fluids: 03/15/23 Time Last Intake of Fluids: 18:30 Date Last Intake of Solids: 03/15/23 Time Last Intake of Solids: 18:30 Past Medical History Medical History Tobacco use Depression Hyperlipidemia Multiple sclerosis Past Family History Family History Other Breast cancer Cancer Diabetes Heart disease Past Surgical History Surgical History Hx of tonsillectomy History of cholecystectomy Social History Smoking Status: Current every day smoker Smoking cigarettes per day: 0.5-1ppd Do You Dip or Chew Tobacco: No Hx Alcohol Use: Yes Alcohol type: beer, wine and hard liquor alcohol intake frequency: holidays/special occasions only Hx Substance Use: No Physical Exam Vital Signs Last Vital Signs Temp 37.1 C 03/16/23 13:00 Pulse 73 03/16/23 13:00 Resp 18 03/16/23 13:00 BP 136/81 03/16/23 13:00 Pulse Ox 93 03/16/23 13:00 O2 Del Method Room Air 03/16/23 13:00 O2 Flow Rate 4 03/15/23 12:46 Testing Laboratory Results 03/16/23 05:46 03/16/23 05:46 Electrocardiogram Date: 03/15/23 Findings: + SB @ (59) no change from prior
[2023-03-16] MEDS ORDERED: fentaNYL citrate PF 100 MCG/2 ML VIAL ONE (14:07)
[2023-03-16] MEDS ORDERED: MIDAZOLAM HCL 1 MG/ML 2ML VIAL ONE (14:07)
[2023-03-16] MEDS ORDERED: LIDOCAINE 2% 2 ML VIAL/AMP(20MG/ML) INFIL ONE (14:11)
[2023-03-16] MEDS ORDERED: PROPOFOL IV EMULSION 10 MG/ML 20 ML VIAL IV ONE ×2 (14:11→15:49)
[2023-03-16] MEDS ORDERED: ePHEDrine sulfate 50 MG/ML AMP IV PRN (14:15)
[2023-03-16] MEDS ORDERED: ATROPINE SULFATE 0.1 MG/ML 10ML SYR IV PRN (14:15)
[2023-03-16] MEDS ORDERED: ONDANSETRON INJ 2 MG/ML 2 ML VIAL IV PRN ×2 (14:16→16:20)
[2023-03-16] MEDS ORDERED: KETOROLAC TROMETHAMINE 15 MG/ML VIAL IV PRN (14:16)
[2023-03-16] MEDS ORDERED: PROMETHAZINE HCL 6.25 MG in SODIUM CHLORIDE 0.9% 50 ML IV PRN (14:16)
[2023-03-16] MEDS ORDERED: fentaNYL citrate PF 100 MCG/2 ML VIAL IV PRN (14:16)
[2023-03-16] MEDS ORDERED: BUPIVACAINE 0.5 % 5 MG/1 ML MPF 30ML VIAL ONE (14:36)
[2023-03-16] MEDS ORDERED: LIDOCAINE 1% LOCAL 20 ML VIAL ONE (14:37)
[2023-03-16] MEDS ORDERED: ONDANSETRON INJ 2 MG/ML 2 ML VIAL ONE (14:55)
[2023-03-16] MEDS ORDERED: DEXAMETHASONE SOD INJ 4 MG/ML VIAL ONE (14:55)
[2023-03-16] MEDS ORDERED: ePHEDrine sulfate 50 MG/5 ML SYR ONE (15:02)
--- NOTE | 2023-03-16 15:51 | Operative Report ---
Post Operative Report Pre & Post Diagnosis Operation Date: 03/16/23 08:20 Pre-Op Diagnosis: Left wrist extra-articular distal radius fracture Post-Op Diagnosis: Left wrist extra-articular distal radius fracture I identified the patient and participated in the time-out.: Yes Procedure Operation Date: 03/16/23 08:20 Actual Procedures Left wrist open reduction and internal fixation of extra-articular distal radius fracture (49348) - Rm Dallas M.D. Surgeon Rm Dallas MD [employer] Ru Paige PA-C Estimated Blood Loss 15 Findings Consistent with Post-Op Diagnosis Specimens None Drains None Anesthesia Type MAC Regional Disposition Disposition: Recovery Room Indications Ms. Wade is a 63-year-old female who injured her left wrist when she fell off of a stepstool yesterday. History, clinical exam, and imaging were consistent with the above diagnosis. Risks, benefits, and alternatives of surgery were explained in detail. The patient understood all this and wished to proceed. Description of Procedure Patient was identified in the preoperative holding area. Operative extremity was marked. Regional blockade was given by the Anesthesia Staff. Patient was then brought back to the operating room and MAC anesthesia was induced without complication. Appropriate weight-based dose of Ancef was infused intravenously for antibiotic prophylaxis. Tourniquet was placed on the left upper arm. The arm was then prepped and draped in a standard sterile fashion using Chlorhexidine prep. The arm was then exsanguinated with an Esmarch, and the tourniquet was inflated. Longitudinal incision was made directly over the flexor carpi radialis. The superficial and deep portions of the FCR tendon sheath were then opened longitudinally, and Parona's space was entered. I then made an L-shaped incision along the distal and radial edge of the pronator quadratus and elevated this from radial to ulnar to expose the distal radius fracture site. This was a minimally comminuted and moderately displaced fracture through the distal radial metaphysis. There were no obvious fracture lines extending up into the articular surface. Fracture fragments were mobilized, and reduction maneuver was then performed. K-wire was placed down the radial styloid and across the fracture site to temporarily hold the reduction during plate application. After adequate reduction had been achieved, I then selected an appropriately sized plate from the Arthrex 2.4mm volar distal radius variable-angle locking plate set. The plate was then positioned appropriately on the distal radius and temporarily held in place with a K-wire. I verified proper fracture reduction and plate placement under fluoroscopic imaging. Once I was satisfied with this, I proceeded with screw placement. Locking screws were placed distally with the proximal portion of the plate elevated off of the radial shaft. I then reduced the proximal portion of the plate to the radial shaft to assist in fracture reduction, and non-locking and locking screws were placed into the radial shaft where appropriate. I obtained final fluoroscopic imaging to ensure proper screw length and trajectory, as well as fracture reduction. I also performed a shuck test of the distal radial ulnar joint to ensure that it was stable. I then closed the remnants of the pronator quadratus over top of the plate where possible. Tourniquet was then let down, and hemostasis was achieved with bipolar electrocautery. Wound was thoroughly irrigated with sterile saline. Subcutaneous tissue was closed with 3-0 Vicryl suture, and skin was closed with 4-0 Prolene. Sterile dressings were then applied with Xeroform, sterile gauze, and sterile Webril, followed by a volar plaster splint and Solomon wrap. The drapes were removed, the patient was awakened from anesthesia and taken to the Post Anesthesia Care Unit in stable condition. There were no immediate complications to the procedure. I was present and scrubbed for the entire procedure. Due to the complex nature of the procedure, the entire surgery was performed with the operational assistance of Ru Paige PA-C. The management assistant, under direct supervision, was involved in the performance of all aspects of the surgical procedure including hemostasis, tissue incision and retraction, instrument management, patient positioning, and wound closure. I attest to the content of the Intraoperative Record and any orders documented therein. Any exceptions are noted below.
[2023-03-16] MEDS ORDERED: NALOXONE HCL 0.4 MG/1 ML VIAL/CARP IV PRN (16:20)
[2023-03-16] MEDS ORDERED: MAGNESIUM HYDROXIDE SUSP 30 ML UDC PO PRN (16:20)
[2023-03-16] MEDS ORDERED: bisacodyL 10 MG SUPP PR PRN (16:20)
[2023-03-16] MEDS ORDERED: METOCLOPRAMIDE HCL INJ 5 MG/ML 2 ML VIAL IV PRN (16:20)
--- NOTE | 2023-03-16 16:34 | Anesthesiology Progress Note ---
Date of Service March 16, 2023 Anesthesia Post Procedure Vital Signs Vital Signs: Temp Pulse Pulse Pulse Resp BP Pulse Ox 03/16/23 16:30 97.7 F 84 14 137/75 93 03/16/23 16:20 80 16 135/87 94 03/16/23 16:10 86 16 134/74 94 03/16/23 16:00 97.2 F L 90 18 138/73 98 03/16/23 13:00 98.8 F 73 18 136/81 93 03/16/23 12:18 97.9 F 71 16 124/80 92 03/16/23 08:03 97.9 F 70 16 132/84 91 03/16/23 07:55 73 03/16/23 04:17 97.9 F 74 16 112/62 93 03/15/23 23:41 98.4 F 84 18 117/76 90 03/15/23 22:00 71 03/15/23 17:17 98.1 F 61 18 131/76 96 03/15/23 17:16 98.1 F 61 18 131/76 96 03/15/23 17:10 83 O2 Del Method 03/16/23 16:30 Room Air 03/16/23 16:20 Room Air 03/16/23 16:10 Room Air 03/16/23 16:00 Room Air 03/16/23 13:00 Room Air 03/16/23 12:18 Room Air 03/16/23 08:03 Room Air 03/16/23 07:55 03/16/23 04:17 Room Air 03/15/23 23:41 Room Air 03/15/23 22:00 03/15/23 17:17 Room Air 03/15/23 17:16 Room Air 03/15/23 17:10 Transfer of Care Handoff Completed per policy Notes Mental Status: alert / awake / arousable and participated in evaluation Patient Amnestic to Procedure: Yes Nausea / Vomiting: adequately controlled Pain: adequately controlled Airway Patency, RR, SpO2: stable & adequate BP & HR: stable & adequate Hydration State: stable & adequate Anesthetic Complications: no major complications apparent and Pt Satisfied with anesthetic care
--- NOTE | 2023-03-16 16:38 | Fluoroscopy Report ---
FL wrist LT 2V CLINICAL HISTORY: ORIF LEFT DISTAL WRIST COMPARISON STUDY: None. FLUOROSCOPY TIME: 42nd FLUOROSCOPY IMAGES: 3 Exposure dose: Not obtained. FINDINGS: Cortical plate and screws transfixing the distal radius fracture. The hardware appears inta ct. Alignment appears anatomic. IMPRESSION: Fluoroscopic assistance as above. ACT 112: Negative or not required by law. Electronically signed by: Manuel Lanier M.D. 03/16/2023 4:36 PM
[2023-03-16] MEDS: SODIUM CHLORIDE 0.9% 1,000 ML IV SCH (17:04)
[2023-03-16] MEDS ORDERED: SENNA 8.6 MG TAB PO SCH (21:00)
[2023-03-16] MEDS ORDERED: OPTIRAY 320 500ml IV ONE (21:17)
[2023-03-16] MEDS: clonazePAM 0.5 MG TAB PO SCH (21:48)
[2023-03-16] MEDS: DOCUSATE SODIUM 100 MG CAP PO SCH (21:51)
[2023-03-16] MEDS: CYANOCOBALAMIN (B-12) 500 MCG TABLET PO SCH (21:52)
[2023-03-16] MEDS: ceFAZolin 2000MG 2,000 MG/15 ML SYR IV SCH (21:53)
--- NOTE | 2023-03-16 22:58 | CT Scan Report ---
Exam(s): CTA CHEST IV Amt: 112 ml opti 320 EXAM: CT Angiography Chest With Intravenous Contrast CLINICAL HISTORY: Reason for exam: PE. TECHNIQUE: Axial computed tomographic angiography images of the chest with intravenous contrast. Automated exposure control was utilized for the study. A dose lowering technique was utilized adhering to the principles of ALARA. MIP reconstructed images were created and reviewed. COMPARISON: No relevant prior studies available. FINDINGS: Pulmonary arteries: Unremarkable. No pulmonary embolism. Aorta: No acute findings. No thoracic aortic aneurysm. Lungs: Mild aspiration pneumonia at the left lung base. No mass. Pleural space: Unremarkable. No pleural effusion or pneumothorax. Heart: Cardiomegaly. No significant pericardial effusion. No evidence of RV dysfunction. Bones/joints: No acute fracture. No dislocation. Soft tissues: Unremarkable. Lymph nodes: Prominent lymph nodes in the prevascular station measure approximately 2.1 x 1.6 cm and 2.5 x 1.9 cm. Gallbladder and bile ducts: Cholecystectomy. IMPRESSION: 1. No pleural effusion or pneumothorax. 2. Mild aspiration pneumonia at the left lung base. 3. Cholecystectomy. 4. Prominent lymph nodes in the prevascular station measure approximately 2.1 x 1.6 cm and 2.5 x 1.9 cm. Electronically signed by: Anthony Burns MD 03/16/23 22:57 PM
[2023-03-17] MEDS: SODIUM CHLORIDE 0.9% 1,000 ML IV SCH (03:43)
[2023-03-17] MEDS: ceFAZolin 2000MG 2,000 MG/15 ML SYR IV SCH (06:30)
[2023-03-17] MEDS: ACETAMINOPHEN 500 MG TAB PO SCH ×2 (06:34→13:10)
[2023-03-17] MEDS: KETOROLAC TROMETHAMINE 15 MG/ML VIAL IV PRN (07:43)
[2023-03-17] MEDS: GABAPENTIN 400 MG CAP PO SCH ×2 (08:01→13:10)
[2023-03-17] MEDS: DULoxetine HCL 60 MG CAP PO SCH (08:01)
[2023-03-17] MEDS: CHOLECALCIFEROL 1,000 UNITS 25 MCG TAB PO SCH (08:02)
[2023-03-17] MEDS: DOCUSATE SODIUM 100 MG CAP PO SCH (08:02)
[2023-03-17] MEDS: ATORVASTATIN 40 MG TAB PO SCH (08:02)
[2023-03-17] MEDS: DULoxetine HCL 30 MG CAP PO SCH (08:02)
[2023-03-17] MEDS: LIOTHYRONINE SODIUM 5 MCG TAB PO SCH (08:03)
[2023-03-17] MEDS: LORATADINE 10 MG TAB PO SCH (08:03)
[2023-03-17] MEDS: NICOTINE 21 MG/24 HR TDSY TD SCH (08:04)
[2023-03-17 08:10] LABS: Basophils # (auto) 0.02 K/uL (0.00-0.20); Basophils % (auto) 0.2 %; Eosinophils # (auto) 0.01 K/uL (0.00-0.50); Eosinophils % (auto) 0.1 %; Hematocrit (blood only) 35.5 % (37.0-47.0); Hemoglobin 12.1 g/dl (12.0-16.0); Immature Granulocytes # (auto) 0.06 K/uL (0.01-0.20); Immature Granulocytes % (auto) 0.5 %; Lymphocytes # (auto) 2.01 K/uL (1.20-3.40); Mean Corpuscular Hemoglobin 28.7 pg (25.0-34.0); Mean Corpuscular Hgb Conc 34.1 g/dL (32.0-36.0); Mean Corpuscular Volume 84.3 fL (80.0-100.0); Mean Platelet Volume 8.7 fL (9.4-12.4); Monocytes # (auto) 0.86 K/uL (0.11-0.59); Monocytes % (auto) 6.8 %; Neutrophils # (auto) 9.64 K/uL (1.40-6.50); Neutrophils % (auto) 76.4 %; Platelet Count 269 K/uL (130-400); RDW Coefficient of Variation 13.1 % (11.5-14.5); RDW Standard Deviation 39.9 fL (36.4-46.3); Red Blood Count 4.21 M/uL (4.20-5.40)
--- NOTE | 2023-03-17 08:17 | Orthopedic Progress Note ---
Date of Service March 17, 2023 Assessment & Plan (1) Closed fracture of left distal radius: Plan: 63 yo female stable POD #1 s/p ORIF left distal radius, nonop treatment left ankle fracture 1. Med management 2. DVT prophylaxis- per medicine 3. PT/OT 4. D/C planning- home w/ OPPT, ortho to sign off, follow-up instructions in d/c instructions Admission and Anticipated Discharge Date Admission Date: March 16, 2023 Subjective Pt resting in bed, pain controlled, denies complaints Physical Exam Physical Exam: Splint/dressing in place left wrist, mild finger swelling, fingers still feel tingly; Cam boot in place left ankle Results & Data Vital Signs (Past 12 Hours) Vital Signs Temp Pulse Pulse Resp BP Pulse Ox O2 Del Method 03/17/23 07:51 36.6 C 72 16 112/69 96 Room Air 03/17/23 06:49 65 03/17/23 04:53 36.6 C 101 H 18 103/65 94 Room Air 03/17/23 00:34 91 H 03/16/23 23:23 37.1 C 83 17 100/66 93 Room Air 03/16/23 20:21 36.7 C 97 H 17 124/76 92 Room Air Laboratory Results 03/17/23 Range/Units 07:45 WBC 12.60 H (4.8-10.8) K/ul RBC 4.21 (4.20-5.40) M/uL Hgb 12.1 (12.0-16.0) g/dl Hct 35.5 L (37.0-47.0) % MCV 84.3 (80.0-100.0) fL MCH 28.7 (25.0-34.0) pg MCHC 34.1 (32.0-36.0) g/dL RDW Std Deviation 39.9 (36.4-46.3) fL RDW Coeff of Todd 13.1 (11.5-14.5) % Plt Count 269 (130-400) K/uL MPV 8.7 L (9.4-12.4) fL Immature Gran % (Auto) 0.5 % Neut % (Auto) 76.4 % Lymph % (Auto) 16.0 % Cameron % (Auto) 6.8 % Eos % (Auto) 0.1 % Baso % (Auto) 0.2 % Neut # (Auto) 9.64 H (1.40-6.50) K/uL Lymph # (Auto) 2.01 (1.20-3.40) K/uL Cameron # (Auto) 0.86 H (0.11-0.59) K/uL Eos # (Auto) 0.01 (0.00-0.50) K/uL Baso # (Auto) 0.02 (0.00-0.20) K/uL Immature Gran # (Auto) 0.06 (0.01-0.20) K/uL Sodium Pending Potassium Pending Chloride Pending Carbon Dioxide Pending Anion Gap Pending BUN Pending Creatinine Pending Est Cr Clr Drug Dosing Pending Est GFR ( Amer) Pending Est GFR (Non-Af Amer) Pending BUN/Creatinine Ratio Pending Glucose Pending Calcium Pending (1) Closed fracture of left distal radius Encounter type: initial encounter Fracture morphology: other intra-articular Qualified Code(s): S52.572A - Other intraarticular fracture of lower end of left radius, initial encounter for closed fracture
[2023-03-17 08:29] LABS: BUN Creatinine Ratio 15.7 (10-20); Calcium 8.1 mg/dl (8.6-10.3); Est GFR (African American) 87.6 ml/min; Est GFR (Non-African American) 75.6 ml/min
[2023-03-17] MEDS ORDERED: MULTIVITAMIN TAB PO SCH (09:00)
[2023-03-17] MEDS ORDERED: ASPIRIN 81 MG ECTAB PO SCH (12:00)
--- NOTE | 2023-03-17 13:44 | Hospitalist Progress Note ---
Date of Service March 17, 2023 Assessment & Plan (1) Closed fracture of distal end of left fibula: Plan: Left ankle xray: Acute oblique minimally displaced fracture of the distal shaft of the left fibula Nondisplaced fracture of the left fibula Can be around weight Appreciate Ortho input and does not require any surgery Minimal pain and symptoms in left upper extremity (2) Closed fracture of left distal radius: Plan: Patient is 63 y/o female with PMH MS, depression, anxiety, HLD, tobacco use presented to ER with complaint of fall off step stool and left wrist and left ankle pain Left wrist xray: Mildly displaced fracture of the distal radius with associated soft tissue swelling. In ER splints applied to left wrist and left ankle Scheduled Tylenol. Toradol, oxycodone prn pain. Will monitor pain control response and consider adding additional agent if needed. Patient unfortunately had hypotensive episode after morphine 4mg in ER. NPO midnight Appreciate Ortho input and recommendation for surgery-left distal radius open reduction internal fixation this afternoon Patient remains minimally painful Has a walking boot in place and has been getting physical therapy-commended home She wants to go home and the family members also to take her home She will have home health nurse to come to assist (3) Chest pain: Plan: In ER initial vitals were stable and initial HS troponin: 2.7. Was morphine 4 mg IV and after had BP of 60/34, pulse in the 40s with near syncopal episode. Patient was placed in Trendelenburg position and given 1L NSS with pulse in 60s- 70s and BP up to 124/89. After this hypotensive episode patient developed epigastric discomfort described as "burning" sensation that radiated across lo wer chest. Patient states symptoms improved during ER course and then had recurrent episode of discomfort At time of my evaluation CP symptoms resolved and vitals stable. EKG: sinus bradycardia, rate 59, no ST elevation per my interpretation CXR: no acute cardiopulmonary findings Repeat HS troponin 2.9 and serial troponins were negative for any ACS Episode likely secondary to hypotensive episode. R/O ACS. R Echo of the heart showed-mild concentric LVH without any wall motion abnormalities, EF 55 to 60%, RV is normal in size and function, right atrial size is normal, there is mild tricuspid regurgitation, there is single tricuspid regurgitation envelop obtained that suggests severe pulmonary hypertension with estimated pulmonary artery systolic pressure of [address] of the chest to rule out any pulmonary embolism/fat embolism given very high pulmonary pressures Patient remains free from any chest pain, palpitation or shortness of breath Denies any more chest pain and her palpitation (4) Multiple sclerosis: Plan: Continue gabapentin, Cymbalta for her neuropathic pain Follows with [facility], Dr Roa No acute flare of multiple sclerosis (5) Hyperlipidemia: Plan: Continue atorvastatin (6) Depression: Plan: Depression, Anxiety Continue Cymbalta, clonazepam, Cytomel Follows with psychiatry DVT Prophylaxis SCDs Full Code as per discussion with pt Follows with Dr Love for routine care Admission and Anticipated Discharge Date Admission Date: March 16, 2023 Subjective 03/16/2023 The patient was seen and examined in medical telemetry unit She has been complaining of pain in the left wrist and also and left foot Denies any chest pain, shortness of breath or palpitation No nausea no vomiting 03/17/2023 Patient was seen and examined in medical telemetry unit in presence of the family members She denies minimal symptoms-minimal pain and numbness tingling in the left hand and no pain the left foot She has had physical therapy and recommended home Denies any other significant symptom Review of Systems Review of Systems: All systems reviewed and are unremarkable except as noted below Physical Exam Physical Exam: Lying in bed comfortably Constitutional: well developed, well nourished and average body habitus; not ill appearing Eyes: PERRL, conjunctivae normal, anicteric sclerae ENMT: external ear and nose normal, oropharynx normal Neck: trachea midline, no thyromegaly Respiratory: no respiratory distress Auscultation: lungs clear to auscultation bilaterally Cardiovascular: Rate/Rhythm: regular rate and regular rhythm; not tachycardic Heart Sounds: normal S1 and normal S2; no murmur Extremities: no edema Gastrointestinal (Abdomen): Inspection/Auscultation: normal bowel sounds; abdomen not distended Percussion/Palpation: abdomen soft; abdomen nontender Musculoskeletal: Has left wrist in splint and status post surgery. Left foot is in bandage and in walking boot Neurologic: normal touch/pain/proprioception and moves all extremities; no focal motor deficits Lymphatic: no cervical or axillary lymphadenopathy Results & Data Results & Data Vital Signs (Past 12 Hours) Vital Signs Temp Pulse Pulse Resp BP Pulse Ox O2 Del Method 12/22/23 12:05 36.5 C 78 16 116/67 98 Room Air 03/17/23 07:51 36.6 C 72 16 112/69 96 Room Air 03/17/23 06:49 65 03/17/23 04:53 36.6 C 101 H 18 103/65 94 Room Air Laboratory Results Short CBC 03/17/23 Range/Units 07:45 WBC 12.60 H (4.8-10.8) K/ul Hgb 12.1 (12.0-16.0) g/dl Hct 35.5 L (37.0-47.0) % Plt Count 269 (130-400) K/uL BMP 03/17/23 07:45 Sodium 140 Potassium 4.0 Chloride 112 H Carbon Dioxide 25 BUN 13 Creatinine 0.83 Glucose 84 Calcium 8.1 L Medications Administered Current Inpatient Medications Acetaminophen (Acetaminophen 500 Mg Tab) 1,000 mg PO Q8 BEN Stop: 04/14/23 21:59 Last Admin: 03/17/23 13:10 Dose: 1,000 mg Aspirin (Aspirin 81 Mg Ectab) 81 mg PO BID BEN Stop: 04/16/23 11:59 Last Admin: 03/17/23 13:10 Dose: 81 mg Atorvastatin Calcium (Atorvastatin 40 Mg Tab) 40 mg PO DAILY BEN Stop: 04/15/23 08:59 Last Admin: 03/17/23 08:02 Dose: 40 mg Bisacodyl (Bisacodyl 10 Mg Supp) 10 mg WA DAILY PRN PRN Reason: Constipation Stop: 04/15/23 16:19 Clonazepam (Clonazepam 0.5 Mg Tab) 0.5 mg PO HS BEN Stop: 04/14/23 20:59 Last Admin: 03/16/23 21:48 Dose: 0.5 mg Cyanocobalamin (Cyanocobalamin (B-12) 500 Mcg Tablet) 1,000 mcg PO QPM BEN Stop: 04/14/23 20:59 Last Admin: 03/16/23 21:52 Dose: 1,000 mcg Docusate Sodium (Docusate Sodium 100 Mg Cap) 100 mg PO BID PRN PRN Reason: Constipation Stop: 04/14/23 16:58 Docusate Sodium (Docusate Sodium 100 Mg Cap) 100 mg PO BID BEN Stop: 04/15/23 20:59 Last Admin: 03/17/23 08:02 Dose: 100 mg Duloxetine HCl (Duloxetine Hcl 30 Mg Cap) 30 mg PO DAILY [facility] Stop: 04/15/23 08:59 Last Admin: 03/17/23 08:02 Dose: 30 mg Duloxetine HCl (Duloxetine Hcl 60 Mg Cap) 60 mg PO DAILY [facility] Stop: 04/15/23 08:59 Last Admin: 03/17/23 08:01 Dose: 60 mg Gabapentin (Gabapentin 400 Mg Cap) 400 mg PO QID [facility] Stop: 04/14/23 16:59 Last Admin: 03/17/23 13:10 Dose: 400 mg Ketorolac Tromethamine (Ketorolac Tromethamine 15 Mg/Ml Vial) 15 mg IV Q6H PRN PRN Reason: Moderate Pain (Scale 4, 5, 6) Stop: 03/20/23 16:53 Last Admin: 03/17/23 07:43 Dose: 15 mg Liothyronine Sodium (Liothyronine Sodium 5 Mcg Tab) 12.5 mcg PO DAILY [facility] Stop: 04/15/23 08:59 Last Admin: 03/17/23 08:03 Dose: 12.5 mcg Loratadine (Loratadine 10 Mg Tab) 10 mg PO QAM [facility] Stop: 04/15/23 10:44 Last Admin: 03/17/23 08:03 Dose: 10 mg Magnesium Hydroxide (Magnesium Hydroxide Susp 30 Ml Udc) 30 ml PO Q6H PRN PRN Reason: Constipation Stop: 04/15/23 16:19 Metoclopramide HCl (Metoclopramide Hcl Inj 5 Mg/Ml 2 Ml Vial) 10 mg IV Q6H PRN PRN Reason: Nausea And Vomiting Stop: 04/15/23 16:19 Miscellaneous (Remove Nicoderm Patch) 1 each N/A DAILY@0859 [facility] Stop: 04/15/23 08:58 Last Admin: 03/17/23 07:30 Dose: Not Given Multivitamins (Multivitamin Tab) 1 tab PO QAM [facility] Stop: 04/16/23 08:59 Last Admin: 03/17/23 08:02 Dose: 1 tab Naloxone HCl (Naloxone Hcl 0.4 Mg/1 Ml Vial/Carp) 0.1 mg IV Q5M PRN PRN Reason: Oversedation/Resp Depression Stop: 04/15/23 16:19 Nicotine (Nicotine 21 Mg/24 Hr Tdsy) 21 mg TD QAM [facility] Stop: 04/14/23 16:53 Last Admin: 03/17/23 08:04 Dose: Not Given Ondansetron HCl (Ondansetron Inj 2 Mg/Ml 2 Ml Vial) 4 mg IV Q6H PRN PRN Reason: Nausea Stop: 04/14/23 16:53 Ondansetron HCl (Ondansetron Inj 2 Mg/Ml 2 Ml Vial) 4 mg IV Q6H PRN PRN Reason: Nausea And Vomiting Stop: 04/15/23 16:19 Oxycodone HCl (Oxycodone Hcl Ir 5 Mg Tab (Immediate Release)) 5 mg PO Q6H PRN PRN Reason: Severe Pain (Scale 7, 8, 9,10) Stop: 03/29/23 16:53 Polyethylene Glycol (Polyethylene (Miralax) 17 Gm Pack) 17 gm PO DAILY PRN PRN Reason: Constipation Stop: 04/14/23 16:53 Sennosides (Senna 8.6 Mg Tab) 17.2 mg PO HS [facility] Stop: 04/15/23 20:59 Last Admin: 03/16/23 21:50 Dose: 17.2 mg Vitamin D (Cholecalciferol 1,000 Units 25 Mcg Tab) 1,000 units PO DAILY BEN Stop: 04/15/23 08:59 Last Admin: 03/17/23 08:02 Dose: 1,000 units (1) Closed fracture of distal end of left fibula Encounter type: initial encounter Fracture morphology: other fracture Qualified Code(s): S82.832A - Other fracture of upper and lower end of left fibula, initial encounter for closed fracture (2) Closed fracture of left distal radius Encounter type: initial encounter Fracture morphology: other intra-articular Qualified Code(s): S52.572A - Other intraarticular fracture of lower end of left radius, initial encounter for closed fracture
--- NOTE | 2023-03-17 14:18 | Communication Note ---
Date of Service: March 17, 2023 By CMS guidelines, a determination that the admission or continued stay is not medically necessary has been made by a member of the UR committee and flora arredondo for this hospital stay, therefore a Code 44 will be completed and the Inpatient admission will be changed to outpatient.
--- NOTE | 2023-03-17 19:09 | Electrocardiogram Report ---
Test Reason : Blood Pressure : / mmHG Vent. Rate : 059 BPM Atrial Rate : 059 BPM P-R Int : 132 ms QRS Dur : 092 ms QT Int : 466 ms P-R-T Axes : 043 -24 020 degrees QTc Int : 461 ms Sinus bradycardia Cannot rule out Anterior infarct , age undetermined Abnormal ECG When compared with ECG of 13-AUG-2015 10:22, No significant change was found Confirmed by Jose Antonio Saxena ([id number]) on 03/17/2023 7:08:46 PM Referred By: REFERRED SELF Confirmed By:Jose Antonio Saxena
--- NOTE | 2023-03-18 08:13 | Discharge Summary ---
Date of Service March 17, 2023 Admission HPI Per Admitting Provider Patient is 63 y/o female with PMH MS, depression, anxiety, HLD, tobacco use presented to ER with complaint of fall. History obtained from patient, patient's spouse as well as outpatient chart review. Patient states at baseline intermittently will use a cane using her right hand however typically ambulates without assistive devices. States today she was on a 2 foot high stepstool hanging curtains when she struggled with curtain leighton causing her to lose balance and fall onto floor. Patient states she knows she had her left hand/wrist on a wooden chest. She does not think she hit her head. Denies LOC. Patient states was eventually able to get get her self up and into a chair. Complains of pain to left wrist as well as left lower leg and ankle. Denies fever/chills, diaphoresis, N/V/D/C, GROVER, dizziness, syncope, vision changes, neck pain, CP, SOB, orthopnea, palpitations, cough, sore throat, choking, otalgia, rhinorrhea, abdominal pain, paresthesias, weakness, extremity weakness, extremity edema, noemi hes, urinary symptoms. In ER initial vitals were stable and initial HS troponin was negative. She was found to have distal fibular fracture and distal radius fracture. She was given morphine 4 mg IV and after had BP of 60/34, pulse in the 40s with near syncopal episode. Patient was placed in Trendelenburg position and given 1L NSS with pulse in 60s-70s and BP up to 124/89. After this hypotensive episode patient developed epigastric discomfort described as "burning" sensation that radiated across lower chest. Patient states symptoms improved during ER course and then had recurrent episode of discomfort to epigastric and lower chest that she describes as a "hurt" but not severe pain. At time of my evaluation CP symptoms resolved and vitals stable. Admission Exam Per Admitting Provider Physical Exam: General: no acute distress, WDWN Head: normocephalic, atraumatic Eyes: PERRL, EOM's intact, conjunctiva non-injected, anicteric ENT: normal inspection external ears, nose, mucous membranes moist Neck: supple, trachea midline, non-tender, ROM intact Lungs: clear, no respiratory distress, no wheezing/rhonchi/rales CV: RRR, no murmur, no pretibial edema Abd: normal BS, soft, non-tender Ext: no cyanosis, no calf tenderness; LUE: shoulder and elbow normal appearance and non-tender, left wrist with +edema worse over distal radial aspect with tenderness to palpation, sensation to light touch intact, distal pulses intact. LLE: hip, thigh, knee and foot with no tenderness to palpation. +edema left ankle with tenderness to palpation lateral aspect, distal pulses intact, sensation to light touch intact. RUE normal appearance, non-tender and ROM intact. RLE: normal appearance, non- tender and ROM intact. Neuro: A&O x 3, no focal deficits noted, normal affect Skin: warm, dry Principal Diagnosis Left wrist distal radius fracture, left ankle distal fibula fracture Discharge Exam Lying in bed comfortably Constitutional well developed, well nourished and average body habitus; not ill appearing Eyes PERRL, conjunctivae normal, anicteric sclerae ENMT external ear and nose normal, oropharynx normal Neck trachea midline, no thyromegaly Respiratory no respiratory distress Auscultation: lungs clear to auscultation bilaterally Cardiovascular Rate/Rhythm: regular rate and regular rhythm; not tachycardic Heart Sounds: normal S1 and normal S2; no murmur Extremities: no edema Gastrointestinal (Abdomen) Inspection/Auscultation: normal bowel sounds; abdomen not distended Percussion/Palpation: abdomen soft; abdomen nontender Neurologic normal touch/pain/proprioception and moves all extremities; no focal motor deficits Lymphatic no cervical or axillary lymphadenopathy Discharge Data Allergies Allergy/AdvReac Type Severity Reaction Status Date / Time nickel Allergy Intermediate itchy ears Verified 03/15/23 15:00 with earrings WITH NICKEL -gets infected PER PT Consultations 03/15/23 14:08 ED Decision to Admit Stat 03/15/23 16:54 Consult Orthopedic Surgery Routine Procedures Performed Operation Date: 03/16/23 08:20 Actual Procedures p Left Distal Radius Open Reduction Internal Fixation(Left) - Rm Dallas M.D. Ordered Studies 03/16/23 FL wrist LT 2V Routine 03/16/23 11:19 CT for pulmonary embolism PE [CT angio chest PE protocol] Urgent 03/16/23 14:15 US - OR guided needle placemen Routine Hospital Course (1) Closed fracture of distal end of left fibula: Left ankle xray: Acute oblique minimally displaced fracture of the distal shaft of the left fibula Nondisplaced fracture of the left fibula Can be around weight Appreciate Ortho input and does not require any surgery Minimal pain and symptoms in left upper extremity (2) Closed fracture of left distal radius: Patient is 63 y/o female with PMH MS, depression, anxiety, HLD, tobacco use presented to ER with complaint of fall off step stool and left wrist and left ankle pain Left wrist xray: Mildly displaced fracture of the distal radius with associated soft tissue swelling. In ER splints applied to left wrist and left ankle Scheduled Tylenol. Toradol, oxycodone prn pain. Will monitor pain control response and consider adding additional agent if needed. Patient unfortunately had hypotensive episode after morphine 4mg in ER. NPO midnight Appreciate Ortho input and recommendation for surgery-left distal radius open reduction internal fixation this afternoon Patient remains minimally painful Has a walking boot in place and has been getting physical therapy-commended home She wants to go home and the family members also to take her home She will have home health nurse to come to assist (3) Chest pain: In ER initial vitals were stable and initial HS troponin: 2.7. Was morphine 4 mg IV and after had BP of 60/34, pulse in the 40s with near syncopal episode. Pa tient was placed in Trendelenburg position and given 1L NSS with pulse in 60s- 70s and BP up to 124/89. After this hypotensive episode patient developed epigastric discomfort described as "burning" sensation that radiated across lower chest. Patient states symptoms improved during ER course and then had recurrent episode of discomfort At time of my evaluation CP symptoms resolved and vitals stable. EKG: sinus bradycardia, rate 59, no ST elevation per my interpretation CXR: no acute cardiopulmonary findings Repeat HS troponin 2.9 and serial troponins were negative for any ACS Episode likely secondary to hypotensive episode. R/O ACS. R Echo of the heart showed-mild concentric LVH without any wall motion abnormalities, EF 55 to 60%, RV is normal in size and function, right atrial size is normal, there is mild tricuspid regurgitation, there is single tricuspid regurgitation envelop obtained that suggests severe pulmonary hypertension with estimated pulmonary artery systolic pressure of [address] of the chest to rule out any pulmonary embolism/fat embolism given very high pulmonary pressures Patient remains free from any chest pain, palpitation or shortness of breath Denies any more chest pain and her palpitation (4) Multiple sclerosis: Continue gabapentin, Cymbalta for her neuropathic pain Follows with [facility], Dr Roa No acute flare of multiple sclerosis (5) Hyperlipidemia: Continue atorvastatin (6) Depression: Depression, Anxiety Continue Cymbalta, clonazepam, Cytomel Follows with psychiatry DVT Prophylaxis SCDs Full Code as per discussion with pt Follows with Dr Love for routine care Total Time Total Time Spent Total Time Spent (In Minutes): 35 minutes Discharge Plan Discharge Items Patient Disposition: Home - Home Health Services Reason For Visit: FIBULA FX, CP Discharge Diagnosis: Left wrist distal radius fracture, left ankle distal fibula fracture Condition on Discharge: Fair Activity: Per Instructions section Non-emergency contact: Surgeon Call non-emergency contact if: your pain is not controlled, your temperature is above 101.5, your wound has increased redness and your wound has increased drainage Follow-up/Referrals: Key Love MD [Primary Care Provider] - (Date & Time 03/21/2023 10:00 AM Provider Key Love MD Department General Internal Medicine [facility] ) Rm Dallas M.D. [Physician] - Diet: Regular Addtl Attending Provider Instructions: Please take precautions to avoid falls Take your medications as advised Please keep follow-up appointments with your healthcare provider Try to use less of narcotic pain medication as it can cause constipation, confusion, dizziness, addiction. Aspirin twice daily for 4 weeks Orthopedic-Specific Instructions Things to Watch Out For -Go to the Emergency Room if you have sudden onset of chest pain, shortness of breath, or uncontrollable pain. -Call the orthopedics clinic immediately if you have a sudden increase in the amount of wound drainage or the drainage becomes thick, yellow or green, or foul-smelling. -For routine questions regarding your hip surgery, call the orthopedics clinic at [phone] during regular business hours (8am-5pm). For urgent issues after regular business hours, you may call the clinic to be connected to the on-call physician. Splint/Dressings -Do not remove your splint or dressings until you follow up in clinic or with therapy. -Keep the splint and dressings clean and dry. If the splint padding gets damp, you may use a hair boiler on a low heat setting to dry it out. If the splint padding is soaked, call the clinic to have the splint replaced. -Do not put any objects down inside the splint (such as coat hangers). They could scratch your skin and cause a serious infection underneath the splint. Sling/Activity -Keep your hand elevated and move your fingers frequently to reduce swelling. -You may wear a sling for comfort, but come out of the sling 4-5 times a day for active range of motion exercises for your shoulder and elbow. -Do not lift any objects greater than 1 pound or bear any weight through your left wrist. You may bear weight through your left elbow on a platform walker. Weight bearing -You may weight bear as tolerated on your left ankle with the walking boot in place. Use a platform walker for balance and assistance. Followup -You will need to follow-up with Dr. Dallas in orthopedic surgery clinic 10- 14 days after surgery. You will also need to start physical therapy 3-5 days after surgery. Please call [facility] at [phone] to liz ke these appointments. Pending Studies at Discharge: No Stand-Alone Forms: [employer], Smoking Cessation Medications and DC Order Prescriptions: New aspirin 81 mg Tablet,Delayed Release (Dr/Ec) 81 mg PO BID Qty: 60 0RF nicotine [Nicoderm CQ] 21 mg/24 hr Patch 24 Hour 21 mg transdermal QAM Qty: 28 0RF oxycodone 5 mg Tablet 5 mg PO Q6H PRN (Reason: pain) Qty: 10 0RF Continued cyanocobalamin (vitamin B-12) [Vitamin B-12] 1,000 mcg Tablet 1,000 mcg PO QPM magnesium oxide 400 mg magnesium Tablet 400 mg PO QPM atorvastatin 40 mg tablet 40 mg PO DAILY clonazepam 0.5 mg tablet 0.5 mg PO HS gabapentin 400 mg capsule 400 mg PO QID liothyronine 5 mcg tablet 12.5 mcg PO DAILY docusate sodium 100 mg Tablet 100 mg PO BID PRN (Reason: Constipation) cholecalciferol (vitamin D3) [Vitamin D3] 25 mcg (1,000 unit) Capsule 1,000 unit PO DAILY duloxetine 30 mg capsule,delayed release(DR/EC) 30 mg PO DAILY duloxetine 60 mg capsule,delayed release(DR/EC) 60 mg PO DAILY Discharge Orders: Discharge Order (Routine); Ordered 03/17/23 Ordered By: Ana Ruiz Admission Data Admit Date/Time: 03/16/23 10:24 Attending Provider: Ana Ruiz Admit Provider: Keren Rico Primary Care Provider: Key Love Other Providers: Keren Rico; Dontae Valera; [facility]; [facility] Other Interventions: Discharge Summary Assessment (RN) Last Done: 03/17/23 17:23
== END 2023-03-17 16:00 | disposition home health service (06) | DRG 512 ==
LOC: 2N 10:54 → ED 10:54 → SUATTDRO 14:58 → 2N 16:19

== ENCOUNTER 2025-01-13 05:09 | Inpatient (IN) ==
[2025-01-13] MEDS: SODIUM CHLORIDE 0.9% 1,000 ML IV ONE (05:29)
[2025-01-13] MEDS: ACETAMINOPHEN 1,000 MG/100 ML VIAL IV STA (05:29)
[2025-01-13 05:46] LABS: Hematocrit (blood only) 44.2 % (37.0-47.0); Hemoglobin 15.2 g/dl (12.0-16.0); Immature Granulocytes # (auto) 0.04 K/uL (0.01-0.20); Immature Granulocytes % (auto) 0.4 %; Mean Corpuscular Hemoglobin 30.0 pg (25.0-34.0); Mean Corpuscular Volume 87.2 fL (80.0-100.0); Platelet Count 296 K/uL (130-400); RDW Standard Deviation 41.5 fL (36.4-46.3); Red Blood Count 5.07 M/uL (4.20-5.40); White Blood Count 9.65 K/ul (4.8-10.8)
--- NOTE | 2025-01-13 06:25 | Emergency Department Note ---
Impression & Plan Generalized weakness, Hypoxia, COVID-19, Tobacco use, Pneumonia ED Provider Note ED Provider Note NAME: JAMES Cordova ZHAO AGE:64 SEX: Female : 1960 ARRIVES VIA: Private vehicle INFORMANT: Patient ED PROVIDER(s): Enedelia Cline DO CHIEF COMPLAINT: Weakness, cough HPI: This is a 64-year-old female who presents to the emergency department due to concern for increased weakness and fatigue which she states began after dinner yesterday evening. She states she went to bed early. She states she has been dealing with "bronchitis" for the last 3 weeks and to take a 5-day course of prednisone and Mucinex as prescribed by her PCP. She also recently traveled to [place] to visit her daughter. Patient does have a history of MS which is managed by neurology at [facility]. Patient states when she awoke early this morning she developed a sense of chills and was shaking. She states it felt that her whole body was shaking and she could not stop it and could not get warm. She states after they subsided she then felt hot and began to sweat. She states she has had persistent nasal congestion and mild sore throat as well as persistent nonproductive cough since she was first diagnosed with bronchitis 3 weeks ago. Patient is a smoker. She denies any history of recurrent bronchitis or pneumonia. She does not wear oxygen at home. No recent change in bowel or bladder function. No recent leg swelling. She denies any chest or abdominal pain. PAST MEDICAL HISTORY:See Below PAST SURGICAL HISTORY:See Below FAMILY HISTORY:See Below SOCIAL HISTORY:See Below HOME MEDICATIONS:See Below ALLERGIES:See Below VITALS:See Below PHYSICAL EXAMINATION: GENERAL: alert, unwell appearing, well nourished, no distress, non-toxic EYE EXAM: normal conjunctiva, PERRL and EOM's grossly intact OROPHARYNX: no exudate, no erythema, lips, buccal mucosa, and tongue normal and mucous membranes are moist NECK: supple, no nuchal rigidity, no adenopathy, non-tender LUNGS: Clear to auscultation. Normal chest wall mechanics, no w/r/r, mild tachypnea with conversation, no retractions HEART: no murmurs, S1 normal and S2 normal ABDOMEN: abdomen soft, non-tender, normo-active bowel sounds, no masses, no rebound or guarding. SKIN: no rashes, petechiae, orbruising UPPER EXTREMITIES: upper extremities are grossly normal. FROM, nml pulses b/l. LOWER EXTREMITIES: No pitting edema. FROM, nml pulses b/l. NEURO EXAM: Normal sensorium, cranial nerves II-XII grossly intact, normal speech, no facial droop,nogross weakness of arms, no gross weakness of legs. Gross sensation intact. No ataxia. Vital Signs: reviewed and remarkable Differential Diagnosis: dehydration, stroke, anemia, hypoglycemia, hyponatremia, hypernatremia, urinary tract infection, pneumonia, bronchitis, sepsis, gastroenteritis, additional abdominal pathology, metabolic abnormalities, as well as others were considered MEDICAL DECISION MAKING: This is a 64-year-old female who presents to the emergency department due to concern for increased weakness, shaking chills at home, and persistent URI symptoms over the last 3 weeks. Patient noted to be febrile, tachycardic, tachypneic, and hypoxic on arrival. Labs including cultures were drawn and sent, IV established, EKG and chest. Performed at bedside and interpreted by me and the patient was monitored on telemetry. Patient started on IV fluids and after review of her chest x-ray she was started on IV Rocephin due to concern for right lower lobe pneumonia. Nasal swab had been obtained and sent for viral panel was ultimately positive for COVID-19. Due to absence of leukocytosis and reassuring Pro-Bryant and lactic acid as well as in consideration for recent travel, patient sent for CT angiography of the chest. No obvious acute PE noted. Patient was given IV Decadron as well as 2 DuoNeb treatments here with improvement. We discussed all results at bedside and need for further inpatient monitoring given underlying pathology, comorbid conditions, and hypoxia. Case discussed with the hospitalist team for additional evaluation and management. Patient did receive greater than 30 mL/kilogram based on ideal body weight initially as part of sepsis protocol. Patient's blood pressure stable throughout. Consultation(s): 1010: Discussed with Amanda Valdez hospitalist team, for additional evaluation and mgmt. ER Treatment Provided: See below Diagnostics Interpreted By Me: -ECG: Sinus tachycardia 109, normal axis, normal intervals, nonspecific ST/T wave changes -Cardiac Monitoring: An order was placed for continuous cardiac monitoring. The monitor shows a rate of 108 with sinus tachycardia rhythm. -Laboratory studies: As stated above and show below. -Imaging studies: X-ray Chest: A single view study of the chest was reviewed and was negative for cardiomegaly, effusion, pulmonary edema, or wide mediastinum. RLL pna. Triage Nursing Note Reviewed Prior/Outside Records Reviewed Past Med/Surg History Problem List (Updated 01/13/25 @ 17:00 by Enedelia Cline, DO) Pneumonia (Acute) Pneumonia due to COVID-19 virus Acute respiratory failure due to COVID-19 SARS-CoV-2 positive COVID-19 (Acute) Hypoxia (Acute) Generalized weakness (Acute) Left fibular fracture Encounter for pre-operative examination Chest pain Tobacco use (Acute) History of multiple sclerosis (Acute) Atypical chest pain (Acute) Closed fracture of distal end of left fibula (Acute) Closed fracture of left distal radius (Acute) Depression Hyperlipidemia Multiple sclerosis Lumbar stenosis with neurogenic claudication Surgical History Hx of tonsillectomy History of cholecystectomy Family History Other Breast cancer Cancer Diabetes Heart disease Social History Smoking Status: Current every day smoker Tobacco Type: Cigarettes Cigarettes Per Day: half pack; Second Hand Exposure: Yes; Do You Dip or Chew Tobacco: No; Hx Alcohol Use: Yes Alcohol type: other Hx Substance Use: No Preferred Language: Taiwanese Communication Ability: Effective 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 Beliefs That Will Affect Care: None marital status: Current Living Situation: Spouse and Family Other Information That Helps Us Care for You: No Feels Safe at Home: Yes Safety Concerns: Feels Safe At This Time Assistive Devices: Glasses Allergies Allergies Allergy/AdvReac Type Severity Reaction Status Date / Time nickel Allergy Intermediate itchy ears Verified 03/15/23 15:00 with earrings WITH NICKEL -gets infected PER PT Sulfa (Sulfonamide Allergy Rash Verified 01/13/25 08:28 Antibiotics) morphine AdvReac Hypotension Verified 01/13/25 08:28 Home Meds Home Medications Medication Instructions Recorded Confirmed atorvastatin 40 mg tablet 40 mg PO DAILY 03/15/23 01/13/25 cholecalciferol (vitamin D3) 25 1,000 unit PO DAILY 03/15/23 01/13/25 mcg (1,000 unit) capsule (Vitamin D3) clonazepam 0.5 mg tablet 0.5 mg PO HS 03/15/23 01/13/25 cyanocobalamin (vitamin B-12) 1,000 mcg PO QPM 03/15/23 01/13/25 1,000 mcg tablet (Vitamin B-12) docusate sodium 100 mg tablet 100 mg PO BID PRN Constipation 03/15/23 01/13/25 duloxetine 30 mg capsule,delayed 30 mg PO DAILY 03/15/23 01/13/25 release duloxetine 60 mg capsule,delayed 60 mg PO DAILY 03/15/23 01/13/25 release gabapentin 400 mg capsule 400 mg PO QID 03/15/23 01/13/25 liothyronine 5 mcg tablet 12.5 mcg PO DAILY 03/15/23 01/13/25 magnesium oxide 400 mg PO QPM 03/15/23 01/13/25 Previous Rx's Medication Instructions Recorded aspirin 81 mg tablet,delayed 81 mg PO BID #60 tabs 03/17/23 release nicotine 21 mg/24 hr daily 21 mg transdermal QAM #28 ea 03/17/23 transdermal patch (Nicoderm CQ) oxycodone 5 mg tablet 5 mg PO Q6H PRN pain #10 tabs 03/17/23 Results & Data (ED) Vital Signs Vital Signs - 24 hr 01/13/25 05:17 01/13/25 05:18 01/13/25 05:30 Temperature 38.8 C H Temperature Source Oral Pulse Rate 114 H 110 H 111 H Pulse Rate from SpO2 Sensor Respiratory Rate 20 17 Respiratory Effort / Characteristics Non-Labored Blood Pressure 145/89 H 136/86 Blood Pressure Mean 107 109 Pulse Oximetry 94 90 Oxygen Delivery Method Room Air Oxygen Flow Rate Sepsis Recent Fever Within 48 Hours Yes Sepsis New/Unexplained Change in Mental Status No Sepsis Action Taken by Nursing No Action Required Oxygen Flow Rate - Titration Pulse Oximetry Post Tiitration 01/13/25 05:57 01/13/25 06:06 01/13/25 06:32 Temperature 37.7 C H Temperature Source Oral Pulse Rate 104 H Pulse Rate from SpO2 Sensor Respiratory Rate 27 H Respiratory Effort / Characteristics Blood Pressure 118/74 Blood Pressure Mean 88 Pulse Oximetry 88 L 95 Oxygen Delivery Method Nasal Cannula Nasal Cannula Oxygen Flow Rate 0 2 Sepsis Recent Fever Within 48 Hours Sepsis New/Unexplained Change in Mental Status Sepsis Action Taken by Nursing Oxygen Flow Rate - Titration 2 Pulse Oximetry Post Tiitration 97 01/13/25 06:45 01/13/25 07:23 01/13/25 07:24 Temperature 37.6 C Temperature Source Oral Pulse Rate 102 H 96 H Pulse Rate from SpO2 Sensor Respiratory Rate 24 23 Respiratory Effort / Characteristics Blood Pressure 109/69 Blood Pressure Mean 84 Pulse Oximetry 95 95 Oxygen Delivery Method Oxygen Flow Rate Sepsis Recent Fever Within 48 Hours Sepsis New/Unexplained Change in Mental Status Sepsis Action Taken by Nursing Oxygen Flow Rate - Titration Pulse Oximetry Post Tiitration 01/13/25 07:31 01/13/25 07:31 01/13/25 07:31 Temperature Temperature Source Pulse Rate 95 H Pulse Rate from SpO2 Sensor Respiratory Rate 27 H Respiratory Effort / Characteristics Blood Pressure 120/75 120/75 120/75 Blood Pressure Mean 104 104 104 Pulse Oximetry 97 Oxygen Delivery Method Oxygen Flow Rate Sepsis Recent Fever Within 48 Hours Sepsis New/Unexplained Change in Mental Status Sepsis Action Taken by Nursing Oxygen Flow Rate - Titration Pulse Oximetry Post Tiitration 01/13/25 07:33 01/13/25 08:00 01/13/25 08:00 Temperature Temperature Source Pulse Rate 98 H 95 H 95 H Pulse Rate from SpO2 Sensor 99 H Respiratory Rate 27 H 22 22 Respiratory Effort / Characteristics Blood Pressure 119/75 119/75 Blood Pressure Mean 89 89 Pulse Oximetry 95 94 94 Oxygen Delivery Method Oxygen Flow Rate 2 2 Sepsis Recent Fever Within 48 Hours Sepsis New/Unexplained Change in Mental Status Sepsis Action Taken by Nursing Oxygen Flow Rate - Titration Pulse Oximetry Post Tiitration 01/13/25 08:31 01/13/25 09:06 01/13/25 09:30 Temperature Temperature Source Pulse Rate 89 94 H Pulse Rate from SpO2 Sensor 94 H 96 H Respiratory Rate 26 H 29 H Respiratory Effort / Characteristics Blood Pressure 117/53 L 115/68 144/100 H Blood Pressure Mean 70 83 114 Pulse Oximetry 94 91 95 Oxygen Delivery Method Oxygen Flow Rate 2 1 1 Sepsis Recent Fever Within 48 Hours Sepsis New/Unexplained Change in Mental Status Sepsis Action Taken by Nursing Oxygen Flow Rate - Titration Pulse Oximetry Post Tiitration 01/13/25 09:38 01/13/25 10:00 Temperature Temperature Source Pulse Rate 83 85 Pulse Rate from SpO2 Sensor Respiratory Rate 25 H Respiratory Effort / Characteristics Blood Pressure 115/84 Blood Pressure Mean 93 Pulse Oximetry 93 Oxygen Delivery Method Nasal Cannula Oxygen Flow Rate 1 Sepsis Recent Fever Within 48 Hours Sepsis New/Unexplained Change in Mental Status Sepsis Action Taken by Nursing Oxygen Flow Rate - Titration Pulse Oximetry Post Tiitration Laboratory Data 01/13/25 05:20 01/13/25 07:02 Lab Results 01/13/25 01/13/25 01/13/25 Range/Units 05: 05: 07:02 WBC 9.65 (4.8-10.8) K/ul RBC 5.07 (4.20-5.40) M/uL Hgb 15.2 (12.0-16.0) g/dl Hct 44.2 (37.0-47.0) % MCV 87.2 (80.0-100.0) fL MCH 30.0 (25.0-34.0) pg MCHC 34.4 (32.0-36.0) g/dL RDW Std Deviation 41.5 (36.4-46.3) fL RDW Coeff of Todd 13.0 (11.5-14.5) % Plt Count 296 (130-400) K/uL MPV 9.3 L (9.4-12.4) fL Immature Gran % (Auto) 0.4 % Neut % (Auto) 83.1 % Lymph % (Auto) 11.2 % King % (Auto) 3.7 % Eos % (Auto) 1.1 % Baso % (Auto) 0.5 % Neut # (Auto) 8.01 H (1.40-6.50) K/uL Lymph # (Auto) 1.08 L (1.20-3.40) K/uL King # (Auto) 0.36 (0.11-0.59) K/uL Eos # (Auto) 0.11 (0.00-0.50) K/uL Baso # (Auto) 0.05 (0.00-0.20) K/uL Immature Gran # (Auto) 0.04 (0.01-0.20) K/uL Sodium 138 (136-145) mmol/L Potassium TNP 3.5 Chloride 105 (98-107) mmol/L Carbon Dioxide 26 (21-32) mmol/L Anion Gap 7 (3-11) BUN 15 (6-23) mg/dl Creatinine 0.82 (0.6-1.2) mg/dl Est Cr Clr Drug Dosing 69.6 ml/min eGFR 80.32 BUN/Creatinine Ratio 18.3 (10-20) Glucose 76 (70-99(Fasting)) mg/dl Lactate 1.7 (0.4-2.0) mmol/L Calcium 9.2 (8.6-10.3) mg/dl Total Bilirubin 0.6 (0.2-1.0) mg/dl AST TNP 14 ALT 9 (7-52) U/L Alkaline Phosphatase 90 (34-104) U/L Troponin I High Sens (0-14) pg/ml Total Protein 6.7 (6.0-8.3) gm/dl Albumin 3.8 (3.4-5.0) gm/dl Globulin 2.9 (2.5-4.0) gm/dl Albumin/Globulin Ratio 1.3 (0.9-2) Lipase 45 (11-82) U/L Procalcitonin 0.03 (0-0.5) ng/ml Adenovirus (PCR) Not Detected (NotDetected) B. pertussis DNA (PCR) Not Detected (NotDetected) B.parapertussis DNA PCR Not Detected (NotDetected) C. pneumoniae DNA (PCR) Not Detected (NotDetected) Coronavirus OC43 (PCR) Not Detected (NotDetected) Coronavirus HKU1 (PCR) Not Detected (NotDetected) Coronavirus 229E (PCR) Not Detected (NotDetected) SARS-CoV-2 (PCR) DETECTED A (NotDetected) Coronavirus NL63 (PCR) Not Detected (NotDetected) Human Metapneumovir PCR Not Detected (NotDetected) Influenza Type A (PCR) Not Detected (NotDetected) Influenza Type B (PCR) Not Detected (NotDetected) M. pneumoniae (PCR) Not Detected (NotDetected) Parainfluenza 1 (PCR) Not Detected (NotDetected) Parainfluenza 2 (PCR) Not Detected (NotDetected) Parainfluenza 3 (PCR) Not Detected (NotDetected) Parainfluenza 4 (PCR) Not Detected (NotDetected) RSV (PCR) Not Detected (NotDetected) Entero/Rhino (PCR) Not Detected (NotDetected) 01/13/25 Range/Units 08:13 WBC (4.8-10.8) K/ul RBC (4.20-5.40) M/uL Hgb (12.0-16.0) g/dl Hct (37.0-47.0) % MCV (80.0-100.0) fL MCH (25.0-34.0) pg MCHC (32.0-36.0) g/dL RDW Std Deviation (36.4-46.3) fL RDW Coeff of Todd (11.5-14.5) % Plt Count (130-400) K/uL MPV (9.4-12.4) fL Immature Gran % (Auto) % Neut % (Auto) % Lymph % (Auto) % King % (Auto) % Eos % (Auto) % Baso % (Auto) % Neut # (Auto) (1.40-6.50) K/uL Lymph # (Auto) (1.20-3.40) K/uL King # (Auto) (0.11-0.59) K/uL Eos # (Auto) (0.00-0.50) K/uL Baso # (Auto) (0.00-0.20) K/uL Immature Gran # (Auto) (0.01-0.20) K/uL Sodium (136-145) mmol/L Potassium Chloride (98-107) mmol/L Carbon Dioxide (21-32) mmol/L Anion Gap (3-11) BUN (6-23) mg/dl Creatinine (0.6-1.2) mg/dl Est Cr Clr Drug Dosing ml/min eGFR BUN/Creatinine Ratio (10-20) Glucose (70-99(Fasting)) mg/dl Lactate (0.4-2.0) mmol/L Calcium (8.6-10.3) mg/dl Total Bilirubin (0.2-1.0) mg/dl AST ALT (7-52) U/L Alkaline Phosphatase (34-104) U/L Troponin I High Sens 7.0 (0-14) pg/ml Total Protein (6.0-8.3) gm/dl Albumin (3.4-5.0) gm/dl Globulin (2.5-4.0) gm/dl Albumin/Globulin Ratio (0.9-2) Lipase (11-82) U/L Procalcitonin (0-0.5) ng/ml Adenovirus (PCR) (NotDetected) B. pertussis DNA (PCR) (NotDetected) B.parapertussis DNA PCR (NotDetected) C. pneumoniae DNA (PCR) (NotDetected) Coronavirus OC43 (PCR) (NotDetected) Coronavirus HKU1 (PCR) (NotDetected) Coronavirus 229E (PCR) (NotDetected) SARS-CoV-2 (PCR) (NotDetected) Coronavirus NL63 (PCR) (NotDetected) Human Metapneumovir PCR (NotDetected) Influenza Type A (PCR) (NotDetected) Influenza Type B (PCR) (NotDetected) M. pneumoniae (PCR) (NotDetected) Parainfluenza 1 (PCR) (NotDetected) Parainfluenza 2 (PCR) (NotDetected) Parainfluenza 3 (PCR) (NotDetected) Parainfluenza 4 (PCR) (NotDetected) RSV (PCR) (NotDetected) Entero/Rhino (PCR) (NotDetected) Administered Medications Enoxaparin Sodium (Enoxaparin Inj 40 Mg/0.4 Ml Syr) 40 mg SQ QAM BEN Stop: 02/12/25 11:59 Last Admin: 01/13/25 13:00 Dose: 40 mg Documented By: LEILANI Gabapentin (Gabapentin 400 Mg Cap) 400 mg PO QID BEN Stop: 02/12/25 12:59 Last Admin: 01/13/25 12:59 Dose: 400 mg Documented By: LEILANI Nicotine (Nicotine 14 Mg/24 Hr Patch) 1 patch TD QAM BEN Stop: 02/12/25 11:59 Last Admin: 01/13/25 12:59 Dose: 1 patch Documented By: LEILANI Discontinued Medications Albuterol (Albut/Ipratrop 3mg/0.5mg Neb 3 Ml Vial) 3 ml NEB NOW STA; Protocol Stop: 01/13/25 07:05 Last Admin: 01/13/25 07:18 Dose: 3 ml Documented By: eduardo Albuterol (Albut/Ipratrop 3mg/0.5mg Neb 3 Ml Vial) 3 ml NEB NOW STA; Protocol Stop: 01/13/25 10:11 Last Admin: 01/13/25 10:20 Dose: 3 ml Documented By: OREN Dexamethasone Sodium Phosphate (DexamethasonePf 10 Mg/Ml Vial) 6 mg IV NOW ONE Stop: 01/13/25 06:57 Last Admin: 01/13/25 07:17 Dose: 6 mg Documented By: eduardo Sodium Chloride (Nss) 1,000 mls @ 999 mls/hr IV .Q1H1M ONE Stop: 01/13/25 06:19 Last Infusion: 01/13/25 06:48 Dose: Infused Documented By: Admin: 01/13/25 05:29 Dose: 999 mls/hr Documented By: LINDSAY Acetaminophen (Ofirmev) 1,000 mg in 100 mls @ 400 mls/hr IV NOW STA Stop: 01/13/25 05:34 Last Infusion: 01/13/25 06:32 Dose: Infused Documented By: Admin: 01/13/25 05:29 Dose: 400 mls/hr Documented By: LINDSAY Ceftriaxone Sodium (Rocephin) 2,000 mg in 50 mls @ 100 mls/hr IV NOW STA Stop: 01/13/25 06:41 Last Infusion: 01/13/25 07:43 Dose: Infused Documented By: eduardo Admin: 01/13/25 06:30 Dose: 100 mls/hr Documented By: LINDSAY Sodium Chloride (Nss) 1,000 mls @ 125 mls/hr IV .Q8H BEN Stop: 01/16/25 06:59 Last Infusion: 01/13/25 15:30 Dose: Infused Documented By: Admin: 01/13/25 07:17 Dose: 125 mls/hr Documented By: eduardo Remdesivir 200 mg/ Sodium (Chloride) 250 mls @ 125 mls/hr IV ONE STA Stop: 01/13/25 12:56 Last Infusion: 01/13/25 15:30 Dose: Infused Documented By: Admin: 01/13/25 12:09 Dose: 125 mls/hr Documented By: DONNIE Ioversol (Optiray 320 125ml) 120 ml IV ONCE ONE Stop: 01/13/25 07:12 Last Admin: 01/13/25 07:11 Dose: 120 ml Documented By: BROOKE Imaging Data Radiologist's Impression: Chest X-Ray 01/13/25 05:40 EXAM: XR chest 1V portable CLINICAL HISTORY: fever TECHNIQUE: An X-ray image of the chest was obtained in AP projection. COMPARISON: prior 03/16/2023 FINDINGS: Pulmonary Parenchyma: An ill-defined haziness is noted in the right lower lung zone without silhouetting of the right cardiac border; possible infectious process or mild edema (new). Prominent bilateral bronchovascular markings are noted. No pulmonary nodules are identified. No evidence of pleural effusion or pleural thickening. Heart and Mediastinum: Heart size and shape are normal. No mediastinal widening or masses. No hilar or mediastinal lymphadenopathy. Bony Thorax: The bony thorax appears intact without fractures or deformities. Soft Tissues: The soft tissues overlying the chest wall are unremarkable. IMPRESSION: An ill-defined haziness is noted in the right lower lung zone without silhouetting of the right cardiac border; possible infectious process or mild edema (new). Electronically signed by Miguel Snider 01-13-2025 07:10 AM Chest CTA 01/13/25 06:18 EXAM: CT angio chest PE protocol CLINICAL HISTORY: PE. TECHNIQUE: Contiguous 3.[address] angiographic images of the chest were acquired with the administration of intravenous contrast. Coronal and sagittal reconstructions were obtained. 120 ml of Optiray 320 was administered for post-contrast images. One of these 3D techniques was utilized: Maximum Intensity Pixel (MIP), 3D Reconstructed Images, Volume Rendered Images, or Surface Shaded Rendering. One of the following dose reduction techniques was utilized for this exam: automated exposure control, adjustment of the mA and/or kV according to patient size, and use of iterative reconstruction. COMPARISON: 03/16/2023 CT. FINDINGS: Aorta: The thoracic aorta is normal in caliber. There is no evidence of aneurysm, dissection, or significant atherosclerotic changes. The aortic arch and descending thoracic aorta are unremarkable. Pulmonary Arteries: The pulmonary arteries are normal in size and opacification. A hypodense filling defect is seen in the left pulmonary artery bifurcation, which may be related to chronic thrombus with thickening of the artery (stable). There is no evidence of acute pulmonary embolism. There is no stenosis or other filling defects. Superior Vena Cava (SVC) and Inferior Vena Cava (IVC): There is normal opacification and caliber. There is no evidence of thrombus or obstruction. Coronary Arteries: The coronary arteries are well opacified. There is no significant stenosis or atherosclerotic changes. Mediastinum: Prominent lymph nodes in the prevascular region measure approximately 2.1 x 1.8 cm and 2.2 x 2 cm (stable). Heart: The heart is normal in size and morphology. There is no pericardial effusion. Lungs: There is minimal progression of the bilateral basal subpleural consolidation associated with pleural thickening, likely representing aspiration pneumonia. Bones: There is thoracic spine spondylosis. There are no fractures or lytic/sclerotic lesions of the visualized bony structures. There is normal alignment and bone density. Soft Tissues: There is normal appearance of the visualized soft tissues. There are no abnormal masses or fluid collections. Newly seen hiatal hernia. IMPRESSION: 1. There is no evidence of acute pulmonary embolism. 2. A hypodense area is seen in the left pulmonary artery bifurcation, which may be related to partial volume effect or chronic thrombus or wall thickening of the artery, unchanged compared to the prior study dated 03/16/2023. 3. Minimal increase of the bilateral basal subpleural consolidation associated with pleural thickening could represent an infectious/inflammatory process or be due to pulmonary edema; clinical correlation is needed. 4. Newly seen hiatal hernia. 5. There is stable appearance of the enlarged prevascular lymph nodes. 6. There is thoracic spine spondylosis (stable). Electronically signed by Miguel Snider 01-13-2025 08:47 AM Discharge Plan Visit Data Chief Complaint: Weakness Stated Complaint: SHAKING ED Provider: Enedelia Cline Discharge Problem: Generalized weakness, Hypoxia, COVID-19, Tobacco use, Pneumonia Patient Disposition: Admitted As Inpatient Condition: Fair Discharge Instructions Interventions: ED Discharge Assessment Last Done: 01/13/25 11:47
[2025-01-13] MEDS: cefTRIAXone SODIUM 2,000 MG/50 ML BAG IV STA (06:30)
[2025-01-13 06:42] LABS: Chlamydia pneumoniae PCR Not Detected (NotDetected); Coronavirus 229E PCR Not Detected (NotDetected); Coronavirus CoV-2 (COVID19)PCR DETECTED (NotDetected); Coronavirus HKU1 PCR Not Detected (NotDetected); Coronavirus NL63 PCR Not Detected (NotDetected); Coronavirus OC43PCR Not Detected (NotDetected); Human Metapneumovirus PCR Not Detected (NotDetected); Parainfluenza Virus 1 PCR Not Detected (NotDetected); Parainfluenza Virus 2 PCR Not Detected (NotDetected); Parainfluenza Virus 3 PCR Not Detected (NotDetected); Parainfluenza Virus 4 PCR Not Detected (NotDetected); Respiratory Syncytial VirusPCR Not Detected (NotDetected); Rhinovirus/Enterovirus PCR Not Detected (NotDetected)
[2025-01-13 06:47] LABS: Alanine Aminotransferase 9 U/L (7-52); Albumin Globulin Ratio 1.3 (0.9-2); Albumin Level 3.8 gm/dl (3.4-5.0); Alkaline Phosphatase 90 U/L (34-104); Anion Gap 7 (3-11); Bilirubin,Total 0.6 mg/dl (0.2-1.0); Blood Urea Nitrogen 15 mg/dl (6-23); Calcium 9.2 mg/dl (8.6-10.3); Carbon Dioxide 26 mmol/L (21-32); Chloride 105 mmol/L (98-107); Creatinine Clr Calc Pharmacy 69.6 ml/min; Globulin 2.9 gm/dl (2.5-4.0); Glucose 76 mg/dl (70-99(Fasting)); Lipase 45 U/L (11-82); Sodium 138 mmol/L (136-145); Total Protein 6.7 gm/dl (6.0-8.3)
[2025-01-13] MEDS: OPTIRAY 320 125ml IV ONE (07:11)
--- NOTE | 2025-01-13 07:11 | XRay Report ---
EXAM: XR chest 1V portable CLINICAL HISTORY: fever TECHNIQUE: An X-ray image of the chest was obtained in AP projection. COMPARISON: prior 03/16/2023 FINDINGS: Pulmonary Parenchyma: An ill-defined haziness is noted in the right lower lung zone without silhouetting of the right cardiac border; possible infectious process or mild edema (new). Prominent bilateral bronchovascular markings are noted. No pulmonary nodules are identified. No evidence of pleural effusion or pleural thickening. Heart and Mediastinum: Heart size and shape are normal. No mediastinal widening or masses. No hilar or mediastinal lymphadenopathy. Bony Thorax: The bony thorax appears intact without fractures or deformities. Soft Tissues: The soft tissues overlying the chest wall are unremarkable. IMPRESSION: An ill-defined haziness is noted in the right lower lung zone without silhouetting of the right cardiac border; possible infectious process or mild edema (new). Electronically signed by Miguel Snider 01-13-2025 07:10 AM
[2025-01-13] MEDS: SODIUM CHLORIDE 0.9% 1,000 ML IV SCH (07:17)
[2025-01-13] MEDS: dexAMETHasone**PF** 10 MG/ML VIAL IV ONE (07:17)
[2025-01-13] MEDS: ALBUT/IPRATROP 3MG/0.5MG NEB 3 ML VIAL NEB STA ×2 (07:18→10:20)
[2025-01-13 07:46] LABS: Potassium 3.5 mmol/L (3.5-5.1)
--- NOTE | 2025-01-13 08:47 | CT Scan Report ---
EXAM: CT angio chest PE protocol CLINICAL HISTORY: PE. TECHNIQUE: Contiguous 3.[address] angiographic images of the chest were acquired with the administration of intravenous contrast. Coronal and sagittal reconstructions were obtained. 120 ml of Optiray 320 was administered for post-contrast images. One of these 3D techniques was utilized: Maximum Intensity Pixel (MIP), 3D Reconstructed Images, Volume Rendered Images, or Surface Shaded Rendering. One of the following dose reduction techniques was utilized for this exam: automated exposure control, adjustment of the mA and/or kV according to patient size, and use of iterative reconstruction. COMPARISON: 03/16/2023 CT. FINDINGS: Aorta: The thoracic aorta is normal in caliber. There is no evidence of aneurysm, dissection, or significant atherosclerotic changes. The aortic arch and descending thoracic aorta are unremarkable. Pulmonary Arteries: The pulmonary arteries are normal in size and opacification. A hypodense filling defect is seen in the left pulmonary artery bifurcation, which may be related to chronic thrombus with thickening of the artery (stable). There is no evidence of acute pulmonary embolism. There is no stenosis or other filling defects. Superior Vena Cava (SVC) and Inferior Vena Cava (IVC): There is normal opacification and caliber. There is no evidence of thrombus or obstruction. Coronary Arteries: The coronary arteries are well opacified. There is no significant stenosis or atherosclerotic changes. Mediastinum: Prominent lymph nodes in the prevascular region measure approximately 2.1 x 1.8 cm and 2.2 x 2 cm (stable). Heart: The heart is normal in size and morphology. There is no pericardial effusion. Lungs: There is minimal progression of the bilateral basal subpleural consolidation associated with pleural thickening, likely representing aspiration pneumonia. Bones: There is thoracic spine spondylosis. There are no fractures or lytic/sclerotic lesions of the visualized bony structures. There is normal alignment and bone density. Soft Tissues: There is normal appearance of the visualized soft tissues. There are no abnormal masses or fluid collections. Newly seen hiatal hernia. IMPRESSION: 1. There is no evidence of acute pulmonary embolism. 2. A hypodense area is seen in the left pulmonary artery bifurcation, which may be related to partial volume effect or chronic thrombus or wall thickening of the artery, unchanged compared to the prior study dated 03/16/2023. 3. Minimal increase of the bilateral basal subpleural consolidation associated with pleural thickening could represent an infectious/inflammatory process or be due to pulmonary edema; clinical correlation is needed. 4. Newly seen hiatal hernia. 5. There is stable appearance of the enlarged prevascular lymph nodes. 6. There is thoracic spine spondylosis (stable). Electronically signed by Miguel Snider 01-13-2025 08:47 AM
[2025-01-13 09:50] LABS: Appearance Urine Clear (Clear); Glucose Urine UA Negative (Negative)
--- NOTE | 2025-01-13 10:03 | History & Physical Report ---
Date of Service January 13, 2025 Assessment & Plan (1) SARS-CoV-2 positive: Plan SARS-CoV-2 positive DVT Prophylaxis: Code Status: FULL CODE PCP: Key Love MD Disposition: Admit to med/telemetry Patient seen in collaboration with Dr. Díaz. Please see addendum. I spent a total of minutes coordinating, documenting, and providing care for this patient excluding time spent in the performance of separately billed services or time spent by another provider/QHP. This included personally reviewing all current laboratories and imaging studies, medical reconciliation, outpatient chart review and discussion with specialists. This chart was completed in part utilizing Speech Voice Recognition Software. Grammatical errors, random word insertions, pronoun errors, and incomplete sentences are an occasional consequence of this system due to software limitations, ambient noise, and hardware issues. Any formal questions or concerns about the content, text, or information contained within the body of this dictation should be directly addressed to the provider for clarification. History of Present Illness Chief Complaint: Weakness, cough Primary Care Provider: Key Love MD Patient is a 64-year-old female with past medical history significant for HLD, multiple sclerosis, tobacco use and depression who presented the ED with complaints of generalized weakness and cough. History obtained from the patient, discussion with the ED provider and associated chart review. Allergies Allergy/AdvReac Type Severity Reaction Status Date / Time nickel Allergy Intermediate itchy ears Verified 03/15/23 15:00 with earrings WITH NICKEL -gets infected PER PT Sulfa (Sulfonamide Allergy Rash Verified 01/13/25 08:28 Antibiotics) morphine AdvReac Hypotension Verified 01/13/25 08:28 Home Medications Medication Instructions Recorded Confirmed Type atorvastatin 40 mg tablet 40 mg PO DAILY 03/15/23 01/13/25 History cholecalciferol (vitamin D3) 25 1,000 unit PO DAILY 03/15/23 01/13/25 History mcg (1,000 unit) capsule (Vitamin D3) clonazepam 0.5 mg tablet 0.5 mg PO HS 03/15/23 01/13/25 History cyanocobalamin (vitamin B-12) 1,000 mcg PO QPM 03/15/23 01/13/25 History 1,000 mcg tablet (Vitamin B-12) docusate sodium 100 mg tablet 100 mg PO BID PRN Constipation 03/15/23 01/13/25 History duloxetine 30 mg capsule,delayed 30 mg PO DAILY 03/15/23 01/13/25 History release duloxetine 60 mg capsule,delayed 60 mg PO DAILY 03/15/23 01/13/25 History release gabapentin 400 mg capsule 400 mg PO QID 03/15/23 01/13/25 History liothyronine 5 mcg tablet 12.5 mcg PO DAILY 03/15/23 01/13/25 History magnesium oxide 400 mg PO QPM 03/15/23 01/13/25 History aspirin 81 mg tablet,delayed 81 mg PO BID #60 tabs 03/17/23 01/13/25 Rx release nicotine 21 mg/24 hr daily 21 mg transdermal QAM #28 ea 03/17/23 01/13/25 Rx transdermal patch (Nicoderm CQ) oxycodone 5 mg tablet 5 mg PO Q6H PRN pain #10 tabs 03/17/23 01/13/25 Rx Past Med/Surg History Problem List (Updated 01/13/25 @ 10:04 by Darling Galvan PA-C) SARS-CoV-2 positive COVID-19 (Acute) Hypoxia (Acute) Generalized weakness (Acute) Left fibular fracture Encounter for pre-operative examination Chest pain Tobacco use History of multiple sclerosis (Acute) Atypical chest pain (Acute) Closed fracture of distal end of left fibula (Acute) Closed fracture of left distal radius (Acute) Depression Hyperlipidemia Multiple sclerosis Lumbar stenosis with neurogenic claudication Surgical History Hx of tonsillectomy History of cholecystectomy Family History Other Breast cancer Cancer Diabetes Heart disease Social History Smoking Status: Never smoker Tobacco Type: Cigarettes Cigarettes Per Day: 0.5-1ppd; Second Hand Exposure: Yes; Do You Dip or Chew Tobacco: No; Hx Alcohol Use: Yes Alcohol type: beer, wine and hard liquor Hx Substance Use: No Preferred Language: Khmer Communication Ability: Effective Director Risk Required: No Beliefs That Will Affect Care: None marital status: Current Living Situation: Spouse Feels Safe at Home: Yes Assistive Devices: Cane, Walker and Wheelchair Review of Systems Review of Systems: At least ten systems reviewed and negative, except as noted in the HPI. Results & Data Results & Data Vital Signs (Past 12 Hours) Vital Signs Temp Pulse Resp BP Pulse Ox O2 Del Method O2 Flow Rate 01/13/25 09:38 83 01/13/25 08:00 95 H 22 119/75 94 2 01/13/25 08:00 95 H 22 119/75 94 2 01/13/25 07:33 98 H 27 H 95 01/13/25 07:31 120/75 01/13/25 07:31 120/75 01/13/25 07:31 95 H 27 H 120/75 97 01/13/25 07:24 96 H 23 109/69 95 01/13/25 07:23 37.6 C 01/13/25 06:45 102 H 24 95 01/13/25 06:32 37.7 C H 01/13/25 06:06 104 H 27 H 118/74 95 Nasal Cannula 2 01/13/25 05:57 88 L Nasal Cannula 0 01/13/25 05:30 111 H 17 136/86 90 01/13/25 05:18 38.8 C H 110 H 20 145/89 H 94 Room Air 01/13/25 05:17 114 H Laboratory Results Short CBC 01/13/25 Range/Units 05:20 WBC 9.65 (4.8-10.8) K/ul Hgb 15.2 (12.0-16.0) g/dl Hct 44.2 (37.0-47.0) % Plt Count 296 (130-400) K/uL BMP 01/13/25 01/13/25 05:20 07:02 Sodium 138 Potassium TNP 3.5 Chloride 105 Carbon Dioxide 26 BUN 15 Creatinine 0.82 Glucose 76 Calcium 9.2 Liver Function 01/13/25 01/13/25 Range/Units 05:20 07:02 Total Bilirubin 0.6 (0.2-1.0) mg/dl AST TNP 14 ALT 9 (7-52) U/L Alkaline Phosphatase 90 (34-104) U/L Albumin 3.8 (3.4-5.0) gm/dl Urine 01/13/25 Range/Units Unknown Urine Color Yellow Urine Appearance Clear (Clear) Urine pH 5.5 (4.5-7.5) Ur Specific Mason 1.045 H (1.000-1.030) Urine Protein Negative (Negative) Urine Glucose (UA) Negative (Negative) Diagnostic Findings Chest X-Ray 01/13/25 05:40 EXAM: XR chest 1V portable CLINICAL HISTORY: fever TECHNIQUE: An X-ray image of the chest was obtained in AP projection. COMPARISON: prior 03/16/2023 FINDINGS: Pulmonary Parenchyma: An ill-defined haziness is noted in the right lower lung zone without silhouetting of the right cardiac border; possible infectious process or mild edema (new). Prominent bilateral bronchovascular markings are noted. No pulmonary nodules are identified. No evidence of pleural effusion or pleural thickening. Heart and Mediastinum: Heart size and shape are normal. No mediastinal widening or masses. No hilar or mediastinal lymphadenopathy. Bony Thorax: The bony thorax appears intact without fractures or deformities. Soft Tissues: The soft tissues overlying the chest wall are unremarkable. IMPRESSION: An ill-defined haziness is noted in the right lower lung zone without silhouetting of the right cardiac border; possible infectious process or mild edema (new). Electronically signed by Miguel Snider 01-13-2025 07:10 AM Chest CTA 01/13/25 06:18 EXAM: CT angio chest PE protocol CLINICAL HISTORY: PE. TECHNIQUE: Contiguous 3.[address] angiographic images of the chest were acquired with the administration of intravenous contrast. Coronal and sagittal reconstructions were obtained. 120 ml of Optiray 320 was administered for post-contrast images. One of these 3D techniques was utilized: Maximum Intensity Pixel (MIP), 3D Reconstructed Images, Volume Rendered Images, or Surface Shaded Rendering. One of the following dose reduction techniques was utilized for this exam: automated exposure control, adjustment of the mA and/or kV according to patient size, and use of iterative reconstruction. COMPARISON: 03/16/2023 CT. FINDINGS: Aorta: The thoracic aorta is normal in caliber. There is no evidence of aneurysm, dissection, or significant atherosclerotic changes. The aortic arch and descending thoracic aorta are unremarkable. Pulmonary Arteries: The pulmonary arteries are normal in size and opacification. A hypodense filling defect is seen in the left pulmonary artery bifurcation, which may be related to chronic thrombus with thickening of the artery (stable). There is no evidence of acute pulmonary embolism. There is no stenosis or other filling defects. Superior Vena Cava (SVC) and Inferior Vena Cava (IVC): There is normal opacification and caliber. There is no evidence of thrombus or obstruction. Coronary Arteries: The coronary arteries are well opacified. There is no significant stenosis or atherosclerotic changes. Mediastinum: Prominent lymph nodes in the prevascular region measure approximately 2.1 x 1.8 cm and 2.2 x 2 cm (stable). Heart: The heart is normal in size and morphology. There is no pericardial effusion. Lungs: There is minimal progression of the bilateral basal subpleural consolidation associated with pleural thickening, likely representing aspiration pneumonia. Bones: There is thoracic spine spondylosis. There are no fractures or lytic/sclerotic lesions of the visualized bony structures. There is normal alignment and bone density. Soft Tissues: There is normal appearance of the visualized soft tissues. There are no abnormal masses or fluid collections. Newly seen hiatal hernia. IMPRESSION: 1. There is no evidence of acute pulmonary embolism. 2. A hypodense area is seen in the left pulmonary artery bifurcation, which may be related to partial volume effect or chronic thrombus or wall thickening of the artery, unchanged compared to the prior study dated 03/16/2023. 3. Minimal increase of the bilateral basal subpleural consolidation associated with pleural thickening could represent an infectious/inflammatory process or be due to pulmonary edema; clinical correlation is needed. 4. Newly seen hiatal hernia. 5. There is stable appearance of the enlarged prevascular lymph nodes. 6. There is thoracic spine spondylosis (stable). Electronically signed by Miguel Snider 01-13-2025 08:47 AM Medications Administered Sodium Chloride (Nss) 1,000 mls @ 125 mls/hr IV .Q8H BEN Stop: 01/16/25 06:59 Last Admin: 01/13/25 07:17 Dose: 125 mls/hr Documented By: eduardo Discontinued Medications Albuterol (Albut/Ipratrop 3mg/0.5mg Neb 3 Ml Vial) 3 ml NEB NOW STA; Protocol Stop: 01/13/25 07:05 Last Admin: 01/13/25 07:18 Dose: 3 ml Documented By: eduardo Dexamethasone Sodium Phosphate (DexamethasonePf 10 Mg/Ml Vial) 6 mg IV NOW ONE Stop: 01/13/25 06:57 Last Admin: 01/13/25 07:17 Dose: 6 mg Documented By: eduardo Sodium Chloride (Nss) 1,000 mls @ 999 mls/hr IV .Q1H1M ONE Stop: 01/13/25 06:19 Last Infusion: 01/13/25 06:48 Dose: Infused Documented By: Admin: 01/13/25 05:29 Dose: 999 mls/hr Documented By: LINDSAY Acetaminophen (Ofirmev) 1,000 mg in 100 mls @ 400 mls/hr IV NOW STA Stop: 01/13/25 05:34 Last Infusion: 01/13/25 06:32 Dose: Infused Documented By: Admin: 01/13/25 05:29 Dose: 400 mls/hr Documented By: LINDSAY Ceftriaxone Sodium (Rocephin) 2,000 mg in 50 mls @ 100 mls/hr IV NOW STA Stop: 01/13/25 06:41 Last Infusion: 01/13/25 07:43 Dose: Infused Documented By: eduardo Admin: 01/13/25 06:30 Dose: 100 mls/hr Documented By: LINDSAY Ioversol (Optiray 320 125ml) 120 ml IV ONCE ONE Stop: 01/13/25 07:12 Last Admin: 01/13/25 07:11 Dose: 120 ml Documented By: BROOKE
--- NOTE | 2025-01-13 11:12 | History & Physical Report ---
Date of Service January 13, 2025 Assessment & Plan (1) Acute respiratory failure due to COVID-19: (2) Pneumonia due to COVID-19 virus: (3) Multiple sclerosis: (4) Lumbar stenosis with neurogenic claudication: Plan Patient 64-year-old female with COVID-pneumonia, multiple sclerosis and hypoxia upon presentation. She is high risk for further decompensation and requires hospital level care and intervention. Admit to the Medr unit Remdesivir protocol Decadron 6 mg daily Oxygen support as needed Antitussives and mucolytics Outpatient medications as ordered Nicotine replacement at bedside updated the plan of care History of Present Illness Chief Complaint: Chills, sweats, weakness, cough, malaise Primary Care Provider: Key Love MD Patient 64-year-old female who last evening started with above complaints. Throughout the night she had sweats, rigors and chills. This morning she woke up with extreme fatigue and malaise. She started with a dry nonproductive cough. She felt significantly ill enough to seek attention in the emergency room. In the emergency room workup was consistent with COVID infection. She tested positive for COVID. She was mildly hypoxic on room air upon presentation. She was referred to our service for further evaluation. Time my evaluation patient is off oxygen after some breathing treatments. O2 sat is 91 to 93% on room air. She confirms above symptoms. She states that she has no known exposures. She was feeling well up to last evening and did all her usual weekend activities. She denies any chest pain. She admits to some shortness of breath this morning and difficulty with breathing on exertion prompting evaluation emergency room. No nausea or vomiting. No new problems with the bowels or bladder. No swelling in hands arms or feet. She does smoke about half a pack per day of cigarettes. Allergies Allergy/AdvReac Type Severity Reaction Status Date / Time nickel Allergy Intermediate itchy ears Verified 03/15/23 15:00 with earrings WITH NICKEL -gets infected PER PT Sulfa (Sulfonamide Allergy Rash Verified 01/13/25 08:28 Antibiotics) morphine AdvReac Hypotension Verified 01/13/25 08:28 Home Medications Medication Instructions Recorded Confirmed Type atorvastatin 40 mg tablet 40 mg PO DAILY 03/15/23 01/13/25 History cholecalciferol (vitamin D3) 25 1,000 unit PO DAILY 03/15/23 01/13/25 History mcg (1,000 unit) capsule (Vitamin D3) clonazepam 0.5 mg tablet 0.5 mg PO HS 03/15/23 01/13/25 History cyanocobalamin (vitamin B-12) 1,000 mcg PO QPM 03/15/23 01/13/25 History 1,000 mcg tablet (Vitamin B-12) docusate sodium 100 mg tablet 100 mg PO BID PRN Constipation 03/15/23 01/13/25 History duloxetine 30 mg capsule,delayed 30 mg PO DAILY 03/15/23 01/13/25 History release duloxetine 60 mg capsule,delayed 60 mg PO DAILY 03/15/23 01/13/25 History release gabapentin 400 mg capsule 400 mg PO QID 03/15/23 01/13/25 History liothyronine 5 mcg tablet 12.5 mcg PO DAILY 03/15/23 01/13/25 History magnesium oxide 400 mg PO QPM 03/15/23 01/13/25 History aspirin 81 mg tablet,delayed 81 mg PO BID #60 tabs 03/17/23 01/13/25 Rx release nicotine 21 mg/24 hr daily 21 mg transdermal QAM #28 ea 03/17/23 01/13/25 Rx transdermal patch (Nicoderm CQ) oxycodone 5 mg tablet 5 mg PO Q6H PRN pain #10 tabs 03/17/23 01/13/25 Rx Past Med/Surg History Problem List (Updated 01/13/25 @ 11:10 by Evan Díaz DO) Pneumonia due to COVID-19 virus Acute respiratory failure due to COVID-19 SARS-CoV-2 positive COVID-19 (Acute) Hypoxia (Acute) Generalized weakness (Acute) Left fibular fracture Encounter for pre-operative examination Chest pain Tobacco use History of multiple sclerosis (Acute) Atypical chest pain (Acute) Closed fracture of distal end of left fibula (Acute) Closed fracture of left distal radius (Acute) Depression Hyperlipidemia Multiple sclerosis Lumbar stenosis with neurogenic claudication Surgical History Hx of tonsillectomy History of cholecystectomy Family History Other Breast cancer Cancer Diabetes Heart disease Social History Smoking Status: Never smoker Tobacco Type: Cigarettes Cigarettes Per Day: 0.5-1ppd; Second Hand Exposure: Yes; Do You Dip or Chew Tobacco: No; Hx Alcohol Use: Yes Alcohol type: beer, wine and hard liquor Hx Substance Use: No Preferred Language: Spanish Communication Ability: Effective Construction Superintendent Required: No Beliefs That Will Affect Care: None marital status: Current Living Situation: Spouse Feels Safe at Home: Yes Assistive Devices: Cane, Walker and Wheelchair Review of Systems Review of Systems: Pertinent positive and negative review of systems as mentioned in the HPI Physical Exam Physical Exam: Constitutional: Alert, moderately ill in appearance, nontoxic HEENT: Mucous membranes moist. Sclera clear Neck: Soft, no adenopathy Lungs: Decreased breath sounds, prolonged expiratory phase, no noted wheezes at this time, a few rhonchi that clear with cough CV: S1-S2, regular Abdomen: Soft, nontender, nondistended Extremities: No significant edema Musculoskeletal: No significant joint tenderness Neuro: No focal deficits Psych: Cooperative, normal mood Results & Data Results & Data Vital Signs (Past 12 Hours) Vital Signs Temp Pulse Resp BP Pulse Ox O2 Del Method O2 Flow Rate 01/13/25 10:30 95 H 21 121/79 93 Room Air 0 01/13/25 10:00 85 25 H 115/84 93 Nasal Cannula 1 01/13/25 09:38 83 01/13/25 09:30 94 H 29 H 144/100 H 95 1 01/13/25 09:06 115/68 91 1 01/13/25 08:31 89 26 H 117/53 L 94 2 01/13/25 08:00 95 H 22 119/75 94 2 01/13/25 08:00 95 H 22 119/75 94 2 01/13/25 07:33 98 H 27 H 95 01/13/25 07:31 120/75 01/13/25 07:31 120/75 01/13/25 07:31 95 H 27 H 120/75 97 01/13/25 07:24 96 H 23 109/69 95 01/13/25 07:23 37.6 C 01/13/25 06:45 102 H 24 95 01/13/25 06:32 37.7 C H 01/13/25 06:06 104 H 27 H 118/74 95 Nasal Cannula 2 01/13/25 05:57 88 L Nasal Cannula 0 01/13/25 05:30 111 H 17 136/86 90 01/13/25 05:18 38.8 C H 110 H 20 145/89 H 94 Room Air 01/13/25 05:17 114 H Diagnostic Findings Reviewed imaging, laboratory and diagnostic studies. Pertinent findings as below. Personally reviewed chest x-ray, some mild haziness right lower lobe Reviewed CTA Of the chest report, noted left pulmonary artery findings, unchanged since 2022, no acute pulmonary embolism medical. Some bilateral increased consolidations WBCs 9.6 Hemoglobin 15.2 Electrolytes within normal range Creatinine 0.82 LFTs within normal range Troponin 7.0, normal Procalcitonin 0.03 Urinalysis unremarkable Respiratory viral panel positive for COVID Code Status & VTE Plan VTE Prophylaxis Plan VTE Prophylaxis will be ordered: Yes
[2025-01-13] MEDS ORDERED: MAGNESIUM HYDROXIDE SUSP 30 ML UDC PO PRN (11:47)
[2025-01-13] MEDS ORDERED: POLYETHYLENE (MIRALAX) 17 GM PACK PO PRN (11:47)
[2025-01-13] MEDS ORDERED: ONDANSETRON INJ 2 MG/ML 2 ML VIAL IV PRN (11:47)
[2025-01-13] MEDS: REMDESIVIR 200 MG in SODIUM CHLORIDE 0.9% 210 ML IV STA (12:09)
[2025-01-13] MEDS: GABAPENTIN 400 MG CAP PO SCH (12:59)
[2025-01-13] MEDS: NICOTINE 14 MG/24 HR PATCH TD SCH (12:59)
[2025-01-13] MEDS: ENOXAPARIN INJ 40 MG/0.4 ML SYR SQ SCH (13:00)
[2025-01-13] MEDS: ACETAMINOPHEN 325 MG TAB PO PRN (18:24)
[2025-01-13] MEDS: clonazePAM 0.5 MG TAB PO SCH (21:12)
[2025-01-13] MEDS: guaiFENesin 600 MG TABCR PO SCH (21:12)
[2025-01-13] MEDS: ASPIRIN 81 MG ECTAB PO SCH (21:13)
[2025-01-13] MEDS: MAGNESIUM OXIDE 400 MG TAB PO SCH (21:13)
--- NOTE | 2025-01-14 06:11 | Electrocardiogram Report ---
Test Reason : Blood Pressure : */* mmHG Vent. Rate : 109 BPM Atrial Rate : 109 BPM P-R Int : 132 ms QRS Dur : 84 ms QT Int : 316 ms P-R-T Axes : -20 -10 -25 degrees QTcB Int : 425 ms Sinus tachycardia Inferior infarct , age undetermined Possible Anterolateral infarct (cited on or before 15-Mar-2023) Abnormal ECG When compared with ECG of 15-Mar-2023 12:46, Vent. rate has increased by 50 bpm Questionable change in initial forces of Lateral leads Confirmed by Jose Antonio Saxena ([id number]) on 01/14/2025 6:11:31 AM Referred By: REFERRED SELF Confirmed By: Jose Antonio Saxena
[2025-01-14 07:19] LABS: Hematocrit (blood only) 36.0 % (37.0-47.0); Hemoglobin 12.0 g/dl (12.0-16.0); Immature Granulocytes # (auto) 0.03 K/uL (0.01-0.20); Immature Granulocytes % (auto) 0.4 %; Mean Corpuscular Hemoglobin 28.8 pg (25.0-34.0); Mean Corpuscular Volume 86.3 fL (80.0-100.0); Platelet Count 268 K/uL (130-400); RDW Standard Deviation 41.7 fL (36.4-46.3); Red Blood Count 4.17 M/uL (4.20-5.40); White Blood Count 7.74 K/ul (4.8-10.8)
[2025-01-14 07:33] LABS: Anion Gap 6.0 (3-11); Blood Urea Nitrogen 12.0 mg/dl (6-23); Calcium 8.4 mg/dl (8.6-10.3); Carbon Dioxide 25.0 mmol/L (21-32); Chloride 109.0 mmol/L (98-107); Creatinine Clr Calc Pharmacy 72.2 ml/min; Glucose 85.0 mg/dl (70-99(Fasting)); Magnesium 2.2 mg/dl (1.7-2.4); Potassium 3.6 mmol/L (3.5-5.1); Sodium 140.0 mmol/L (136-145)
[2025-01-14 07:48] LABS: Thyroid Stimulating Hormone 1.342 uIu/ml (0.300-4.500)
[2025-01-14] MEDS: LIOTHYRONINE SODIUM 5 MCG TAB PO SCH (08:44)
[2025-01-14] MEDS: REMOVE NICODERM PATCH SCH (08:51)
--- NOTE | 2025-01-14 10:45 | Hospitalist Progress Note ---
Date of Service January 14, 2025 Assessment & Plan (1) Pneumonia due to COVID-19 virus: (2) Multiple sclerosis: (3) Lumbar stenosis with neurogenic claudication: Plan Patient 64-year-old female with PMH MS not on therapy who presents with SOB, cough #COVID PNA -CT chest showing b/l LL opacities consistent with multifocal PNA -Requiring 2L NC. She was not in respiratory failure. She did not have sepsis Plan -Continue decadron x 10 days -Continue remdesivir x 5 days -Monitor LFTs while on remdesivir -Wean O2 as able -Encourage IS and flutter therapy -VTE prophylaxis with lovenox #MS -Not on any therapy -[place] [facility] [place]C/o acute on chronic paresthesias, likely exacerbated by covid infection -Very low suspicion she has a true demyelinating "flare" given her age -Regardless, she will be continued on decadron #Headache -Consistent with tension-type GROVER -Posterior neck and head pain, worse with coughing -No s/s migraine -K pad added -Tylenol prn -Trial of flexeril I spent a total of 55 minutes coordinating, documenting, and providing care for this patient excluding time spent in the performance of separately billed services. This included personally reviewing all current laboratories and imaging studies, medical reconciliation, outpatient chart review and discussion with specialists Admission and Anticipated Discharge Date Admission Date: January 13, 2025 Subjective Feeling well today. he main complaint is non productive cough, some SOB. paresthesias which are chronci but worse today. Also with posterior headache and neck pain no vision changes or neck stiffness Physical Exam Physical Exam: Vitals and labs reviewed General: Well appearing, NAD HEENT: EOMI, PERRLA No nuchal rigidity TTP of paraspinal muscles in neck Neck: Supple Cardiac: RRR no rubs gallops or murmurs Lungs: CTA no rhonchi wheezing or rales Abd: S NT ND BS positive : Deffered MSK: Full ROM. No obvious deformities Ext: No Edema cyanosis Skin: Warm, Dry Neuro: AOx3 No focal deficits. Psych: Normal Mood Results & Data Results & Data Vital Signs (Past 12 Hours) Vital Signs Temp Pulse Pulse Resp BP Pulse Ox O2 Del Method 01/14/25 07:55 94 Nasal Cannula 01/14/25 07:45 37 C 88 18 143/86 H 87 L Room Air 01/14/25 07:30 85 O2 Flow Rate 01/14/25 07:55 2 01/14/25 07:45 01/14/25 07:30 Laboratory Results Abnormal lab results 01/14/25 Range/Units 06:30 RBC 4.17 L (4.20-5.40) M/uL Hct 36.0 L (37.0-47.0) % MPV 9.3 L (9.4-12.4) fL [place] # (Auto) 0.91 H (0.11-0.59) K/uL Chloride 109 H (98-107) mmol/L Calcium 8.4 L (8.6-10.3) mg/dl
[2025-01-14] MEDS: CYCLOBENZAPRINE HCL 10 MG TAB PO PRN (11:50)
[2025-01-14] MEDS: REMDESIVIR 100 MG in SODIUM CHLORIDE 0.9% 230 ML IV SCH (11:50)
[2025-01-15 07:36] LABS: Alanine Aminotransferase 10 U/L (7-52)
--- NOTE | 2025-01-15 13:47 | Hospitalist Progress Note ---
Date of Service January 15, 2025 Assessment & Plan (1) Pneumonia due to COVID-19 virus: (2) Multiple sclerosis: (3) Lumbar stenosis with neurogenic claudication: Plan Patient 64-year-old female with PMH MS not on therapy who presents with SOB, cough #COVID PNA -CT chest showing b/l LL opacities consistent with multifocal PNA -Requiring 2L NC. Plan -Continue decadron x 10 days -Continue remdesivir -Monitor LFTs while on remdesivir -Wean O2 as able -Encourage IS and flutter therapy -VTE prophylaxis with lovenox #MS -Not on any therapy -Follows with MS clinic in [facility] -C/o acute on chronic paresthesias, likely exacerbated by covid infection -Very low suspicion she has a true demyelinating "flare" given her age -Regardless, she will be continued on decadron #Headache -Consistent with tension-type GROVER -Posterior neck and head pain, worse with coughing -No s/s migraine -K pad added -Tylenol prn -Trial of flexeril Please note the above document was generated using voice recognition software. It may contain grammatical, syntax or spelling errors. Any formal questions or concerns about the content, text or information contained within the body of this dictation should be directly addressed to the provider for clarification Admission and Anticipated Discharge Date Admission Date: January 13, 2025 Subjective Patient seen and examined at bedside. She is comfortable; not in distress. Reports that she is feeling better compared to previous day. Oxygen requirement is 2 L of oxygen by nasal cannula No significant events overnight Review of Systems Review of Systems: All systems reviewed & are unremarkable except as noted in Subjective Physical Exam Physical Exam: Vitals and labs reviewed General: Well appearing, NAD Cardiac: RRR no rubs gallops or murmurs Lungs: CTA no rhonchi wheezing or rales Abd: S NT ND BS positive MSK: Full ROM. No obvious deformities Ext: No Edema cyanosis Skin: Warm, Dry Neuro: AOx3 No focal deficits. Psych: Normal Mood Results & Data Results & Data Vital Signs (Past 12 Hours) Vital Signs Temp Pulse Pulse Resp BP Pulse Ox O2 Del Method 01/15/25 09:24 Nasal Cannula 01/15/25 06:56 36.7 C 63 18 124/82 94 Nasal Cannula 01/15/25 05:39 63 O2 Flow Rate 01/15/25 09:24 2 10/22/25 06:56 2 01/15/25 05:39
[2025-01-16 07:32] VITALS: TEMP 98.2; O2SAT 94
[2025-01-16 08:01] LABS: Alanine Aminotransferase 10 U/L (7-52)
[2025-01-16 09:58] VITALS: BP 133/76; PULSE 92; RESP 18
--- NOTE | 2025-01-16 10:49 | Discharge Summary ---
Date of Service January 16, 2025 Admission HPI Per Admitting Provider Patient 64-year-old female who last evening started with above complaints. Throughout the night she had sweats, rigors and chills. This morning she woke up with extreme fatigue and malaise. She started with a dry nonproductive cough. She felt significantly ill enough to seek attention in the emergency room. In the emergency room workup was consistent with COVID infection. She tested positive for COVID. She was mildly hypoxic on room air upon presentation. She was referred to our service for further evaluation. Time my evaluation patient is off oxygen after some breathing treatments. O2 sat is 91 to 93% on room air. She confirms above symptoms. She states that she has no known exposures. She was feeling well up to last evening and did all her usual weekend activities. She denies any chest pain. She admits to some shortness of breath this morning and difficulty with breathing on exertion prompting evaluation emergency room. No nausea or vomiting. No new problems with the bowels or bladder. No swelling in hands arms or feet. She does smoke about half a pack per day of cigarettes. Admission Exam Per Admitting Provider Constitutional: Alert, moderately ill in appearance, nontoxic HEENT: Mucous membranes moist. Sclera clear Neck: Soft, no adenopathy Lungs: Decreased breath sounds, prolonged expiratory phase, no noted wheezes at this time, a few rhonchi that clear with cough CV: S1-S2, regular Abdomen: Soft, nontender, nondistended Extremities: No significant edema Musculoskeletal: No significant joint tenderness Neuro: No focal deficits Psych: Cooperative, normal mood Principal Diagnosis COVID-19 pneumonia Discharge Exam Constitutional: WD/WN, vitals as above, NAD, sitting up in bed, pleasant, conversing easily Respiratory: normal respiratory effort, lungs clear to auscultation, no wheeze, rales, rhonchi. Normal insp/exp effort, no accessory muscle use Cardiovascular: RRR, no murmur, no edema Vessels: no JVD or carotid bruit Chest: normal inspection of chest Abdomen: normal bowel sounds, soft, nontender, no hepatosplenomegaly Musculoskeletal: no cyanosis or clubbing, extremities motor strength 5/5 Skin: no rashes, warm and dry normal turgor Neurologic: PERRL, EOMI, accommodation nl, no face palsy, no dysarthria CN's II- XI intact bilaterally and moves all extremities Psychiatric: A+Ox3, euthymic affect Discharge Data Allergies Allergy/AdvReac Type Severity Reaction Status Date / Time nickel Allergy Intermediate itchy ears Verified 03/15/23 15:00 with earrings WITH NICKEL -gets infected PER PT Sulfa (Sulfonamide Allergy Rash Verified 01/13/25 08:28 Antibiotics) morphine AdvReac Hypotension Verified 01/13/25 08:28 Consultations 01/13/25 10:11 ED Decision to Admit Stat Ordered Studies 01/13/25 06:18 CT angio chest PE protocol Stat Hospital Course (1) Pneumonia due to COVID-19 virus: (2) Multiple sclerosis: (3) Lumbar stenosis with neurogenic claudication: Plan Patient 64-year-old female with PMH MS not on therapy who presents with SOB, cough #COVID PNA Patient presented with shortness of breath and cough Found to have COVID-[address] chest showing b/l LL opacities consistent with multifocal PNA Requiring 2L NC on admision During the hospitalization, patient was admitted to telemetry floor. She was started on supplemental oxygen, remdesivir, Decadron. She reported improvement in her symptoms. Two-step oxygen evaluation done at the discharge she was sat urating well in room air at the time of the discharge. She was given prescription for 4 more days of steroids. Patient to follow-up with PCP Please note the above document was generated using voice recognition software. It may contain grammatical, syntax or spelling errors. Any formal questions or concerns about the content, text or information contained within the body of this dictation should be directly addressed to the provider for clarification Total Time Total Time Spent Total Time Spent (In Minutes): 45 Total Time Includes: Examination of the Patient, Discharge Planning, Medication Reconciliation, Communication With Other Providers and Other Discharge Plan Discharge Items Patient Disposition: Home - Self-Care Reason For Visit: SEPSIS, COVID, PNA Discharge Diagnosis: COVID PNA Condition on Discharge: Fair Activity: Resume your previous activity Non-emergency contact: Primary Care Provider Call non-emergency contact if: you have any medication questions and your symptoms worsen Follow-up/Referrals: Key Love MD [Primary Care Provider] - (Date & Time 01/22/2025 10:00 AM Provider: Key Love MD General Internal Medicine [facility]) Diet: Regular Addtl Attending Provider Instructions: You were admitted to the hospital for Covid 19 infection. You were treated with oxygen, Remdesivir and steroids during the hospitalization. You are prescribed Mucinex for 5 days and Prednisone 40mg once a day for 4 days. An appointment will be set up with your PCP for your follow up. Pending Studies at Discharge: No Stand-Alone Forms: My [facility] [employer], Smoking Cessation Medications and DC Order Prescriptions: New guaifenesin [Mucinex] 600 mg Tablet Extended Release 12hr 1,200 mg PO Q12 5 Days Qty: 20 0RF prednisone 20 mg tablet 40 mg PO DAILY 4 Days Qty: 8 0RF Continued cyanocobalamin (vitamin B-12) [Vitamin B-12] 1,000 mcg Tablet 1,000 mcg PO QPM magnesium oxide 400 mg magnesium Tablet 400 mg PO QPM atorvastatin 40 mg tablet 40 mg PO DAILY clonazepam 0.5 mg tablet 0.5 mg PO HS gabapentin 400 mg capsule 400 mg PO QID liothyronine 5 mcg tablet 12.5 mcg PO DAILY docusate sodium 100 mg Tablet 100 mg PO BID PRN (Reason: Constipation) cholecalciferol (vitamin D3) [Vitamin D3] 25 mcg (1,000 unit) Capsule 1,000 unit PO DAILY duloxetine 30 mg capsule,delayed release(DR/EC) 30 mg PO DAILY duloxetine 60 mg capsule,delayed release(DR/EC) 60 mg PO DAILY aspirin 81 mg Tablet,Delayed Release (Dr/Ec) 81 mg PO BID Qty: 60 0RF nicotine [Nicoderm CQ] 21 mg/24 hr Patch 24 Hour 21 mg transdermal QAM Qty: 28 0RF oxycodone 5 mg Tablet 5 mg PO Q6H PRN (Reason: pain) Qty: 10 0RF Discharge Orders: Discharge Order (Routine); Ordered 01/16/25 Ordered By: Aftab Lares/Other Patient Handouts: COVID-19 Home Care, Chest and Lung Problems Admission Data Admit Date/Time: 01/13/25 10:28 Attending Provider: Aftab Hudson Admit Provider: Evan Díaz Primary Care Provider: Key Love Other Providers: Evan Díaz Other Interventions: Discharge Summary Assessment (RN) Last Done: 01/16/25 09:57
== END 2025-01-16 10:36 | disposition home or self-care (01) | DRG 177 ==
LOC: ED 05:09 → EDINP 10:28 → SUATTDRO 10:28 → 2W 11:47